=== PATIENT | male | born 1940 | race Caucasian/White ===

== ENCOUNTER 2016-09-04 12:30 | Emergency (ER) | payer MEDICARE, OTHER ==
[~2016-09-04] VITALS: Ht 170.2 cm; Wt 80.0 kg
--- NOTE | 2016-09-04 12:42 | PD ---
HPI Chief Complaint: Vomiting Time Seen by Provider: 12:42 Travel History International Travel<30 days: No Contact w/Intl Traveler<30days: No Traveled to known affect area: No History of Present Illness HPI 76-year-old male presents to emergency department from nursing facility with 2 days of vomiting and one episode of diarrhea yesterday. Patient states he had lunch and then vomited up what he ate today. Currently patient has no complaints of pain, nausea, or fever. Patient has no history of bowel obstruction, diverticulitis, or or previous abdominal surgeries. Patient denies urinary symptoms. Patient has no complaints of dizziness, weakness, upper respiratory symptoms, chest pain, shortness of breath, or cough. He has no known drug allergies. [facility] Social History Alcohol Use: No Tobacco Use: No Substance Use: No Allergies-Medications (Allergen,Severity, Reaction): Coded Allergies: No Known Allergies (Unverified , 09/04/16) Reported Meds & Prescriptions Reported Meds & Active Scripts Active Reported Betamethasone Dipropionate Topical 0.05% Cream 1 Applic TOPICAL BID Risperidone 1 Mg Tab 1 Mg PO HS Allergy (Loratadine) 10 Mg Tab Lisinopril 10 Mg Tab 10 Mg PO DAILY Review of Systems Except as stated in HPI: all other systems reviewed are Neg General / Constitutional: No: Fever Eyes: No: Visual changes HENT: No: Headaches Cardiovascular: No: Chest Pain or Discomfort Respiratory: No: Shortness of Breath Gastrointestinal: No: Abdominal Pain Genitourinary: No: Dysuria Musculoskeletal: No: Pain Skin: No Rash Neurologic: No: Weakness Psychiatric: No: Depression Endocrine: No: Polydipsia Hematologic/Lymphatic: No: Easy Bruising Physical Exam Narrative GENERAL: Patient is in good spirits and in no acute distress. SKIN: Warm and dry. Normal color. Decreased turgor with mild tenting. No diaphoresis. HEAD: Atraumatic. Normocephalic. EYES: Pupils equal and round. No scleral icterus. No injection or drainage. ENT: No nasal bleeding or discharge. Mucous membranes pink and moist. Pharynx is clear. Airway is patent. NECK: Trachea midline. Neck is supple nontender. CARDIOVASCULAR: Regular rate and rhythm. No murmurs gallops or rubs appreciated. RESPIRATORY: No accessory muscle use. Clear to auscultation. Breath sounds equal bilaterally. GASTROINTESTINAL: Abdomen soft, non-tender, nondistended. Normal bowel sounds throughout. Hepatic and splenic margins not palpable. MUSCULOSKELETAL: Extremities without clubbing, cyanosis, or edema. No obvious deformities. NEUROLOGICAL: Awake and alert. No obvious cranial nerve deficits. Motor grossly within normal limits. Five out of 5 muscle strength in the arms and legs. Normal speech. PSYCHIATRIC: Appropriate mood and affect; insight and judgment normal. Data Data Last Documented VS Vital Signs Date Time Temp Pulse Resp B/P Pulse Ox O2 Delivery O2 Flow Rate FiO2 09/04/16 13:31 96 Room Air 09/04/16 12:43 97.9 98 19 139/70 Orders Electrocardiogram (09/04/16 ) Complete Blood Count With Diff (09/04/16 12:49) Lipase (09/04/16 12:49) Lactic Acid (09/04/16 12:49) Urinalysis - C+S If Indicated (09/04/16 12:49) Iv Access Insert/Monitor (09/04/16 12:49) Ecg Monitoring (09/04/16 12:49) Oximetry (09/04/16 12:49) Ondansetron Inj (Zofran Inj) (09/04/16 13:00) Sodium Chlor 0.9% 1000 Ml Inj (Ns 1000 M (09/04/16 12:49) Sodium Chloride 0.9% Flush (Ns Flush) (09/04/16 13:00) Chest, Single Ap (09/04/16 12:49) Abdomen, Flat & Upright (09/04/16 12:49) Troponin I (09/04/16 12:49) Comprehensive Metabolic Panel (09/04/16 13:00) Lactic Acid (09/04/16 15:14) Labs Laboratory Tests Test 09/04/16 09/04/16 09/04/16 13:00 14:45 15:20 White Blood Count 11.8 TH/MM3 Red Blood Count 4.95 MIL/MM3 Hemoglobin 14.5 GM/DL Hematocrit 42.5 % Mean Corpuscular Volume 85.9 FL Mean Corpuscular Hemoglobin 29.4 PG Mean Corpuscular Hemoglobin 34.2 % Concent Red Cell Distribution Width 14.3 % Platelet Count 144 TH/MM3 Mean Platelet Volume 8.8 FL Neutrophils (%) (Auto) 89.1 % Lymphocytes (%) (Auto) 3.7 % Monocytes (%) (Auto) 6.7 % Eosinophils (%) (Auto) 0.1 % Basophils (%) (Auto) 0.4 % Neutrophils # (Auto) 10.5 TH/MM3 Lymphocytes # (Auto) 0.4 TH/MM3 Monocytes # (Auto) 0.8 TH/MM3 Eosinophils # (Auto) 0.0 TH/MM3 Basophils # (Auto) 0.0 TH/MM3 CBC Comment AUTO DIFF Differential Comment AUTO DIFF CONFIRMED Platelet Estimate LOW Platelet Morphology Comment NORMAL Red Cell Morphology Comment NORMAL Sodium Level 139 MEQ/L Potassium Level 3.4 MEQ/L Chloride Level 110 MEQ/L Carbon Dioxide Level 20.2 MEQ/L Anion Gap 9 MEQ/L Blood Urea Nitrogen 19 MG/DL Creatinine 1.05 MG/DL Estimat Glomerular Filtration 68 ML/MIN Rate Random Glucose 102 MG/DL Lactic Acid Level 2.5 mmol/L 1.9 mmol/L Calcium Level 6.9 MG/DL Protein Corrected Calcium 7.6 MG/DL Total Bilirubin 0.9 MG/DL Aspartate Amino Transf 25 U/L (AST/SGOT) Alanine Aminotransferase 29 U/L (ALT/SGPT) Alkaline Phosphatase 55 U/L Troponin I LESS THAN 0.02 NG/ML Total Protein 5.8 GM/DL Albumin 3.0 GM/DL Lipase 67 U/L Urine Color YELLOW Urine Turbidity HAZY Urine pH 5.5 Urine Specific [place] 1.034 Urine Protein 30 mg/dL Urine Glucose (UA) NEG mg/dL Urine Ketones TRACE mg/dL Urine Occult Blood TRACE Urine Nitrite NEG Urine Bilirubin NEG Urine Urobilinogen LESS THAN 2.0 MG/DL Urine Leukocyte Esterase NEG Urine RBC 4 /hpf Urine WBC 3 /hpf Urine Squamous Epithelial <1 /hpf Cells Urine Mucus MANY /lpf Microscopic Urinalysis Comment CULT NOT INDICATED MDM Medical Decision Making Medical Screen Exam Complete: Yes Emergency Medical Condition: Yes Differential Diagnosis Acute nausea and vomiting. Diarrhea. Gastroenteritis. Dehydration. Electrolyte imbalance. Cardiac syndrome. Narrative Course Patient is medically stable at time of exam. Laboratory including CBC, CMP, lactic acid, lipase, urinalysis, and troponin. Chest x-ray and abdominal flat and upright ordered. IV access is obtained patient was given 4 mg Zofran IV as well as 1000 mg normal saline bolus. CBC shows mild leukocytosis of 11.8. Lactic acid is elevated at 2.5. Troponin is negative at 0.02. Lipase is normal. CMP shows potassium 3.4, chloride of 110, Jodee access of 20.2, BUN is 19, creatinine 1.05, lactic acid is elevated at 2.5. Troponin is less than 0.02. Lipase is 67. Albumin is 3.0. Chest x-ray shows no acute process per radiologist. Abdominal x-ray shows signs of probable gastroenteritis with no signs of obstruction. Patient is discussed with Dr. Keating who recommends repeat lactic acid. CT scan is not felt warranted after Dr. Keating examines the patient. Patient tolerated oral challenge, and lactic acid is improved to 1.9 after IV hydration. Patient is able to ambulate to the commode with assistance. Patient is felt stable to be returned to the nursing facility. Patient is given prescription for Zofran 4 mg every 6 hours when necessary nausea/vomiting #15. Patient is to rest and push fluids and follow-up with his primary care physician. Patient can return to emergency Department with worsening symptoms if felt warranted. Diagnosis Primary Impression: Gastroenteritis Additional Impressions: Nausea and vomiting in adult Dehydration Referrals: Primary Care Physician Patient Instructions: Acute Nausea and Vomiting (ED), Dehydration (ED), Gastroenteritis (ED), General Instructions Additional Instructions: Patient is felt stable to be returned to the nursing facility. Patient is given prescription for Zofran 4 mg every 6 hours when necessary nausea/vomiting #15. Patient is to rest and push fluids and follow-up with his primary care physician. Patient can return to emergency Department with worsening symptoms if felt warranted. Disposition: 03 DISCHARGE TO SNF Condition: Stable Trung Cortez Sep 04, 2016 12:42
[2016-09-04 12:43] VITALS: BP 139/70; PULSE 98; RESP 19; TEMP 97.9; O2SAT 95
[2016-09-04] MEDS ORDERED: SODIUM CHLOR 0.9% 1000 ML INJ 1,000 ML IV SCH (12:49)
[2016-09-04] MEDS ORDERED: RISP1TAB2 PO (12:52)
[2016-09-04] MEDS ORDERED: LISI10TA3 PO (12:52)
[2016-09-04] MEDS ORDERED: BETA0.052 TOPICAL (12:52)
[2016-09-04] MEDS ORDERED: LORA-520 (12:52)
[2016-09-04] MEDS ORDERED: ONDANSETRON HCL 4 MG/2 ML VIAL IVP ONE (13:00)
[2016-09-04] MEDS ORDERED: SODIUM CHLORIDE 0.9% FLUSH 10 ML FLUSH IV FLUSH PRN (13:00)
[2016-09-04 13:26] LABS: AUTOMATED NEUTROPHIL # 10.5 TH/MM3 (1.8-7.7); BASOPHIL % 0.4 % (0.0-2.0); EOSINOPHIL % 0.1 % (0.0-4.0); HEMATOCRIT 42.5 % (39.0-51.0); LYMPH % 3.7 % (9.0-44.0); LYMPHOCYTE # 0.4 TH/MM3 (1.0-4.8); MEAN CELL VOLUME 85.9 FL (80.0-100.0); MEAN CORPUSCULAR HEMOGLOBIN 29.4 PG (27.0-34.0); MEAN CORPUSCULAR HGB CONC 34.2 % (32.0-36.0); MONO % 6.7 % (0.0-8.0); NEUT % 89.1 % (16.0-70.0); PLATELET COUNT 144 TH/MM3 (150-450); RED BLOOD COUNT 4.95 MIL/MM3 (4.50-5.90); RED CELL DISTRIBUTION WIDTH 14.3 % (11.6-17.2); WHITE BLOOD COUNT 11.8 TH/MM3 (4.0-11.0)
[2016-09-04 13:31] VITALS: O2SAT 96
[2016-09-04 13:31] LABS: HEMO FLAGS AUTO DIFF
--- NOTE | 2016-09-04 13:51 | RADRPT ---
EXAM DATE/TIME: 09/04/2016 13:09 [facility] COMPARISON: No previous studies available for comparison. INDICATIONS : Chest pain. MEDICAL HISTORY : None. SURGICAL HISTORY : None. ENCOUNTER: Initial ACUITY: 1 day PAIN SCORE: 0/10 LOCATION: Bilateral chest FINDINGS: The lungs are clear without infiltrate, nodule, or mass. There is no appreciable pleural effusion fo r technique. Heart and mediastinum are unremarkable. CONCLUSION: No acute cardiopulmonary disease. Brian Miner MD on September 04, 2016 at 13:49 Board Certified Radiologist. This report was verified electronically.
--- NOTE | 2016-09-04 13:52 | RADRPT ---
EXAM DATE/TIME: 09/04/2016 13:12 [facility] COMPARISON: No previous studies available for comparison. INDICATIONS : Vomiting. MEDICAL HISTORY : None. SURGICAL HISTORY : None. ENCOUNTER: Initial ACUITY: 1 day PAIN SCORE: 0/10 LOCATION: Abdomen FINDINGS: The bowel gas is nonspecific. There are no signs of obstruction or free air for technique. No defini te calcified stones are identified for technique. Multiple nonspecific air-fluid levels are identifie d possibly representing gastroenteritis. CONCLUSION: Nonspecific air-fluid levels possibly gastroenteritis. Brian Miner MD on September 04, 2016 at 13:49 Board Certified Radiologist. This report was verified electronically.
[2016-09-04 14:02] LABS: PLATELET ESTIMATE SMEAR LOW (NORMAL); PLATELET MORPHOLOGY NORMAL (NORMAL); SCAN/DIFF AUTO DIFF CONFIRMED
--- NOTE | 2016-09-04 14:23 | PD ---
Physical Exam Date Seen by Provider: Sep 04, 2016 Time Seen by Provider: 13:00 Narrative I am seeing the patient with Trung Cortez PA-C. 76-year-old gentleman who presents from the correction with reported vomiting 2 episodes with one episode of loose stools yesterday. When the patient arrived he was pain free and discomfort free. The patient reports that his last episode of vomiting was after lunch. He denies any fevers, chills. He denies any abdominal pain. He denies any dizziness. He denies any change in bowel movements other than the loose stools yesterday. He states he had a bowel movement about 11:30 this morning which was normal in consistency. There is no history of abdominal obstructions in the past. Data Data Last Documented VS Vital Signs Date Time Temp Pulse Resp B/P Pulse Ox O2 Delivery O2 Flow Rate FiO2 09/04/16 18:09 94 18 109/61 94 Room Air 09/04/16 12:43 97.9 Orders Electrocardiogram (09/04/16 ) Complete Blood Count With Diff (09/04/16 12:49) Lipase (09/04/16 12:49) Lactic Acid (09/04/16 12:49) Urinalysis - C+S If Indicated (09/04/16 12:49) Iv Access Insert/Monitor (09/04/16 12:49) Ecg Monitoring (09/04/16 12:49) Oximetry (09/04/16 12:49) Ondansetron Inj (Zofran Inj) (09/04/16 13:00) Sodium Chlor 0.9% 1000 Ml Inj (Ns 1000 M (09/04/16 12:49) Sodium Chloride 0.9% Flush (Ns Flush) (09/04/16 13:00) Chest, Single Ap (09/04/16 12:49) Abdomen, Flat & Upright (09/04/16 12:49) Troponin I (09/04/16 12:49) Comprehensive Metabolic Panel (09/04/16 13:00) Lactic Acid (09/04/16 15:14) Labs Laboratory Tests Test 09/04/16 09/04/16 09/04/16 13:00 14:45 15:20 White Blood Count 11.8 TH/MM3 Red Blood Count 4.95 MIL/MM3 Hemoglobin 14.5 GM/DL Hematocrit 42.5 % Mean Corpuscular Volume 85.9 FL Mean Corpuscular Hemoglobin 29.4 PG Mean Corpuscular Hemoglobin 34.2 % Concent Red Cell Distribution Width 14.3 % Platelet Count 144 TH/MM3 Mean Platelet Volume 8.8 FL Neutrophils (%) (Auto) 89.1 % Lymphocytes (%) (Auto) 3.7 % Monocytes (%) (Auto) 6.7 % Eosinophils (%) (Auto) 0.1 % Basophils (%) (Auto) 0.4 % Neutrophils # (Auto) 10.5 TH/MM3 Lymphocytes # (Auto) 0.4 TH/MM3 Monocytes # (Auto) 0.8 TH/MM3 Eosinophils # (Auto) 0.0 TH/MM3 Basophils # (Auto) 0.0 TH/MM3 CBC Comment AUTO DIFF Differential Comment AUTO DIFF CONFIRMED Platelet Estimate LOW Platelet Morphology Comment NORMAL Red Cell Morphology Comment NORMAL Sodium Level 139 MEQ/L Potassium Level 3.4 MEQ/L Chloride Level 110 MEQ/L Carbon Dioxide Level 20.2 MEQ/L Anion Gap 9 MEQ/L Blood Urea Nitrogen 19 MG/DL Creatinine 1.05 MG/DL Estimat Glomerular Filtration 68 ML/MIN Rate Random Glucose 102 MG/DL Lactic Acid Level 2.5 mmol/L 1.9 mmol/L Calcium Level 6.9 MG/DL Protein Corrected Calcium 7.6 MG/DL Total Bilirubin 0.9 MG/DL Aspartate Amino Transf 25 U/L (AST/SGOT) Alanine Aminotransferase 29 U/L (ALT/SGPT) Alkaline Phosphatase 55 U/L Troponin I LESS THAN 0.02 NG/ML Total Protein 5.8 GM/DL Albumin 3.0 GM/DL Lipase 67 U/L Urine Color YELLOW Urine Turbidity HAZY Urine pH 5.5 Urine Specific [place] 1.034 Urine Protein 30 mg/dL Urine Glucose (UA) NEG mg/dL Urine Ketones TRACE mg/dL Urine Occult Blood TRACE Urine Nitrite NEG Urine Bilirubin NEG Urine Urobilinogen LESS THAN 2.0 MG/DL Urine Leukocyte Esterase NEG Urine RBC 4 /hpf Urine WBC 3 /hpf Urine Squamous Epithelial <1 /hpf Cells Urine Mucus MANY /lpf Microscopic Urinalysis Comment CULT NOT INDICATED MDM Medical Record Reviewed: Yes Supervised Visit with DEYVI: Yes Differential Diagnosis Gastroenteritis versus diverticulitis versus cystitis versus bowel obstruction Narrative Course 76-year-old gentleman who presents from the correction after having an episode of vomiting after lunch. The patient had a previous episode and also had a loose stool earlier. The patient is in no discomfort whatsoever. He is not nauseous or having abdominal pain on my examination. His abdomen is soft and nontender. Diagnosis Primary Impression: Nausea and vomiting in adult Additional Impressions: Gastroenteritis Dehydration Med/Other Pt SpecificInfo: Prescription(s) given Scripts Ondansetron Odt (Zofran Odt)4 Mg Tab4 Mg SL Q6HR PRN (Nausea/Vomiting) #15 TAB Prov:Yuval Keating MD 09/04/16 Disposition: 01 DISCHARGE HOME Condition: Stable Yuval Keating MD Sep 04, 2016 14:23
[2016-09-04 14:45] VITALS: BP 120/58; PULSE 92; RESP 18; O2SAT 95
[2016-09-04 15:07] LABS: ALKALINE PHOSPHATASE 55 U/L (45-117); ALT (GPT) 29 U/L (12-78); ANION GAP 9 MEQ/L (5-15); AST (GOT) 25 U/L (15-37); BICARBONATE 20.2 MEQ/L (21.0-32.0); BLOOD UREA NITROGEN 19 MG/DL (7-18); CALCIUM-PROTEIN CORRECTED 7.6 MG/DL (8.5-10.1); CHLORIDE 110 MEQ/L (98-107); GLOMERULAR FILTRATION RATE 68 ML/MIN (>89); POTASSIUM 3.4 MEQ/L (3.5-5.1); SODIUM (NA) 139 MEQ/L (136-145); TOTAL BILIRUBIN ADULT 0.9 MG/DL (0.2-1.0)
[2016-09-04 15:12] LABS: BLOOD, URINE TRACE (NEG); COMMENT (UR) CULT NOT INDICATED; CULTURE IF INDICATED CULT NOT INDICATED; GLUCOSE,URINE NEG (NEG); KETONE, URINE TRACE mg/dL (NEG); MUCUS URINE MANY /lpf (OCC); NITRITE,URINE NEG (NEG); PH, URINE 5.5 (5.0-8.5); SQUAMOUS EPITHELIAL CELL URINE <1 /hpf (0-5); URINE COLOR YELLOW (YELLW/STRAW)
[2016-09-04] MEDS ORDERED: ZOFR4TAB3 SL (16:01)
[2016-09-04 16:06] VITALS: BP 126/84; PULSE 97; RESP 19; O2SAT 94
[2016-09-04 18:09] VITALS: BP 109/61; PULSE 94; RESP 18; O2SAT 94
--- NOTE | 2016-09-05 14:06 | EKG ---
Date Performed: 09/04/2016 Time Performed: 12:56:40 PTAGE: 76 years EKG: Sinus rhythm WITH FIRST DEGREE AV BLOCK LEFT ANTERIOR FASCICULAR BLOCK NONSPECIFIC T-WAVE ABNORMALITY Compared to previous tracing, axis is more leftward and the GA interval is more prolonged. ABNORMAL ECG PREVIOUS TRACING : 06/19/1999 19.29 DOCTOR: Pierre Mcneil Interpretating Date/Time 09/05/2016 14:04:46
== END 2016-09-04 18:50 ==
LOC: NEPE 12:30
DX: K52.9 Noninfective gastroenteritis and colitis, unspecified (principal); R11.2 Nausea with vomiting, unspecified; E86.0 Dehydration; R94.31 Abnormal electrocardiogram [ECG] [EKG]
CPT/HCPCS: 71010; 74020; 80053; 81001; 83605; 83690; 84484; 85025; 93005; 96361; 96374; 99284; J2405; J7030

== ENCOUNTER 2017-06-29 15:44 | Observation (INO) | payer MEDICARE, OTHER ==
[~2017-06-29] VITALS: Ht 170.2 cm; Wt 84.5 kg
[~2017-06-29 15:44] MED LIST: BETA0.052 TOPICAL; LISI10TA3 PO; LORA-520; RISP1TAB2 PO; ZOFR4TAB3 SL
[2017-06-29 15:50] VITALS: BP 146/75; PULSE 77; RESP 16; TEMP 98.6; O2SAT 97
[2017-06-29] MEDS ORDERED: PROPARACAINE HCL 0.5% OPHT SOLN 15 ML BTL LEFT EYE ONE (17:30)
--- NOTE | 2017-06-29 18:08 | PD ---
HPI Chief Complaint: Eye Problems/Injury Time Seen by Provider: 17:25 Travel History International Travel<30 days: No Contact w/Intl Traveler<30days: No Traveled to known affect area: No History of Present Illness HPI 76-year-old male that presents to the ED for evaluation of left eye complaint. Per patient she's had left eye sensation of foreign body as well as some blurry vision since yesterday. Patient is somewhat of a poor historian. He does have a history of schizophrenia and suspect some dementia. He comes here via [facility] for evaluation of this. He denies wearing contacts or glasses. He states that he feels like there is something in his eye but he denies any injury or getting something in his eye. He states this happened yesterday. Per patient he has some pain but he states that his more itchy and annoying. He has some erythema noted on the eye. He denies any trauma. No falls. No history of glaucoma. No other medical issues at this time. Patient states that he does see from the left eye but is blurry. PFSH Past Medical History Genitourinary: Yes (BPH) Hypertension: Yes Schizophrenia: Yes Past Surgical History Tonsillectomy: Yes Social History Alcohol Use: No Tobacco Use: No Substance Use: No Allergies-Medications (Allergen,Severity, Reaction): Coded Allergies: No Known Allergies (Unverified , 09/04/16) Reported Meds & Prescriptions Reported Meds & Active Scripts Active Zofran Odt (Ondansetron Odt) 4 Mg Tab 4 Mg SL Q6HR PRN Reported Betamethasone Dipropionate Topical 0.05% Cream 1 Applic TOPICAL BID Risperidone 1 Mg Tab 1 Mg PO HS Allergy (Loratadine) 10 Mg Tab Lisinopril 10 Mg Tab 10 Mg PO DAILY Review of Systems Except as stated in HPI: all other systems reviewed are Neg Physical Exam Narrative GENERAL: SKIN: Warm and dry. HEAD: Atraumatic. Normocephalic. EYES: Pupils equal and round 4 mms reactive to light and accommodation with exception of the left eye for which he does not react at all.. No scleral icterus. No injection or drainage. EOM intact bilaterally. Peripheral vision intact bilaterally. Patient does have erythema of the conjunctiva. Fluorescein stain revealed no sign of foreign body or deformity. IOP is done and show 47, 41, 55. ENT: No nasal bleeding or discharge. Mucous membranes pink and moist. NECK: Trachea midline. No JVD. CARDIOVASCULAR: Regular rate and rhythm. RESPIRATORY: No accessory muscle use. Clear to auscultation. Breath sounds equal bilaterally. GASTROINTESTINAL: Abdomen soft, non-tender, nondistended. Hepatic and splenic margins not palpable. MUSCULOSKELETAL: Extremities without clubbing, cyanosis, or edema. No obvious deformities. NEUROLOGICAL: Awake and alert. No obvious cranial nerve deficits. Motor grossly within normal limits. Five out of 5 muscle strength in the arms and legs. Normal speech. PSYCHIATRIC: Appropriate mood and affect; insight and judgment normal. Data Data Last Documented VS Vital Signs Date Time Temp Pulse Resp B/P (MAP) Pulse Ox O2 Delivery O2 Flow Rate FiO2 06/29/17 15:50 98.6 77 16 146/75 (98) 97 Room Air Orders Orders Proparacaine 0.5% Opth Soln (Alcaine 0.5 (06/29/17 17:30) MDM Medical Decision Making Medical Screen Exam Complete: Yes Emergency Medical Condition: Yes Medical Record Reviewed: Yes Differential Diagnosis Conjunctivitis versus bacterial conjunctivitis versus foreign body versus glaucoma Narrative Course 76-year-old male that presents to the ED for evaluation of left eye symptoms. Patient was properly examined and was found to have signs and symptoms very concerning for acute angle-closure glaucoma. Patient was evaluated his IOPs on the left eye appear to be very high. I discussed this in my attending Dr. Wood who recommends the patient be moved to a different bed for further treatment and care. I instructed this to the triage nurse was able to get any of that right away. I discussed the case with Dr. Gaytan who to cover the case. Darius Young Jun 29, 2017 18:08
[2017-06-29] MEDS ORDERED: TIMOLOL MALEATE 0.5% OPHT SOLN 5 ML BTL EACH EYE ONE (18:15)
[2017-06-29] MEDS ORDERED: BRIMONIDINE TARTRATE 0.2% OPHT SOLN 5 ML BTL LEFT EYE ONE (18:15)
[2017-06-29] MEDS ORDERED: SODIUM CHLORIDE 0.9% FLUSH 10 ML FLUSH IV FLUSH PRN ×2 (18:15→21:45)
--- NOTE | 2017-06-29 18:26 | PD ---
Data Data Last Documented VS Vital Signs Date Time Temp Pulse Resp B/P (MAP) Pulse Ox O2 Delivery O2 Flow Rate FiO2 06/29/17 15:50 98.6 77 16 146/75 (98) 97 Room Air Orders Orders Proparacaine 0.5% Opth Soln (Alcaine 0.5 (06/29/17 17:30) Basic Metabolic Panel (Bmp) (06/29/17 18:13) Complete Blood Count With Diff (06/29/17 18:13) Prothrombin Time / Inr (Pt) (06/29/17 18:13) Act Partial Throm Time (Ptt) (06/29/17 18:13) Iv Access Insert/Monitor (06/29/17 18:13) Ecg Monitoring (06/29/17 18:13) Oximetry (06/29/17 18:13) Sodium Chloride 0.9% Flush (Ns Flush) (06/29/17 18:15) Timolol 0.5% Opth Soln (Timoptic 0.5% Op (06/29/17 18:15) Timolol 0.5% Opth Soln (Timoptic 0.5% Op (06/29/17 21:00) Brimonidine 0.2% Opth Soln (Alphagan 0.2 (06/29/17 18:15) Brimonidine 0.2% Opth Soln (Alphagan 0.2 (06/29/17 21:00) Acetazolamide Inj (Diamox Inj) (06/29/17 18:15) Acetazolamide Inj (Diamox Inj) (06/29/17 21:00) Latanoprost 0.005% Opth Soln (Xalatan 0. (06/29/17 21:00) Labs Laboratory Tests Test 06/29/17 18:55 White Blood Count 13.6 TH/MM3 Red Blood Count 5.34 MIL/MM3 Hemoglobin 16.1 GM/DL Hematocrit 45.0 % Mean Corpuscular Volume 84.3 FL Mean Corpuscular Hemoglobin 30.1 PG Mean Corpuscular Hemoglobin Concent 35.7 % Red Cell Distribution Width 14.3 % Platelet Count 184 TH/MM3 Mean Platelet Volume 8.1 FL Neutrophils (%) (Auto) 84.7 % Lymphocytes (%) (Auto) 7.5 % Monocytes (%) (Auto) 7.1 % Eosinophils (%) (Auto) 0.3 % Basophils (%) (Auto) 0.4 % Neutrophils # (Auto) 11.5 TH/MM3 Lymphocytes # (Auto) 1.0 TH/MM3 Monocytes # (Auto) 1.0 TH/MM3 Eosinophils # (Auto) 0.0 TH/MM3 Basophils # (Auto) 0.1 TH/MM3 CBC Comment DIFF FINAL Differential Comment Prothrombin Time 10.5 SEC Prothromb Time International Ratio 1.0 RATIO Activated Partial Thromboplast Time 24.5 SEC Blood Urea Nitrogen 15 MG/DL Creatinine 1.02 MG/DL Random Glucose 114 MG/DL Calcium Level 8.9 MG/DL Sodium Level 134 MEQ/L Potassium Level 3.9 MEQ/L Chloride Level 100 MEQ/L Carbon Dioxide Level 26.0 MEQ/L Anion Gap 8 MEQ/L Estimat Glomerular Filtration Rate 71 ML/MIN MDM Supervised Visit with DEYVI: Yes Narrative Course I, Dr. Gaytan, have reviewed the advance practice practitioner's documentation and am in agreement, met with the patient face to face, made the diagnosis, and the medical decision making was done by me. See his note for further details. The patient was initially evaluated in fast track by EDDIE Young and was found to have elevated intraocular pressure in the left eye and transferred to my care shortly afterwards. The patient is a 76-year-old male who presents from a senior living for evaluation of left eye pain, foreign body sensation, and blurry vision. Symptoms started yesterday. On exam the patient has significant scleral injection on the left eye with a clouded cornea and a nonreactive pupil. There is no proptosis. EOMI. Intraocular pressure in the left eye is 55 mmHg, in the right eye is 16 mmHg. Case discussed with on-call insights analyst Dr. Norton. The patient appears to be a very poor historian with history of schizophrenia and dementia and lives in an [facility]. I believe he will benefit from admission to receive medications to control his intraocular pressure. Dr. Norton recommends the patient be started on timolol twice a day, brimonidine twice a day, Diamox 500 mg 4 times a day, and latanoprost at night. Case discussed with hospitalist Dr. Adan who will admit the patient to her service. Diagnosis Primary Impression: Acute glaucoma of left eye Admitting Information Admitting Physician Requests: Jama Kee MD Jun 29, 2017 18:26
[2017-06-29 19:11] LABS: AUTOMATED NEUTROPHIL # 11.5 TH/MM3 (1.8-7.7); BASOPHIL # 0.1 TH/MM3 (0-0.2); BASOPHIL % 0.4 % (0.0-2.0); EOSINOPHIL % 0.3 % (0.0-4.0); HEMOGLOBIN 16.1 GM/DL (13.0-17.0); LYMPH % 7.5 % (9.0-44.0); MEAN CELL VOLUME 84.3 FL (80.0-100.0); MEAN CORPUSCULAR HEMOGLOBIN 30.1 PG (27.0-34.0); MEAN CORPUSCULAR HGB CONC 35.7 % (32.0-36.0); MEAN PLATELET VOLUME 8.1 FL (7.0-11.0); MONO % 7.1 % (0.0-8.0); NEUT % 84.7 % (16.0-70.0); PLATELET COUNT 184 TH/MM3 (150-450); RED BLOOD COUNT 5.34 MIL/MM3 (4.50-5.90); RED CELL DISTRIBUTION WIDTH 14.3 % (11.6-17.2); WHITE BLOOD COUNT 13.6 TH/MM3 (4.0-11.0)
[2017-06-29 19:19] LABS: PROTHROMBIN TIME - PATIENT 10.5 SEC (9.8-11.6)
[2017-06-29 19:32] LABS: CALCIUM 8.9 MG/DL (8.5-10.1); CREATININE 1.02 MG/DL (0.60-1.30)
[2017-06-29] MEDS: TIMOLOL MALEATE 0.5% OPHT SOLN 5 ML BTL LEFT EYE SCH (20:32)
[2017-06-29] MEDS ORDERED: LATANOPROST 0.005% OPHT SOLN 2.5 ML BTL LEFT EYE SCH (21:00)
[2017-06-29] MEDS: BRIMONIDINE TARTRATE 0.2% OPHT SOLN 5 ML BTL LEFT EYE SCH (21:00)
[2017-06-29] MEDS ORDERED: NALOXONE HCL 0.4 MG/ML AMP IV PUSH PRN (21:45)
[2017-06-29] MEDS ORDERED: ACETAMINOPHEN 325 MG TAB PO PRN (21:45)
[2017-06-29 21:55] VITALS: BP 156/90; PULSE 80; RESP 16; TEMP 98.1; O2SAT 95
[2017-06-29] MEDS ORDERED: risperiDONE 1 MG TAB PO SCH (22:00)
--- NOTE | 2017-06-29 22:36 | HHI.HP ---
[facility] Service [facility] Primary Care Physician Unknown Admission Diagnosis acute angle closure glaucoma Diagnoses: Travel History International Travel<30 Days: No Contact w/Intl Traveler <30 Da: No Traveled to Known Affected Are: No History of Present Illness 76-year-old male with a past medical history for hypertension, hyperlipidemia and schizophrenia presents to the emergency department for evaluation of sudden onset left eye pain. The patient reports that last night he began to have left eye pain and the vision in his left eye became blurry. He reports that he can still see and denies any sensitivity to light. He denies chest pain/shortness of breath. Denies nausea/vomiting/diarrhea. No fever/chills. Review of Systems Except as stated in HPI: all other systems reviewed are Neg Past Family Social History Past Medical History Hypertension Hyperlipidemia Schizophrenia Past Surgical History Tonsillectomy Reported Medications Reported Meds & Active Scripts Active Zofran Odt (Ondansetron Odt) 4 Mg Tab 4 Mg SL Q6HR PRN Reported Betamethasone Dipropionate Topical 0.05% Cream 1 Applic TOPICAL BID Risperidone 1 Mg Tab 1 Mg PO HS Allergy (Loratadine) 10 Mg Tab Lisinopril 10 Mg Tab 10 Mg PO DAILY Allergies: Coded Allergies: No Known Allergies (Unverified Allergy, Unknown, 06/29/17) Family History Negative for CAD/DM Social History Negative for alcohol, tobacco and illicit drugs Physical Exam Vital Signs Vital Signs Date Time Temp Pulse Resp B/P (MAP) Pulse Ox O2 Delivery O2 Flow Rate FiO2 06/29/17 21:55 98.1 80 16 156/90 (112) 95 06/29/17 15:50 98.6 77 16 146/75 (98) 97 Room Air Physical Exam GENERAL: male sitting up in bed SKIN: No rashes, ecchymoses or lesions. Cool and dry. HEAD: Atraumatic. Normocephalic. No temporal or scalp tenderness. EYES: Right pupil equal round and reactive. Left pupil unreactive. Vision intact. No conjunctival injection. Extraocular motions intact. No scleral icterus. ENT: Nose without bleeding, purulent drainage or septal hematoma. Throat without erythema, tonsillar hypertrophy or exudate. Uvula midline. Airway patent. NECK: Trachea midline. No JVD or lymphadenopathy. Supple, nontender, no meningeal signs. CARDIOVASCULAR: Regular rate and rhythm without murmurs, gallops, or rubs. RESPIRATORY: Clear to auscultation. Breath sounds equal bilaterally. No wheezes , rales, or rhonchi. GASTROINTESTINAL: Abdomen soft, non-tender, nondistended. No hepato-splenomegaly , or palpable masses. No guarding. MUSCULOSKELETAL: Extremities without clubbing, cyanosis, or edema. No joint tenderness, effusion, or edema noted. No calf tenderness. NEUROLOGICAL: Awake and alert. Cranial nerves II through XII intact. Motor and sensory grossly within normal limits. Normal speech. Laboratory Laboratory Tests Test 06/29/17 18:55 White Blood Count 13.6 Red Blood Count 5.34 Hemoglobin 16.1 Hematocrit 45.0 Mean Corpuscular Volume 84.3 Mean Corpuscular Hemoglobin 30.1 Mean Corpuscular Hemoglobin Concent 35.7 Red Cell Distribution Width 14.3 Platelet Count 184 Mean Platelet Volume 8.1 Neutrophils (%) (Auto) 84.7 Lymphocytes (%) (Auto) 7.5 Monocytes (%) (Auto) 7.1 Eosinophils (%) (Auto) 0.3 Basophils (%) (Auto) 0.4 Neutrophils # (Auto) 11.5 Lymphocytes # (Auto) 1.0 Monocytes # (Auto) 1.0 Eosinophils # (Auto) 0.0 Basophils # (Auto) 0.1 CBC Comment DIFF FINAL Differential Comment Prothrombin Time 10.5 Prothromb Time International Ratio 1.0 Activated Partial Thromboplast Time 24.5 Blood Urea Nitrogen 15 Creatinine 1.02 Random Glucose 114 Calcium Level 8.9 Sodium Level 134 Potassium Level 3.9 Chloride Level 100 Carbon Dioxide Level 26.0 Anion Gap 8 Estimat Glomerular Filtration Rate 71 Result Diagram: 06/29/17185406/29/171854 Caprini VTE Risk Assessment Caprini VTE Risk Assessment: Mod/High Risk (score >= 2) Caprini Risk Assessment Model Point Value = 1 Point Value = 2 Point Value = 3 Point Value = 5 Age 41-60 Minor surgery BMI > 25 kg/m2 Swollen legs Varicose veins or History of unexplained or recurrent spontaneous Oral contraceptives or hormone replacement Sepsis (< 1 month) Serious lung disease, including pneumonia (< 1 month) Abnormal pulmonary function Acute myocardial infarction Congestive heart failure (< 1 month) History of inflammatory bowel disease Medical patient at bed rest Age 61-74 Arthroscopic surgery Major open surgery (> 45 min) Laparoscopic surgery (> 45 min) Malignancy Confined to bed (> 72 hours) Immobilizing plaster cast Central venous access Age >= 75 History of VTE Family history of VTE Factor V Leiden Prothrombin [id number] Lupus anticoagulant Anticardiolipin antibodies Elevated serum homocysteine Heparin-induced thrombocytopenia Other congenital or acquired thrombophilia Stroke (< 1 month) Elective arthroplasty Hip, pelvis, or leg fracture Acute spinal cord injury (< 1 month) Prophylaxis Regimen Total Risk Factor Score Risk Level Prophylaxis Regimen 0-1 Low Early ambulation 2 Moderate Order ONE of the following: *Sequential Compression Device (SCD) *Heparin 5000 units SQ BID 3-4 Higher Order ONE of the following medications: *Heparin 5000 units SQ TID *Enoxaparin/Lovenox 40 mg SQ daily (WT < 150 kg, CrCl > 30 mL/min) *Enoxaparin/Lovenox 30 mg SQ daily (WT < 150 kg, CrCl > 10-29 mL/min) *Enoxaparin/Lovenox 30 mg SQ BID (WT < 150 kg, CrCl > 30 mL/min) AND/OR *Sequential Compression Device (SCD) 5 or more Highest Order ONE of the following medications: *Heparin 5000 units SQ TID (Preferred with Epidurals) *Enoxaparin/Lovenox 40 mg SQ daily (WT < 150 kg, CrCl > 30 mL/min) *Enoxaparin/Lovenox 30 mg SQ daily (WT < 150 kg, CrCl > 10-29 mL/min) *Enoxaparin/Lovenox 30 mg SQ BID (WT < 150 kg, CrCl > 30 mL/min) AND *Sequential Compression Device (SCD) Assessment and Plan Assessment and Plan Assessment/plan: 1. Acute angle closure glaucoma Case discussed with Dr. Norton who recommends timolol twice a day, brimonidine twice a day, Diamox 500 mg 4 times a day, and latanoprost at night. Patient will be evaluated by ophthalmology tomorrow - may be a candidate for laser intervention Concern for compliance 2. Hypertension Continue home lisinopril 3. Schizophrenia Continue home Risperdal FEN Nothing by mouth NS at 84 cc/hour Electrolytes: Monitor and replete when necessary Georgie Adan MD Jun 29, 2017 22:36
[2017-06-30] MEDS: SODIUM CHLOR 0.9% 1000 ML INJ 1,000 ML IV SCH ×2 (01:12→10:55)
[2017-06-30 01:29] VITALS: BP 131/85; PULSE 110; RESP 17; TEMP 97.6; O2SAT 94
[2017-06-30 03:33] VITALS: BP 113/72; PULSE 108; RESP 17; TEMP 98.3; O2SAT 94
[2017-06-30 07:33] LABS: AUTOMATED NEUTROPHIL # 8.8 TH/MM3 (1.8-7.7); BASOPHIL # 0.1 TH/MM3 (0-0.2); BASOPHIL % 0.5 % (0.0-2.0); EOSINOPHIL # 0.1 TH/MM3 (0-0.4); EOSINOPHIL % 0.7 % (0.0-4.0); HEMATOCRIT 44.6 % (39.0-51.0); LYMPH % 11.5 % (9.0-44.0); LYMPHOCYTE # 1.3 TH/MM3 (1.0-4.8); MEAN CELL VOLUME 84.2 FL (80.0-100.0); MEAN CORPUSCULAR HEMOGLOBIN 30.3 PG (27.0-34.0); MEAN CORPUSCULAR HGB CONC 35.9 % (32.0-36.0); MEAN PLATELET VOLUME 8.4 FL (7.0-11.0); MONO % 11.2 % (0.0-8.0); MONOCYTE # 1.3 TH/MM3 (0-0.9); NEUT % 76.1 % (16.0-70.0); PLATELET COUNT 169 TH/MM3 (150-450); RED CELL DISTRIBUTION WIDTH 14.1 % (11.6-17.2); WHITE BLOOD COUNT 11.6 TH/MM3 (4.0-11.0)
[2017-06-30] MEDS ORDERED: LISINOPRIL 10 MG TAB PO SCH (09:00)
[2017-06-30] MEDS ORDERED: SODIUM CHLORIDE 0.9% FLUSH 10 ML FLUSH IV FLUSH SCH (09:00)
[2017-06-30 09:11] VITALS: BP 128/77; PULSE 93; RESP 18; TEMP 98.6; O2SAT 93
--- NOTE | 2017-06-30 09:20 | PD.CONS ---
History of Present Illness Service Ophthalmology Consult Requested By Reason for Consult acute angle closure left eye Primary Care Physician Unknown Diagnoses: History of Present Illness 76 yo M with h/o dementia and schizophrenia presenting from a longterm to the ED c/o 2 day history of left eye pain and blurry vision. Patient is a poor historian. He denies any significant ocular history. Dr. Gaytan found his IOP in the left eye to be in the 50s yesterday with a nonreactive pupil and he diagnosed him with acute angle closure glaucoma. He was started on Diamox, timolol, brimonidine, and latanoprost. Pt states he feels much better this morning with no pain and his vision seems to be improving a little. Past Family Social History Allergies: Coded Allergies: No Known Allergies (Unverified Allergy, Unknown, 06/29/17) Physical Exam Vital Signs Vital Signs Date Time Temp Pulse Resp B/P (MAP) Pulse Ox O2 Delivery O2 Flow Rate FiO2 06/30/17 03:33 98.3 108 17 113/72 (86) 94 06/30/17 01:29 97.6 110 17 131/85 (100) 94 06/29/17 21:55 98.1 80 16 156/90 (112) 95 06/29/17 15:50 98.6 77 16 146/75 (98) 97 Room Air Physical Exam Va sc at near OD 20/40, OS HM EOM full OU, no diplopia CVF full OD, unable OS Pupils 2-1 OD, 3mm nonreactive OS IOP 15 OU mm Hg Anterior exam OD - normal eyelid, C/S W&Q, K clear, AC deep, pupil round, lens clear OS - normal eyelid, conj injection, K edema, AC shallow, pupil fixed, lens clear Laboratory Laboratory Tests Test 06/29/17 18:55 06/30/17 06:45 White Blood Count 13.6 11.6 Red Blood Count 5.34 5.30 Hemoglobin 16.1 16.0 Hematocrit 45.0 44.6 Mean Corpuscular Volume 84.3 84.2 Mean Corpuscular Hemoglobin 30.1 30.3 Mean Corpuscular Hemoglobin Concent 35.7 35.9 Red Cell Distribution Width 14.3 14.1 Platelet Count 184 169 Mean Platelet Volume 8.1 8.4 Neutrophils (%) (Auto) 84.7 76.1 Lymphocytes (%) (Auto) 7.5 11.5 Monocytes (%) (Auto) 7.1 11.2 Eosinophils (%) (Auto) 0.3 0.7 Basophils (%) (Auto) 0.4 0.5 Neutrophils # (Auto) 11.5 8.8 Lymphocytes # (Auto) 1.0 1.3 Monocytes # (Auto) 1.0 1.3 Eosinophils # (Auto) 0.0 0.1 Basophils # (Auto) 0.1 0.1 CBC Comment DIFF FINAL AUTO DIFF Differential Comment Prothrombin Time 10.5 Prothromb Time International Ratio 1.0 Activated Partial Thromboplast Time 24.5 Blood Urea Nitrogen 15 Creatinine 1.02 Random Glucose 114 Calcium Level 8.9 Sodium Level 134 Potassium Level 3.9 Chloride Level 100 Carbon Dioxide Level 26.0 Anion Gap 8 Estimat Glomerular Filtration Rate 71 Result Diagram: 06/30/17 0645 06/29/17 1855 Assessment and Plan Problem List: (1) Acute angle-closure glaucoma of left eye ICD Codes: H40.212 - Acute angle-closure glaucoma, left eye Plan: Intraocular pressure has improved greatly overnight from 50s to 15 this morning. Will need permanent treatment with laser peripheral iridotomy which I will schedule as an outpatient (the laser is located at [facility]). Discharge today on Diamox 500mg QID, timolol drops 0.5% 1 drop BID OS, brimonidine 0.2% 1 drop TID OS, latanoprost 1 drop qhs OS. Patient to follow up tomorrow morning (07/01/17) in my clinic at 9:00 AM ([address] [facility]. ). Daisha Norton MD Jun 30, 2017 09:20
[2017-06-30] MEDS ORDERED: Brimonidine 0.2% Opth Soln LEFT EYE (09:40)
[2017-06-30] MEDS ORDERED: LATA.005%O LEFT EYE (09:40)
[2017-06-30] MEDS ORDERED: OPTH LEFT EYE (09:40)
[2017-06-30] MEDS ORDERED: TIMOLOL 0.5% LEFT EYE (09:40)
[2017-06-30] MEDS ORDERED: ACET250T3 PO (09:40)
--- NOTE | 2017-06-30 09:41 | HHI.DCPOC ---
Discharge Care Plan Diagnosis: (1) Acute angle-closure glaucoma of left eye Additional Problems Patient to follow up tomorrow morning (07/01/17) with Dr. Norton at 9:00 AM ([address] [facility]. [phone]). Goals to Promote Your Health * To prevent worsening of your condition and complications * To maintain your health at the optimal level Directions to Meet Your Goals Take your medications as prescribed Follow your dietary instruction Follow activity as directed Keep your appointments as scheduled Take your immunizations and boosters as scheduled If your symptoms worsen call your PCP, if no PCP go to Urgent Care Center or Emergency Room Smoking is Dangerous to Your Health. Avoid second hand smoke Call the 24-hour hour crisis hotline for domestic abuse at Serene Ramirez MD Jun 30, 2017 09:41
--- NOTE | 2017-06-30 09:42 | HHI.DS ---
Discharge Summary Admission Date Jun 29, 2017 at 19:43 Discharge Date: Jun 30, 2017 Admitting Diagnosis acute angle closure glaucoma (1) Acute angle-closure glaucoma of left eye ICD Code: H40.212 - Acute angle-closure glaucoma, left eye Diagnosis: Principal Procedures See hospital course Brief History - From Admission 76-year-old male with a past medical history for hypertension, hyperlipidemia and schizophrenia presents to the emergency department for evaluation of sudden onset left eye pain. The patient reports that last night he began to have left eye pain and the vision in his left eye became blurry. He reports that he can still see and denies any sensitivity to light. He denies chest pain/shortness of breath. Denies nausea/vomiting/diarrhea. No fever/chills. CBC/BMP: 06/30/17 0645 06/29/17 1855 Significant Findings Laboratory Tests Test 06/29/17 18:55 06/30/17 06:45 White Blood Count 13.6 TH/MM3 (4.0-11.0) 11.6 TH/MM3 (4.0-11.0) Neutrophils (%) (Auto) 84.7 % (16.0-70.0) 76.1 % (16.0-70.0) Lymphocytes (%) (Auto) 7.5 % (9.0-44.0) Neutrophils # (Auto) 11.5 TH/MM3 (1.8-7.7) 8.8 TH/MM3 (1.8-7.7) Monocytes # (Auto) 1.0 TH/MM3 (0-0.9) 1.3 TH/MM3 (0-0.9) Random Glucose 114 MG/DL (74-106) Sodium Level 134 MEQ/L (136-145) Estimat Glomerular Filtration Rate 71 ML/MIN (>89) Monocytes (%) (Auto) 11.2 % (0.0-8.0) PE at Discharge GENERAL: in NAD HEENT: left eye red. EOMI intact. no pain with eye movement. no discharge noted. CARDIOVASCULAR: Regular rate and rhythm without murmurs, gallops, or rubs. RESPIRATORY: Breath sounds equal bilaterally. No accessory muscle use. GASTROINTESTINAL: Abdomen soft, non-tender, nondistended. MUSCULOSKELETAL: No cyanosis, or edema. BACK: Nontender without obvious deformity. No CVA tenderness. Pt update on day of discharge Follow-up for acute angle-closure glaucoma of the left eye Patient stated that pain resolved. He denies any eye pain. He also denies any blurry vision. He was seen by Dr. Norton this morning. I spoke to Dr. Norton the phone in which she stated that patient can be discharged and follow-up as out patient tomorrow per her consult note. Patient has no other complaints. He denies any headache or nausea or vomiting. Hospital Course Patient presented with eye pain found to have acute angle closure glaucoma. Dr. Norton food service counter clerk was called in which she recommended timolol, brimonidine, Diamox and latanoprost. Symptoms improved drastically with this treatment. Patient was able to discharge since the next day he was asymptomatic. Per Dr. Norton continue with the current regimen. She will see patient tomorrow in the office at 9 AM and he will need laser treatment as outpatient. Pt Condition on Discharge: Stable Discharge Disposition: Discharge Home Discharge Time: <= 30 minutes Discharge Instructions DIET: Follow Instructions for: Heart Healthy Diet Activities you can perform: See Additionl Instruction Other Activity Instructions: No driving until eye issue resolves. Follow up Referrals: Ophthalmology - 07/01/17 with Daisha Norton MD Follow up with Dr. Norton tomorrow (06/30/17) at 9 AM PCP Follow-up - 1 Week New Medications: Acetazolamide (Acetazolamide) 250 Mg Tab 500 MG PO QID for acute glaucoma, #112 TAB 0 Refills Latanoprost Opth Drops (Xalatan Opth Drops) 0.005% Drops 1 DROP LEFT EYE HS for acute glaucoma, #1 BOTTLE 0 Refills [Brimonidine 0.2% Opth Soln] () 100 DROP/5 ML SOLN 1 DROP LEFT EYE TID for acute glaucoma, #1 BOTTLE 0 Refills [Timolol 0.5% Opth Soln] () 100 DROP/5 ML SOLN 1 DROP LEFT EYE Q12HR for acute glaucoma, #1 BOTTLE 0 Refills Continued Medications: Betamethasone Dipropionate Topical (Betamethasone Dipropionate Topical) 0.05% Cream 1 APPLIC TOPICAL BID for Dermatoses, #15 GM 0 Refills Lisinopril (Lisinopril) 10 Mg Tab 10 MG PO DAILY, #30 TAB 0 Refills Loratadine (Allergy) 10 Mg Tab Ondansetron Odt (Zofran Odt) 4 Mg Tab 4 MG SL Q6HR PRN for Nausea/Vomiting, #15 TAB Risperidone (Risperidone) 1 Mg Tab 1 MG PO HS, #30 TAB 0 Refills Serene Ramirez MD Jun 30, 2017 09:42
[2017-06-30] MEDS: BRIMONIDINE TARTRATE 0.2% OPHT SOLN 5 ML BTL LEFT EYE SCH (10:02)
[2017-06-30] MEDS: TIMOLOL MALEATE 0.5% OPHT SOLN 5 ML BTL LEFT EYE SCH (10:41)
[2017-06-30 12:18] VITALS: BP 118/75; PULSE 87; RESP 18; TEMP 98.1; O2SAT 95
== END 2017-06-30 17:24 | disposition home or self-care (01) ==
LOC: NEPK 15:44 → NEDA 19:43 → NEPGCP 21:25
PROVIDERS: ADMIT Family Medicine; ATTEND Family Medicine
DX: H40.212 Acute angle-closure glaucoma, left eye (principal); I10 Essential (primary) hypertension; E78.5 Hyperlipidemia, unspecified; F03.90 Unspecified dementia, unspecified severity, without behavioral disturbance, psychotic disturbance, mood disturbance, and anxiety; F20.9 Schizophrenia, unspecified
CPT/HCPCS: 80048; 85025; 85610; 85730; 96361; 96374; 96376; 99285; G0378; J1120; J7030

== ENCOUNTER 2017-07-18 14:05 | Emergency (ER) | payer MEDICARE, OTHER ==
[~2017-07-18] VITALS: Ht 167.6 cm; Wt 85.0 kg
[~2017-07-18 14:05] MED LIST changes: +ACET250T3 PO; +Brimonidine 0.2% Opth Soln LEFT EYE; +LATA.005%O LEFT EYE; +OPTH LEFT EYE; +TIMOLOL 0.5% LEFT EYE
[2017-07-18 14:24] VITALS: BP 130/71; PULSE 95; RESP 18; TEMP 97.8; O2SAT 98
[2017-07-18] MEDS ORDERED: TIMO0.5S5 LEFT EYE (14:49)
[2017-07-18] MEDS ORDERED: ACET-822 PO (14:49)
[2017-07-18] MEDS ORDERED: COLA100C5 PO (14:49)
[2017-07-18] MEDS ORDERED: ACET250T3 PO (14:49)
[2017-07-18] MEDS ORDERED: LEVOTAB PO (14:49)
[2017-07-18] MEDS ORDERED: BRIM0.2S4 LEFT EYE (14:49)
--- NOTE | 2017-07-18 15:02 | PD ---
HPI Chief Complaint: Dizziness Time Seen by Provider: 15:02 Travel History International Travel<30 days: No Contact w/Intl Traveler<30days: No Traveled to known affect area: No History of Present Illness HPI 76-year-old male came to the emergency room with history of dizziness from the [facility] facility. As per the patient this is been going on for past 1 week and it' s apparently getting better. However he complained about it to the staff today and hence they sent him here to be evaluated. Patient says it gets worse when he turns his head. No history of syncopal episode or fall. Patient is having a hard time describing his dizziness. He says occasionally he feels lightheaded. Vital signs are stable. Patient is awake and answering questions appropriately. He does not describe any weakness of one side of his body. No tingling or numbness her speech issues. PFSH Past Medical History Narrative Medical List of his past medical, surgical, social and family history is reviewed from the nursing note. Hx Anticoagulant Therapy: No Cardiovascular Problems: Yes (HTN) High Cholesterol: Yes Diabetes: No Diminished Hearing: No Genitourinary: Yes (BPH) Hypertension: Yes Schizophrenia: Yes Tetanus Vaccination: Unknown Influenza Vaccination: No ?: Not Past Surgical History Tonsillectomy: Yes Social History Alcohol Use: No Tobacco Use: No Substance Use: No Allergies-Medications (Allergen,Severity, Reaction): Coded Allergies: No Known Allergies (Unverified Allergy, Unknown, 07/18/17) Comments No known drug allergies. Reported Meds & Prescriptions Reported Meds & Active Scripts Active Xalatan Opth Drops (Latanoprost) 0.005% Drops 1 Drop LEFT EYE HS Zofran Odt (Ondansetron Odt) 4 Mg Tab 4 Mg SL Q6HR PRN Reported Tylenol Extra Strength (Acetaminophen) 500 Mg Tablet 500 Mg PO Q4-6H PRN Acetazolamide 250 Mg Tab 500 Mg PO BID Brimonidine Opth Drops (Brimonidine Tartrate) 0.2% Soln 1 Drop LEFT EYE TID Timoptic Opth Drops (Timolol Opth Drops) 0.5 % Soln 1 Drop LEFT EYE Q12HR Levocetirizine 5 Mg Tab 5 Mg PO DAILY Colace (Docusate Sodium) 100 Mg Capsule 100 Mg PO HS Risperidone 1 Mg Tab 1 Mg PO HS Lisinopril 10 Mg Tab 10 Mg PO DAILY Narrative Medication List of his home medications reviewed from the nursing note. Review of Systems Except as stated in HPI: all other systems reviewed are Neg Neurologic: Positive: Dizziness Physical Exam Narrative GENERAL: Awake, alert, no obvious distress SKIN: Focused skin assessment warm/dry. HEAD: Atraumatic. Normocephalic. EYES: Pupils equal and round. No scleral icterus. No injection or drainage. ENT: No nasal bleeding or discharge. Mucous membranes pink and moist. NECK: Trachea midline. No JVD. CARDIOVASCULAR: Regular rate and rhythm. No murmur appreciated. RESPIRATORY: No accessory muscle use. Clear to auscultation. Breath sounds equal bilaterally. GASTROINTESTINAL: Abdomen soft, non-tender, nondistended. Hepatic and splenic margins not palpable. MUSCULOSKELETAL: No obvious deformities. No clubbing. No cyanosis. No edema. NEUROLOGICAL: Awake and alert. No obvious cranial nerve deficits. Motor grossly within normal limits. Normal speech. PSYCHIATRIC: Appropriate mood and affect; insight and judgment normal. Data Data Last Documented VS Vital Signs Date Time Temp Pulse Resp B/P (MAP) Pulse Ox O2 Delivery O2 Flow Rate FiO2 07/18/17 16:26 88 102/57 (72) 07/18/17 14:31 97 Room Air 07/18/17 14:24 97.8 18 Orders Orders Electrocardiogram (07/18/17 15:06) Prothrombin Time / Inr (Pt) (07/18/17 15:06) Complete Blood Count With Diff (07/18/17 15:06) Basic Metabolic Panel (Bmp) (07/18/17 15:06) Creatine Kinase (Cpk) (07/18/17 15:06) Troponin I (07/18/17 15:06) Urinalysis - C+S If Indicated (07/18/17 15:06) Ct Brain W/O Iv Contrast(Rout) (07/18/17 15:06) Chest, Single Ap (07/18/17 15:06) Ecg Monitoring (07/18/17 15:06) Iv Access Insert/Monitor (07/18/17 15:06) Oximetry (07/18/17 15:06) Sodium Chloride 0.9% Flush (Ns Flush) (07/18/17 15:15) Orthostatic Vital Signs (07/18/17 15:06) Meclizine (Antivert) (07/18/17 16:15) Ed Discharge Order (07/18/17 16:56) Sodium Chlorid 0.9% 500 Ml Inj (Ns 500 M (07/18/17 17:00) Labs Laboratory Tests Test 07/18/17 14:35 07/18/17 15:25 White Blood Count 11.6 TH/MM3 Red Blood Count 5.43 MIL/MM3 Hemoglobin 16.2 GM/DL Hematocrit 46.4 % Mean Corpuscular Volume 85.5 FL Mean Corpuscular Hemoglobin 29.8 PG Mean Corpuscular Hemoglobin Concent 34.8 % Red Cell Distribution Width 14.5 % Platelet Count 216 TH/MM3 Mean Platelet Volume 8.6 FL Neutrophils (%) (Auto) 72.0 % Lymphocytes (%) (Auto) 17.2 % Monocytes (%) (Auto) 8.6 % Eosinophils (%) (Auto) 1.5 % Basophils (%) (Auto) 0.7 % Neutrophils # (Auto) 8.3 TH/MM3 Lymphocytes # (Auto) 2.0 TH/MM3 Monocytes # (Auto) 1.0 TH/MM3 Eosinophils # (Auto) 0.2 TH/MM3 Basophils # (Auto) 0.1 TH/MM3 CBC Comment DIFF FINAL Differential Comment Prothrombin Time 10.4 SEC Prothromb Time International Ratio 1.0 RATIO Blood Urea Nitrogen 18 MG/DL Creatinine 0.98 MG/DL Random Glucose 106 MG/DL Calcium Level 8.4 MG/DL Sodium Level 138 MEQ/L Potassium Level 3.5 MEQ/L Chloride Level 111 MEQ/L Carbon Dioxide Level 18.9 MEQ/L Anion Gap 8 MEQ/L Estimat Glomerular Filtration Rate 74 ML/MIN Total Creatine Kinase 71 U/L Troponin I LESS THAN 0.02 NG/ML Urine Color YELLOW Urine Turbidity HAZY Urine pH 6.0 Urine Specific Josephine 1.025 Urine Protein TRACE mg/dL Urine Glucose (UA) NEG mg/dL Urine Ketones 10 mg/dL Urine Occult Blood NEG Urine Nitrite NEG Urine Bilirubin NEG Urine Urobilinogen 2.0 MG/DL Urine Leukocyte Esterase NEG Urine RBC 2 /hpf Urine WBC 2 /hpf Urine Squamous Epithelial Cells <1 /hpf Urine Amorphous Sediment RARE Urine Hyaline Casts 3 /lpf Urine Mucus FEW /lpf Microscopic Urinalysis Comment CATH-CULT NOT IND MDM Medical Decision Making Medical Screen Exam Complete: Yes Emergency Medical Condition: Yes Medical Record Reviewed: Yes Interpretation(s) Twelve-lead EKG was reviewed by me. Normal sinus rhythm, left axis deviation, first-degree AV block, nonspecific ST-T wave changes. Heart rate of 84 bpm. Differential Diagnosis CVA, PTT, orthostatic Hypotension Narrative Course 4:24 PM blood test results of back and within acceptable limits. Awaiting for the CT scan to be read. The nurse is getting orthostatic vital signs and I'll ask her to ambulate the patient. If those are within acceptable limits patient will be discharged back to the left. 4:56 PM patient ambulated well. Patient's blood pressure dropped somewhat after sitting to standing. I have ordered 500 cc of IV fluid bolus. After the fluid I'll discharge him home. Procedures EKG Prior to Arrival: No Diagnosis Primary Impression: Dizziness Additional Impression: Dehydration Referrals: Primary Care Physician Additional Instructions: Drink lots of fluid. Return to ER if condition worsens or any other new concerns. Otherwise follow-up with your primary care next couple days. Med/Other Pt SpecificInfo: No Change to Meds Disposition: 01 DISCHARGE HOME Condition: Stable Ananth Landrum MD Jul 18, 2017 15:02
[2017-07-18] MEDS ORDERED: SODIUM CHLORIDE 0.9% FLUSH 10 ML FLUSH IVF PRN (15:15)
[2017-07-18 15:41] LABS: AUTOMATED NEUTROPHIL # 8.3 TH/MM3 (1.8-7.7); BASOPHIL # 0.1 TH/MM3 (0-0.2); BASOPHIL % 0.7 % (0.0-2.0); EOSINOPHIL # 0.2 TH/MM3 (0-0.4); EOSINOPHIL % 1.5 % (0.0-4.0); HEMATOCRIT 46.4 % (39.0-51.0); HEMOGLOBIN 16.2 GM/DL (13.0-17.0); LYMPH % 17.2 % (9.0-44.0); MEAN CELL VOLUME 85.5 FL (80.0-100.0); MEAN CORPUSCULAR HEMOGLOBIN 29.8 PG (27.0-34.0); MEAN CORPUSCULAR HGB CONC 34.8 % (32.0-36.0); MEAN PLATELET VOLUME 8.6 FL (7.0-11.0); MONO % 8.6 % (0.0-8.0); PLATELET COUNT 216 TH/MM3 (150-450); RED BLOOD COUNT 5.43 MIL/MM3 (4.50-5.90); RED CELL DISTRIBUTION WIDTH 14.5 % (11.6-17.2); WHITE BLOOD COUNT 11.6 TH/MM3 (4.0-11.0)
--- NOTE | 2017-07-18 15:42 | RADRPT ---
EXAM DATE/TIME: 07/18/2017 15:23 [facility] COMPARISON: CHEST SINGLE AP, September 04, 2016, 13:09. INDICATIONS : Dr. swain pt, possible cva MEDICAL HISTORY : none known SURGICAL HISTORY : none known ENCOUNTER: Initial ACUITY: 1 day PAIN SCORE: 0/10 LOCATION: Bilateral chest FINDINGS: Portable AP view of the chest demonstrates a normal-sized cardiac silhouette. Lungs are underinflated with atelectasis at the bases. No effusion or pneumothorax is identified. The bones and soft tissues demonstrate no acute finding. CONCLUSION: Underinflated examination with atelectasis at the lung bases. Otherwise, no acute finding is identifi ed. Yeyo Wylie MD on July 18, 2017 at 15:40 Board Certified Radiologist. This report was verified electronically.
[2017-07-18 15:45] LABS: PROTHROMBIN TIME - PATIENT 10.4 SEC (9.8-11.6)
[2017-07-18 15:47] LABS: AMORPHOUS SEDIMENT, URINE RARE; BILIRUBIN, URINE NEG (NEG); BLOOD, URINE NEG (NEG); GLUCOSE,URINE NEG (NEG); HYALINE CAST, URINE 3 /lpf (RARE); KETONE, URINE 10 mg/dL (NEG); MUCUS URINE FEW /lpf (OCC); NITRITE,URINE NEG (NEG); SQUAMOUS EPITHELIAL CELL URINE <1 /hpf (0-5); URINE COLOR YELLOW (YELLW/STRAW); URINE LEUKOCYTE ESTERASE NEG (NEG)
[2017-07-18 16:04] LABS: BICARBONATE 18.9 MEQ/L (21.0-32.0); BLOOD UREA NITROGEN 18 MG/DL (7-18); CALCIUM 8.4 MG/DL (8.5-10.1); CHLORIDE 111 MEQ/L (98-107); CREATININE 0.98 MG/DL (0.60-1.30); GLOMERULAR FILTRATION RATE 74 ML/MIN (>89); GLUCOSE,RANDOM 106 MG/DL (74-106); SODIUM (NA) 138 MEQ/L (136-145); TROPONIN I LESS THAN 0.02 NG/ML (0.02-0.05)
[2017-07-18] MEDS ORDERED: MECLIZINE HCL 25 MG TAB PO ONE (16:15)
[2017-07-18 16:24] VITALS: BP 108/65
--- NOTE | 2017-07-18 16:24 | RADRPT ---
EXAM DATE/TIME: 07/18/2017 15:52 [facility] COMPARISON: No previous studies available for comparison. INDICATIONS : Dizziness today. RADIATION DOSE: 51.40 CTDIvol (mGy) MEDICAL HISTORY : Hypertension. SURGICAL HISTORY : None. ENCOUNTER: Initial ACUITY: 1 day PAIN SCALE: 3/10 LOCATION: Bilateral head TECHNIQUE: Multiple contiguous axial images were obtained of the head. Using automated exposure control and adj ustment of the mA and/or kV according to patient size, radiation dose was kept as low as reasonably a chievable to obtain optimal diagnostic quality images. DICOM format image data is available electro nically for review and comparison. FINDINGS: CEREBRUM: There is generalized atrophy. Ventricles are within normal limits given the degree of atrophy present . There is moderate periventricular white matter low attenuation, slightly asymmetric in the left fro ntal region. No evidence of midline shift, mass lesion, hemorrhage or acute infarction. No extra-ax ial fluid collections are seen. POSTERIOR FOSSA: The cerebellum and brainstem are intact. The 4th ventricle is midline. The cerebellopontine angle i s unremarkable. EXTRACRANIAL: There is minimal right maxillary mucoperiosteal thickening. SKULL: The calvaria is intact. No evidence of skull fracture. CONCLUSION: 1. No acute intracranial abnormality is identified. 2. Chronic changes include mild generalized atrophy and periventricular white matter changes characte ristic of chronic microvascular ischemia. Yeyo Wylie MD on July 18, 2017 at 16:21 Board Certified Radiologist. This report was verified electronically.
[2017-07-18 16:25] VITALS: BP 120/73
[2017-07-18 16:26] VITALS: BP 102/57
[2017-07-18] MEDS ORDERED: SODIUM CHLORID 0.9% 500 ML INJ 500 ML IV ONE (17:00)
--- NOTE | 2017-07-19 22:47 | EKG ---
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
== END 2017-07-18 19:15 | disposition home or self-care (01) ==
LOC: NEPE 14:05
DX: R42 Dizziness and giddiness (principal); E86.0 Dehydration; I10 Essential (primary) hypertension; R94.31 Abnormal electrocardiogram [ECG] [EKG]
CPT/HCPCS: 70450; 71045; 80048; 81001; 82550; 84484; 85025; 85610; 93005; 96360; 99285; J7040

== ENCOUNTER → 2017-07-27 | Outpatient (CLI) | payer MEDICARE, OTHER ==
[~2017-07-27] MED LIST changes: +ACET-822 PO; +BALANCED SALT SOLN OPHT IRRIG 15 ML BTL ONE; -BETA0.052 TOPICAL; +BRIM0.2S4 LEFT EYE; +BRIMONIDINE TARTRATE 0.15% OPHT SOLN 5 ML BTL ONE; -Brimonidine 0.2% Opth Soln LEFT EYE; +COLA100C5 PO; +LEVOTAB PO; -LORA-520; -OPTH LEFT EYE; +PILOCARPINE HCL 2% OPHT SOLN 15 ML BTL ONE; +PROPARACAINE HCL 0.5% OPHT SOLN 15 ML BTL ONE; +TIMO0.5S5 LEFT EYE; -TIMOLOL 0.5% LEFT EYE
== END ==
LOC: PHSDC 10:56
PROVIDERS: ATTEND Ophthalmology
DX: H40.212 Acute angle-closure glaucoma, left eye (principal); I10 Essential (primary) hypertension; E78.5 Hyperlipidemia, unspecified

== ENCOUNTER 2017-09-10 13:14 | Emergency (ER) | payer MEDICARE, OTHER ==
[~2017-09-10] VITALS: Ht 180.3 cm; Wt 100.0 kg
[~2017-09-10 13:14] MED LIST changes: -BALANCED SALT SOLN OPHT IRRIG 15 ML BTL ONE; -BRIMONIDINE TARTRATE 0.15% OPHT SOLN 5 ML BTL ONE; -PILOCARPINE HCL 2% OPHT SOLN 15 ML BTL ONE; -PROPARACAINE HCL 0.5% OPHT SOLN 15 ML BTL ONE
[2017-09-10 13:32] VITALS: BP 139/74; PULSE 90; RESP 18; TEMP 98; O2SAT 97
--- NOTE | 2017-09-10 13:38 | PD ---
HPI Chief Complaint: Musculoskeletal Complaint Time Seen by Provider: 13:31 Travel History International Travel<30 days: No Contact w/Intl Traveler<30days: No History of Present Illness HPI 77-year-old male brought in from local nursing facility with history of dementia, presents emergency department with complaints of neck and upper back pain. Patient reportedly fell out of his own bed and was trapped between the bed and the wall last evening for approximately 30 minutes. Patient now complains of pain and stiffness to the neck and back. He was sent for evaluation. He has no loss of function. He has no history of loss of consciousness or headache. Patient is alert and responsive and appears pleasant. There is no report of open wounds or abrasions. Patient appears to have some mild parkinsonian traits. He is a poor historian due to his dementia. PFSH Past Medical History Hx Anticoagulant Therapy: No Cardiovascular Problems: Yes (HTN) High Cholesterol: Yes Diabetes: No Diminished Hearing: No Genitourinary: Yes (BPH) Hypertension: Yes Schizophrenia: Yes Past Surgical History Tonsillectomy: Yes Social History Alcohol Use: No Tobacco Use: No Substance Use: No Allergies-Medications (Allergen,Severity, Reaction): Coded Allergies: No Known Allergies (Unverified Allergy, Unknown, 07/18/17) Reported Meds & Prescriptions Reported Meds & Active Scripts Active Xalatan Opth Drops (Latanoprost) 0.005% Drops 1 Drop LEFT EYE HS Zofran Odt (Ondansetron Odt) 4 Mg Tab 4 Mg SL Q6HR PRN Reported Tylenol Extra Strength (Acetaminophen) 500 Mg Tablet 500 Mg PO Q4-6H PRN Acetazolamide 250 Mg Tab 500 Mg PO BID Brimonidine Opth Drops (Brimonidine Tartrate) 0.2% Soln 1 Drop LEFT EYE TID Timoptic Opth Drops (Timolol Opth Drops) 0.5 % Soln 1 Drop LEFT EYE Q12HR Levocetirizine 5 Mg Tab 5 Mg PO DAILY Colace (Docusate Sodium) 100 Mg Capsule 100 Mg PO HS Risperidone 1 Mg Tab 1 Mg PO HS Lisinopril 10 Mg Tab 10 Mg PO DAILY Review of Systems Except as stated in HPI: all other systems reviewed are Neg General / Constitutional: No: Fever Eyes: No: Visual changes HENT: No: Headaches Cardiovascular: No: Chest Pain or Discomfort Respiratory: No: Shortness of Breath Gastrointestinal: No: Abdominal Pain Genitourinary: No: Dysuria Musculoskeletal: Positive: Myalgias, Arthralgias, Limited ROM, Pain (See history of present illness) Skin: No Rash Neurologic: No: Weakness Psychiatric: No: Depression Endocrine: No: Polydipsia Hematologic/Lymphatic: No: Easy Bruising Physical Exam Narrative GENERAL: Patient appears in no obvious distress. SKIN: Warm and dry. Normal color. Normal turgor. No signs of trauma. HEAD: Atraumatic. Normocephalic. EYES: Pupils equal and round. No scleral icterus. No injection or drainage. ENT: No nasal bleeding or discharge. Mucous membranes pink and moist. Pharynx is clear. Airways patent NECK: Trachea midline. No complaints of bony tenderness or step-off. Patient is very stiff consistent with Parkinson's. CARDIOVASCULAR: Regular rate and rhythm. RESPIRATORY: No accessory muscle use. Clear to auscultation. Breath sounds equal bilaterally. No tenderness with palpation to the thoracic spine or ribs. GASTROINTESTINAL: Abdomen soft, non-tender, nondistended. Hepatic and splenic margins not palpable. MUSCULOSKELETAL: Extremities without clubbing, cyanosis, or edema. No obvious deformities. Patient is noted to have parkinsonian movements. No bony tenderness to the thoracic or lumbar spine. All extremities are moving, without obvious pain. NEUROLOGICAL: Awake and alert. No obvious cranial nerve deficits. Motor grossly within normal limits. Five out of 5 muscle strength in the arms and legs. Normal speech. PSYCHIATRIC: Appropriate mood and affect; insight and judgment normal. Data Data Last Documented VS Vital Signs Date Time Temp Pulse Resp B/P (MAP) Pulse Ox O2 Delivery O2 Flow Rate FiO2 09/10/17 13:32 98.0 90 18 139/74 (95) 97 Room Air Orders Orders Acetaminophen (Tylenol) (09/10/17 13:45) Chest, Single Ap (09/10/17 13:31) Spine, Cervical - Ltd (Ap&Lat) (09/10/17 13:31) Spine, Thoracic-Ap/Lat/Sw(3vw) (09/10/17 13:31) Spine, Lumbar - Ltd (Ap & Lat) (09/10/17 13:31) [facility] Medical Decision Making Medical Screen Exam Complete: Yes Emergency Medical Condition: Yes Differential Diagnosis Fall. Muscle aches. Compression fracture. Arthritis. Dementia. Narrative Course Patient is medically stable at time of exam. X-rays of the chest, cervical spine, thoracic spine, lumbar spine ordered. Patient is given acetaminophen 650 mg p.o. All x-rays show arthritis, without acute fracture per radiologist. Patient is medically cleared for return to the nursing facility. He can take Tylenol as needed for his pain. Patient to follow-up with his primary care physician as needed. Diagnosis Primary Impression: Neck pain Additional Impression: Back pain Qualified Codes: M54.6 - Pain in thoracic spine Patient Instructions: General Instructions Additional Instructions: X-rays of the chest, cervical spine, thoracic spine, lumbar spine ordered. Patient is given acetaminophen 650 mg p.o. All x-rays show arthritis, without acute fracture per radiologist. Patient is medically cleared for return to the nursing facility. He can take Tylenol as needed for his pain. Patient to follow-up with his primary care physician as needed. Disposition: 03 DISCHARGE TO SNF Condition: Stable Trung Cortez Sep 10, 2017 13:38
[2017-09-10] MEDS ORDERED: ACETAMINOPHEN 325 MG TAB PO ONE (13:45)
--- NOTE | 2017-09-10 14:43 | RADRPT ---
EXAM DATE/TIME: 09/10/2017 14:07 [facility] COMPARISON: CHEST SINGLE AP, July 18, 2017, 15:23. INDICATIONS : Rib pain. Fall. MEDICAL HISTORY : Hypertension. SURGICAL HISTORY : None. ENCOUNTER: Initial ACUITY: 1 day PAIN SCORE: 0/10 LOCATION: Bilateral chest FINDINGS: A single view of the chest demonstrates hypoinflation with left basilar consolidation/atelectasis. Ri ght lung is grossly clear. Accounting for low lung volumes, heart size is normal. Osseous structures are grossly intact with some degenerative spurring of the dorsal spine. CONCLUSION: 1. Hypoinflation with left basilar consolidation/effusion. 2. Accounting for low lung findings, heart size is normal. 3. Degenerative spurring of the dorsal spine. No fracture. Devang Singer MD on September 10, 2017 at 14:40 Board Certified Radiologist. This report was verified electronically.
--- NOTE | 2017-09-10 15:12 | RADRPT ---
EXAM DATE/TIME: 09/10/2017 14:15 [facility] COMPARISON: No previous studies available for comparison. INDICATIONS : Pain. Fall. MEDICAL HISTORY : Hypertension. SURGICAL HISTORY : None. ENCOUNTER: Initial ACUITY: 1 day PAIN SCORE: 4/10 LOCATION: Cervical spine. FINDINGS: Two projection examination was performed. There is straightening of the normal lordotic curvature. Br idging anterior osteophytes from C3 inferiorly suggest DISH. Multilevel facet hypertrophy. No obvious fracture. Dens is intact and the lateral masses are symmetric. CONCLUSION: Multilevel degenerative disc disease as above. No fracture. Devang Singer MD on September 10, 2017 at 15:09 Board Certified Radiologist. This report was verified electronically.
--- NOTE | 2017-09-10 15:13 | RADRPT ---
EXAM DATE/TIME: 09/10/2017 14:17 [facility] COMPARISON: No previous studies available for comparison. INDICATIONS : Pain. Fall. MEDICAL HISTORY : Hypertension. SURGICAL HISTORY : None. ENCOUNTER: Initial ACUITY: 1 day PAIN SCORE: 4/10 LOCATION: Thoracic Spine. FINDINGS: Mild dextroscoliosis of the dorsal spine. Bridging anterior osteophytes suggest DISH. Vertebral body heights are maintained without fracture or listhesis. CONCLUSION: 1. 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 2. No fracture Devang Singer MD on September 10, 2017 at 15:10 Board Certified Radiologist. This report was verified electronically.
--- NOTE | 2017-09-10 15:14 | RADRPT ---
EXAM DATE/TIME: 09/10/2017 14:18 [facility] COMPARISON: No previous studies available for comparison. INDICATIONS : Pain. Fall. MEDICAL HISTORY : Hypertension. SURGICAL HISTORY : None. ENCOUNTER: Initial ACUITY: 1 day PAIN SCORE: 4/10 LOCATION: Lumbar Spine. FINDINGS: Two view examination was performed. There are five non-rib bearing vertebral bodies. Bridging anteri or and lateral osteophytes characteristic of DISH. Vertebral body heights are maintained without frac ture or listhesis CONCLUSION: Degenerative changes with no fracture. Devang Singer MD on September 10, 2017 at 15:11 Board Certified Radiologist. This report was verified electronically.
== END 2017-09-10 15:52 ==
LOC: NEPD 13:14
DX: M54.2 Cervicalgia (principal); M54.6 Pain in thoracic spine; F03.90 Unspecified dementia, unspecified severity, without behavioral disturbance, psychotic disturbance, mood disturbance, and anxiety; I10 Essential (primary) hypertension; E78.00 Pure hypercholesterolemia, unspecified; F20.9 Schizophrenia, unspecified; Z87.438 Personal history of other diseases of male genital organs; W06.XXXA Fall from bed, initial encounter; Y92.122 Bedroom in nursing home as the place of occurrence of the external cause
CPT/HCPCS: 71045; 72040; 72072; 72100; 99284

== ENCOUNTER 2017-09-19 15:34 | Emergency (ER) | payer MEDICARE, OTHER ==
[~2017-09-19] VITALS: Ht 165.1 cm; Wt 90.0 kg
--- NOTE | 2017-09-19 16:00 | PD ---
HPI Chief Complaint: Back pain Time Seen by Provider: 15:47 Travel History International Travel<30 days: No Contact w/Intl Traveler<30days: No History of Present Illness HPI Patient comes to the emergency department from [facility] complaining of low back pain ongoing since falling out of his bed approximately a week ago. Patient denies being evaluated for this, however reviewing patient's record patient was seen here 9 days ago and had x-rays done at that time. Is also noted in previous note the patient has a reported history of dementia thus making him a poor historian. Patient describes pain as a achiness in his low back without radiation. Pain improves with rest and is worse when he tries to get up and walk around. Denies any chest pain, shortness of breath, abdominal pain, change in bowel or bladder, fevers, or history of IV drug use. Denies any other known trauma. Reports history of bowel and bladder incontinence that is unchanged, which he wears adult diapers for this. Denies doing anything for this. Severity mild. PFSH Past Medical History Hx Anticoagulant Therapy: No Cardiovascular Problems: Yes (HTN) High Cholesterol: Yes Diabetes: No Diminished Hearing: No Genitourinary: Yes (BPH) Hypertension: Yes Schizophrenia: Yes Past Surgical History Tonsillectomy: Yes Other Surgery: Yes (TONSILS) Social History Alcohol Use: No Tobacco Use: No Substance Use: No Allergies-Medications (Allergen,Severity, Reaction): Coded Allergies: No Known Allergies (Unverified Allergy, Unknown, 09/19/17) Reported Meds & Prescriptions Reported Meds & Active Scripts Active Arthrotec 50 (Diclofenac-Misoprostol) 50-0.2 Mg Tab 1 Tab PO BID Xalatan Opth Drops (Latanoprost) 0.005% Drops 1 Drop LEFT EYE HS Reported Pred Forte Opth 1% (Prednisolone Acetate Opth 1%) 1% Susp 1 Drop LEFT EYE QID Tylenol Extra Strength (Acetaminophen) 500 Mg Tablet 500 Mg PO Q4-6H PRN Acetazolamide 250 Mg Tab 500 Mg PO BID Brimonidine Opth Drops (Brimonidine Tartrate) 0.2% Soln 1 Drop LEFT EYE TID Timoptic Opth Drops (Timolol Opth Drops) 0.5 % Soln 1 Drop LEFT EYE Q12HR Levocetirizine 5 Mg Tab 5 Mg PO DAILY Colace (Docusate Sodium) 100 Mg Capsule 100 Mg PO HS Risperidone 1 Mg Tab 1 Mg PO HS Lisinopril 10 Mg Tab 10 Mg PO DAILY Review of Systems ROS Limitations: Poor Historian Except as stated in HPI: all other systems reviewed are Neg Physical Exam Exam Limitations: Poor Historian Narrative GENERAL: Well-developed, overly nourished, in no acute distress, and non-ill appearing. SKIN: Focused skin assessment warm and dry. HEAD: Atraumatic. Normocephalic. EYES: Pupils equal and round. EOMI. No scleral icterus. No injection or drainage. ENT: No nasal bleeding or discharge. Mucous membranes pink and moist. NECK: Trachea midline. Supple. No nuclear rigidity. CARDIOVASCULAR: Dorsal pulses 2+, intact, and equal bilaterally. Capillary refill less than 2 seconds. RESPIRATORY: No accessory muscle use. No respiratory distress. GASTROINTESTINAL: Abdomen soft, non-tender, nondistended, and no guarding. Hepatic and splenic margins not palpable. No pulsatile mass. MUSCULOSKELETAL: No obvious deformities. No clubbing. No cyanosis. Trace edema bilateral feet. Full range of motion. Patient reports tenderness palpation over lumbar spine without crepitus. No tenderness or crepitus over thoracic spine. Straight leg test negative bilaterally. Strength 5 out of 5 and equal bilaterally with plantar and dorsiflexion. Sensation intact over first webspace in bilateral lower extremities. NEUROLOGICAL: Awake and alert. No obvious cranial nerve deficits. Motor grossly within normal limits. Normal speech. PSYCHIATRIC: Appropriate mood and affect; insight and judgment normal. Data Data Last Documented VS Vital Signs Date Time Temp Pulse Resp B/P (MAP) Pulse Ox O2 Delivery O2 Flow Rate FiO2 09/19/17 19:52 09/19/17 18:25 96 16 97 Room Air 09/19/17 16:[address] Lumb Spine W/O Contrast (09/19/17 ) Ed Discharge Order (09/19/17 17:59) MDM Medical Decision Making Medical Screen Exam Complete: Yes Emergency Medical Condition: Yes Medical Record Reviewed: Yes Interpretation(s) Last Impressions Lumbar Spine CT 09/19/17 0000 Signed Impressions: Service Date/Time: Tuesday, September 19, 2017 16:44 - CONCLUSION: Multilevel discogenic degenerative changes with bridging paravertebral ossification, neural foraminal stenosis, and mild epidural impressions as described for each level above. Patel Vera MD Differential Diagnosis Fracture, strain, contusion, herniated disc, degenerative disc disease Narrative Course The patient presented complaining of back pain. There was history of preceding trauma. Evaluation included a CT scan and no obvious fracture or acute disease was noted at this time. The patients evaluation was consistent with soft tissue injury and not consistent with bony injury. The patients neurological exam is normal with normal motor and sensory. There is no saddle paresthesias reported and no new bowel or bladder incontinence or retention. Clinical suspicion, plan of care and management was discussed with the patient. The patient was instructed to follow up with their health care provider. The patient was also instructed to return if the pain worsened, changed, or developed weakness or change in bowel or bladder. The patient agreed with plan. There was no evidence to support genitourinary etiology as well. There is also no evidence to suggest vascular pathology such as AAA dissection. No fevers or other evidence to suspect infectious processes, abscess etc. Patient in no obvious distress upon re-evaluation. All pertinent Radiology result(s) discussed with patient. Patient was asked if they wanted to speak to my attending, which the patient did not wish to do at this time. Discussed patient with Dr. Keating prior discharge who reviewed patient's CT recommend starting the patient on Arthrotec 50 mg twice daily. Any questions/concerns in reference to patient diagnosis/condition discussed and clarified prior to patient's discharge. Reinforced sheer importance of close follow up with patient 's primary physician or primary care clinic. Instructed patient to return to ED immediately, if symptoms return/worsen. Patient showed understanding of above instructions. Further instructions and recommendations were detailed in discharge paperwork. Patient left without difficulty out of ED at discharge. Diagnosis Primary Impression: Low back pain Qualified Codes: M54.5 - Low back pain Patient Instructions: Acute Low Back Pain (ED), General Instructions Additional Instructions: Follow-up with your primary care physician this week for reevaluation. Take all medication as prescribed. Return to the emergency department if symptoms get worse. Med/Other Pt SpecificInfo: Prescription(s) given Scripts Diclofenac-Misoprostol (Arthrotec 50) 50-0.2 Mg Tab 1 TAB PO BID for Pain Management, #10 TAB 0 Refills Prov: Yuval Keating MD 09/19/17 Disposition: 01 DISCHARGE HOME Condition: Stable (Back to [facility].) Livan Velasquez Sep 19, 2017 16:00
[2017-09-19 16:10] VITALS: BP 140/67; PULSE 91; RESP 18; TEMP 97.9; O2SAT 98
[2017-09-19] MEDS ORDERED: PRED1SUS LEFT EYE (16:20)
--- NOTE | 2017-09-19 17:54 | RADRPT ---
EXAM DATE/TIME: 09/19/2017 16:44 [facility] COMPARISON: No previous studies available for comparison. INDICATIONS : Low back pain. Fall one week ago. RADIATION DOSE: 35.86 CTDIvol (mGy) MEDICAL HISTORY : Dementia. Hypertension. Schizophrenia SURGICAL HISTORY : None. ENCOUNTER: Initial ACUITY: 1 week PAIN SCALE: 9/10 LOCATION: low back TECHNIQUE: Volumetric scanning of the lumbar spine was performed. Multiplanar reconstructions in the sagittal, coronal and oblique axial planes were performed. Using automated exposure control and adjustment of the mA and/or kV according to patient size, radiation dose was kept as low as reasonably achievable t o obtain optimal diagnostic quality images. DICOM format image data is available electronically for review and comparison. FINDINGS: Vertebral body height is maintained and there is normal alignment of the vertebral bodies of the lumb ar spine. Bridging anterior paravertebral ossification is present both anteriorly and laterally from L1-L5. There is partial fusion across the L5-S1 interspace. Diffuse hypertrophic changes in the fa cet joints. T12-L1: The thecal sac has a normal diameter. No evidence of disc bulge or protrusion. The neural foramina are patent bilaterally. L1-L2: The thecal sac has a normal diameter. No evidence of disc bulge or protrusion. The neural foramina are patent bilaterally. L2-L3: Broad-based bulging of the disc and endplate hypertrophy cause bilateral neural foraminal stenosis. L3-L4: Broad-based bulging of the disc flattens the ventral margin of the thecal sac. Asymmetric endplate h ypertrophy on the right side causes moderate bony neural foraminal stenosis. L4-L5: Broad ridge of osteophytes flattens the ventral margin thecal sac and causes bilateral bony neural fo raminal stenosis. L5-S1: Central bulge or protrusion of the disc is contained within the epidural fat. No deformity of the th ecal sac. No lateral extension. Moderate bilateral bony neural foraminal stenosis. CONCLUSION: Multilevel discogenic degenerative changes with bridging paravertebral ossification, neural foraminal stenosis, and mild epidural impressions as described for each level above. Patel Vera MD on September 19, 2017 at 17:48 Board Certified Radiologist. This report was verified electronically.
[2017-09-19] MEDS ORDERED: ARTHTAB2 PO (17:58)
[2017-09-19 18:25] VITALS: BP 155/72; PULSE 96; RESP 16; O2SAT 97
== END 2017-09-19 19:54 | disposition home or self-care (01) ==
LOC: NEPC 15:34
DX: M54.5 Low back pain (principal); I10 Essential (primary) hypertension
CPT/HCPCS: 72131; 99283

== ENCOUNTER 2017-10-24 06:57 | Inpatient (IN) | payer MEDICARE, OTHER ==
[~2017-10-24] VITALS: Ht 152.4 cm; Wt 65.0 kg
[~2017-10-24 06:57] MED LIST changes: +ARTHTAB2 PO; +PRED1SUS LEFT EYE; -ZOFR4TAB3 SL
[2017-10-24] MEDS ORDERED: IOHEXOL 350 MG/ML 10 ML VIAL (for RAD DIAG) IVCONTRAST ONE (06:58)
[2017-10-24] MEDS ORDERED: PANTOPRAZOLE INJ 80 MG in SODIUM CHLORIDE 0.9% INJ 35 ML IV ONE (07:10)
[2017-10-24] MEDS ORDERED: SODIUM CHLOR 0.9% 1000 ML INJ 1,000 ML IV SCH (07:10)
[2017-10-24 07:14] VITALS: BP 132/70; PULSE 111; RESP 18; TEMP 98.2; O2SAT 96
[2017-10-24] MEDS ORDERED: SODIUM CHLORIDE 0.9% FLUSH 10 ML FLUSH IVF PRN (07:15)
[2017-10-24] MEDS ORDERED: ONDANSETRON ODT 4 MG TAB PO ONE (07:30)
[2017-10-24 07:39] VITALS: RESP 18; O2SAT 99
[2017-10-24 07:43] LABS: AUTOMATED NEUTROPHIL # 13.4 TH/MM3 (1.8-7.7); BASOPHIL # 0.1 TH/MM3 (0-0.2); BASOPHIL % 0.4 % (0.0-2.0); EOSINOPHIL # 0.1 TH/MM3 (0-0.4); EOSINOPHIL % 0.5 % (0.0-4.0); HEMATOCRIT 41.6 % (39.0-51.0); LYMPH % 4.5 % (9.0-44.0); LYMPHOCYTE # 0.7 TH/MM3 (1.0-4.8); MEAN CELL VOLUME 83.8 FL (80.0-100.0); MEAN CORPUSCULAR HEMOGLOBIN 28.1 PG (27.0-34.0); MEAN CORPUSCULAR HGB CONC 33.5 % (32.0-36.0); MEAN PLATELET VOLUME 7.8 FL (7.0-11.0); MONO % 5.5 % (0.0-8.0); MONOCYTE # 0.8 TH/MM3 (0-0.9); NEUT % 89.1 % (16.0-70.0); PLATELET COUNT 268 TH/MM3 (150-450); RED BLOOD COUNT 4.97 MIL/MM3 (4.50-5.90); RED CELL DISTRIBUTION WIDTH 14.5 % (11.6-17.2)
[2017-10-24 07:52] LABS: INTERNATIONAL NORMALIZED RATIO 1.1 RATIO; PROTHROMBIN TIME - PATIENT 10.9 SEC (9.8-11.6)
[2017-10-24 08:05] LABS: ALBUMIN 2.9 GM/DL (3.4-5.0); ALT (GPT) 28 U/L (12-78); AST (GOT) 20 U/L (15-37); BLOOD UREA NITROGEN 15 MG/DL (7-18); CALCIUM 8.2 MG/DL (8.5-10.1); CHLORIDE 104 MEQ/L (98-107); CREATININE 1.11 MG/DL (0.60-1.30); GLOMERULAR FILTRATION RATE 64 ML/MIN (>89); GLUCOSE,RANDOM 137 MG/DL (74-106); SODIUM (NA) 137 MEQ/L (136-145)
[2017-10-24 08:07] VITALS: BP 129/64; PULSE 105; RESP 18; O2SAT 98
[2017-10-24 08:07] LABS: ALKALINE PHOSPHATASE 84 U/L (45-117); TOTAL BILIRUBIN ADULT 0.6 MG/DL (0.2-1.0); TOTAL PROTEIN 6.2 GM/DL (6.4-8.2)
[2017-10-24] MEDS: PANTOPRAZOLE INJ 80 MG in SODIUM CHLORIDE 0.9% INJ 100 ML IV SCH ×2 (08:11→18:15)
[2017-10-24 08:18] LABS: LYMPHOCYTES 5 % (9-44); METAMYELOCYTES 1 % (0-1); MONOCYTES 9 % (0-8); NEUTROPHIL # MANUAL DIFF 12.9 TH/MM3 (1.8-7.7); POLYS (SEG NEUTROPHILS) 85 % (16-70)
[2017-10-24 08:19] LABS: OVALOCYTES 1+ (NORMAL)
[2017-10-24 08:20] LABS: BURR CELLS 1+ (NORMAL)
[2017-10-24 08:21] LABS: BILIRUBIN, URINE NEG (NEG); BLOOD, URINE NEG (NEG); GLUCOSE,URINE NEG (NEG); KETONE, URINE TRACE mg/dL (NEG); MUCUS URINE FEW /lpf (OCC); NITRITE,URINE NEG (NEG); URINE COLOR YELLOW (YELLW/STRAW); URINE LEUKOCYTE ESTERASE NEG (NEG)
--- NOTE | 2017-10-24 08:36 | PD ---
HPI Chief Complaint: Fall Time Seen by Provider: 07:10 Travel History International Travel<30 days: No Contact w/Intl Traveler<30days: No Traveled to known affect area: No History of Present Illness HPI Patient is a 77 year old male who comes in complaining of weakness and a fall today. Per EMS, he has been weak for several days and today he was assisted to the ground. He says he has been vomiting for 2.5 days. He denies any abdominal pain. He denies dark stools. He denies headache, dizziness, chest pain or SOB. Nothing seems to make his symptoms better or worse. Severity is mild to moderate. PFSH Past Medical History Hx Anticoagulant Therapy: No Cardiovascular Problems: Yes (HTN) High Cholesterol: Yes Diabetes: No Diminished Hearing: No Genitourinary: Yes (BPH) Hypertension: Yes Schizophrenia: Yes ?: Not Past Surgical History Tonsillectomy: Yes Other Surgery: Yes (TONSILS) Social History Alcohol Use: No Tobacco Use: No Substance Use: No Allergies-Medications (Allergen,Severity, Reaction): Coded Allergies: No Known Allergies (Unverified Allergy, Unknown, 10/25/17) Reported Meds & Prescriptions Reported Meds & Active Scripts Active Reported Acetazolamide 250 Mg Tab 500 Mg PO BID Levocetirizine 5 Mg Tab 5 Mg PO DAILY Colace (Docusate Sodium) 100 Mg Capsule 100 Mg PO HS Risperidone 1 Mg Tab 1 Mg PO HS Lisinopril 10 Mg Tab 10 Mg PO DAILY Review of Systems Except as stated in HPI: all other systems reviewed are Neg General / Constitutional: No: Fever, Chills HENT: No: Headaches, Lightheadedness Cardiovascular: No: Chest Pain or Discomfort Respiratory: No: Shortness of Breath Gastrointestinal: Positive: Nausea, Vomiting, No: Abdominal Pain Musculoskeletal: No: Myalgias, Edema Skin: No Rash, No Change in Pigmentation Neurologic: No: Weakness, Dizziness Physical Exam Narrative GENERAL: Awake and alert, in no acute distress. SKIN: Focused skin assessment warm/dry. HEAD: Atraumatic. Normocephalic. EYES: Pupils equal and round. No scleral icterus. ENT: Mucous membranes pink and moist. NECK: Trachea midline. No JVD. CARDIOVASCULAR: Regular rate and rhythm. No murmur appreciated. RESPIRATORY: No accessory muscle use. Clear to auscultation. Breath sounds equal bilaterally. GASTROINTESTINAL: Abdomen soft, non-tender, nondistended. RECTAL: Brown stool, positive for occult blood. MUSCULOSKELETAL: No obvious deformities. No clubbing. No cyanosis. No edema. NEUROLOGICAL: Awake and alert. No obvious cranial nerve deficits. Motor grossly within normal limits. Normal speech. PSYCHIATRIC: Appropriate mood and affect; insight and judgment normal. Data Data Last Documented VS Vital Signs Date Time Temp Pulse Resp B/P (MAP) Pulse Ox O2 Delivery O2 Flow Rate FiO2 10/24/17 08:07 105 18 129/64 (85) 98 Room Air 10/24/17 07:14 98.2 Orders Orders Complete Blood Count With Diff (10/24/17 07:10) Comprehensive Metabolic Panel (10/24/17 07:10) Prothrombin Time / Inr (Pt) (10/24/17 07:10) Act Partial Throm Time (Ptt) (10/24/17 07:10) Urinalysis - C+S If Indicated (10/24/17 07:10) Type And Screen (10/24/17 07:10) Chest, Single Ap (10/24/17 07:10) Ecg Monitoring (10/24/17 07:10) Iv Access Insert/Monitor (10/24/17 07:10) Oximetry (10/24/17 07:10) Sodium Chlor 0.9% 1000 Ml Inj (Ns 1000 M (10/24/17 07:10) Sodium Chloride 0.9% Flush (Ns Flush) (10/24/17 07:15) Sodium Chloride 0.9... W/Pantoprazole In (10/24/17 07:10) Sodium Chloride 0.9... W/Pantoprazole In (10/24/17 07:10) Ct Abd/Pel W Iv Contrast(Rout) (10/24/17 ) Ondansetron Odt (Zofran Odt) (10/24/17 07:30) Ct Brain W/O Iv Contrast(Rout) (10/24/17 ) Ct Cerv Spine W/O Contrast (10/24/17 ) Ceftriaxone Inj (Rocephin Inj) (10/24/17 09:30) Azithromycin Inj (Zithromax Inj) (10/24/17 09:30) Iohexol 350 Inj (Omnipaque 350 Inj) (10/24/17 06:58) Admit Order (Ed Use Only) (10/24/17 ) Labs Laboratory Tests Test 10/24/17 07:31 White Blood Count 15.0 TH/MM3 Red Blood Count 4.97 MIL/MM3 Hemoglobin 14.0 GM/DL Hematocrit 41.6 % Mean Corpuscular Volume 83.8 FL Mean Corpuscular Hemoglobin 28.1 PG Mean Corpuscular Hemoglobin Concent 33.5 % Red Cell Distribution Width 14.5 % Platelet Count 268 TH/MM3 Mean Platelet Volume 7.8 FL Neutrophils (%) (Auto) 89.1 % Lymphocytes (%) (Auto) 4.5 % Monocytes (%) (Auto) 5.5 % Eosinophils (%) (Auto) 0.5 % Basophils (%) (Auto) 0.4 % Neutrophils # (Auto) 13.4 TH/MM3 Lymphocytes # (Auto) 0.7 TH/MM3 Monocytes # (Auto) 0.8 TH/MM3 Eosinophils # (Auto) 0.1 TH/MM3 Basophils # (Auto) 0.1 TH/MM3 CBC Comment AUTO DIFF Differential Total Cells Counted 100 Neutrophils % (Manual) 85 % Lymphocytes % 5 % Monocytes % 9 % Neutrophils # (Manual) 12.9 TH/MM3 Metamyelocytes 1 % Differential Comment FINAL DIFF MANUAL Platelet Estimate NORMAL Platelet Morphology Comment NORMAL Ovalocytes 1+ Chano Cells 1+ Prothrombin Time 10.9 SEC Prothromb Time International Ratio 1.1 RATIO Activated Partial Thromboplast Time 24.5 SEC Urine Color YELLOW Urine Turbidity CLEAR Urine pH 7.0 Urine Specific [place] 1.010 Urine Protein NEG mg/dL Urine Glucose (UA) NEG mg/dL Urine Ketones TRACE mg/dL Urine Occult Blood NEG Urine Nitrite NEG Urine Bilirubin NEG Urine Urobilinogen 2.0 MG/DL Urine Leukocyte Esterase NEG Urine RBC 1 /hpf Urine WBC LESS THAN 1 /hpf Urine Mucus FEW /lpf Microscopic Urinalysis Comment CULT NOT INDICATED Blood Urea Nitrogen 15 MG/DL Creatinine 1.11 MG/DL Random Glucose 137 MG/DL Total Protein 6.2 GM/DL Albumin 2.9 GM/DL Calcium Level 8.2 MG/DL Alkaline Phosphatase 84 U/L Aspartate Amino Transf (AST/SGOT) 20 U/L Alanine Aminotransferase (ALT/SGPT) 28 U/L Total Bilirubin 0.6 MG/DL Sodium Level 137 MEQ/L Potassium Level 3.7 MEQ/L Chloride Level 104 MEQ/L Carbon Dioxide Level 20.0 MEQ/L Anion Gap 13 MEQ/L Estimat Glomerular Filtration Rate 64 ML/MIN [facility] Medical Decision Making Medical Screen Exam Complete: Yes Emergency Medical Condition: Yes Medical Record Reviewed: Yes Differential Diagnosis GI bleed vs head injury vs electrolyte abnormalities vs dehydration Narrative Course Patient is a 77 year old male who comes in from his facility after a fall. He has been noted to have vomiting of coffee ground emesis and increased weakness lately. Stool is positive for blood. IV established, labs sent. Labs show a Hgb of 14. CXR concerning for airspace disease. CT head and C spine performed show no acute abnormalities. Last 24 hours Impressions Chest X-Ray 10/24/17 0710 Signed Impressions: CONCLUSION: 1. No free air is identified, as questioned. 2. Left basilar opacity representing either atelectasis or airspace consolidat ion. Head CT 10/24/17 0000 Signed Impressions: CONCLUSION: 1. No acute intracranial abnormality. 2. Atrophy and chronic small vessel ischemic change. Cervical Spine CT 10/24/17 0000 Signed Impressions: CONCLUSION: 1. Severe multilevel degenerative disc disease with marked loss of disc height and bridging anterior osteophytes from C3-4 inferiorly. 2. Despite the uncovertebral ridging, most severe at C5-6 and C6-7, believe th e spinal canal is adequate throughout without cord compromise. 3. Minimal grade 1 anterolisthesis of C4 on 5 with a minimal grade 1 retrolist hesis of C3 on 4 probably due to facet degeneration. No acute fracture. 4. Foraminal narrowing which may be severe enough to compromise the right C4 n erve root. Abdomen/Pelvis CT 10/24/17 0000 Signed Impressions: CONCLUSION: 1. I do not see an etiology for the patient's bloody stools, nausea and vomiti ng. No bowel obstruction. 2. However, the prostate is enlarged with heterogeneous enhancement and a very prominent anterior lobe. This does cause some apparent bladder outlet obstruct ion with distention of the urinary bladder. I would correlate findings with ser um PSA. 3. Tiny right with a small left pleural effusion. 4. Small hiatal hernia. Patient started on protonix. Given antibiotics for possible pneumonia. Admitted for further management. [facility] Point of Care Internal Pos. & Neg. Controls: Passed Fecal Specimen Occult Blood: Positive Diagnosis Primary Impression: Heme positive stool Additional Impression: HCAP (healthcare-associated pneumonia) Admitting Information Admitting Physician Requests: Admit Maryann Castro MD Oct 24, 2017 08:36
--- NOTE | 2017-10-24 08:59 | RADRPT ---
EXAM DATE: 10/24/2017 8:14 AM EDT AGE/SEX: 77 years / Male INDICATIONS: Free Air. CLINICAL DATA: This is the patient's initial encounter. Patient reports that signs and symptoms have been present for 3 days and indicates a pain score of 0/10. MEDICAL/SURGICAL HISTORY: Hypertension. . COMPARISON: [facility] [place], CHEST SINGLE AP, 09/10/2017. . FINDINGS: Portable AP view of the chest demonstrates a normal size cardiac silhouette. Multiple EKG lines overl ie the patient. There is opacity in the left base in the retrocardiac region sparing the medial left hemidiaphragm. No pleural effusion or pneumothorax is identified. Lungs and soft tissues demonstrate no acute finding. There is no free air beneath the hemidiaphragms. CONCLUSION: 1. No free air is identified, as questioned. 2. Left basilar opacity representing either atelectasis or airspace consolidation. Electronically signed by: Yeyo Wylie MD 10/24/2017 8:57 AM EDT
--- NOTE | 2017-10-24 09:04 | RADRPT ---
EXAM DATE: 10/24/2017 8:59 AM EDT AGE/SEX: 77 years / Male INDICATIONS: Assisted fall. No obvious injuries. CLINICAL DATA: This is the patient's initial encounter. Patient reports that signs and symptoms have been present for 1 day and indicates a pain score of 0/10. MEDICAL/SURGICAL HISTORY: Cardiovascular disease. Hypertension. Tonsillectomy. RADIATION DOSE: 46.52 CTDI (mGy) COMPARISON: [facility] [place], CT BRAIN W/O CONTRAST, 07/18/2017. . TECHNIQUE: CT of the head without contrast. Using automated exposure control and adjustment of the mA and/or kV according to patient size, radiation dose was kept as low as reasonably achievable to ob tain optimal diagnostic quality images. FINDINGS: Cerebrum: Atrophy. Extensive periventricular low attenuation change involving both cerebral hemisphe res. Appearance is stable from the prior study. The ventricles are normal for age. No evidence of mi dline shift, mass lesion, hemorrhage or acute infarction. No extraaxial fluid collections are seen. Posterior Fossa: The cerebellum and brainstem are intact. The 4th ventricle is midline. The cerebe llopontine angle is unremarkable. Extracranial: The visualized portion of the orbits is intact. Skull: The calvaria is intact. No evidence of skull fracture. CONCLUSION: 1. No acute intracranial abnormality. 2. Atrophy and chronic small vessel ischemic change. Electronically signed by: Patel Lopez MD 10/24/2017 9:02 AM EDT
[2017-10-24] MEDS ORDERED: AZITHROMYCIN INJ 500 MG in SODIUM CHLOR 0.9% 250 ML INJ 250 ML IV ONE (09:30)
[2017-10-24] MEDS ORDERED: cefTRIAXone INJ 1,000 MG in SODIUM CHLORIDE 0.9% INJ 100 ML IV ONE (09:30)
--- NOTE | 2017-10-24 09:35 | RADRPT ---
EXAM DATE: 10/24/2017 9:18 AM EDT AGE/SEX: 77 years / Male INDICATIONS: Nausea and vomiting. Blood in stool. CLINICAL DATA: This is the patient's initial encounter. Patient reports that signs and symptoms have been present for 1 day and indicates a pain score of 0/10. MEDICAL/SURGICAL HISTORY: Hypertension. Cardiovascular disease. Tonsillectomy. ORAL CONTRAST: No oral contrast ingested. RADIATION DOSE: 7.48 CTDI (mGy) COMPARISON: No prior [place] exams available for comparison. TECHNIQUE: Multiple contiguous axial images were obtained through the abdomen and pelvis following b olus infusion of 94 ml Omnipaque 350 (iohexol) nonionic water-soluble contrast as a single exam dos e. No oral contrast ingested. Using automated exposure control and adjustment of the mA and/or kV ac cording to patient size, the radiation dose was kept as low as reasonably achievable to obtain optima l diagnostic quality images. FINDINGS: Lower Lungs: Small bilateral pleural effusions, left greater than right. Small hiatal hernia Liver: The liver has a homogeneous density without space-occupying lesion. There is no dilation of th e biliary tree. Spleen: Homogeneous density without enlargement. Pancreas: Unremarkable without mass or calcification. Kidneys: Normal in size and shape. No evidence of mass or hydronephrosis. Benign-appearing 3.[address] at the junction of the upper and midpole anterolateral cortex of the right kidney.. Adrenal Glands: Unremarkable. Aorta: The aorta and proximal iliac vessels are grossly unremarkable without aneurysmal dilation. Bowel/Mesentery: The bowel loops are grossly unremarkable. The cecum and sigmoid colon have a normal configuration. Abdominal Wall: Intact. Retroperitoneum: No evidence of adenopathy in the retrocrural, para-aortic, or deep pelvic regions. Bladder: Distended with urine. Reproductive Organs: Prostate is prominent measuring 5.6 cm in diameter with heterogeneous enhanceme nt. Significant prominence and enhancement of the anterior lobe which impinges on the posterior aspec t of the urinary bladder. Inguinal: The inguinal region is unremarkable without evidence of adenopathy. Bony Structures: Unremarkable. Post Contrast: No abnormal areas of enhancement seen. CONCLUSION: 1. I do not see an etiology for the patient's bloody stools, nausea and vomiting. No bowel obstructi on. 2. However, the prostate is enlarged with heterogeneous enhancement and a very prominent anterior lo be. This does cause some apparent bladder outlet obstruction with distention of the urinary bladder. I would correlate findings with serum PSA. 3. Tiny right with a small left pleural effusion. 4. Small hiatal hernia. Electronically signed by: Devang Singer MD 10/24/2017 9:34 AM EDT
--- NOTE | 2017-10-24 09:48 | RADRPT ---
EXAM DATE: 10/24/2017 9:17 AM EDT AGE/SEX: 77 years / Male INDICATIONS: Assisted fall. No obvious injuries. CLINICAL DATA: This is the patient's initial encounter. Patient reports that signs and symptoms have been present for 1 day and indicates a pain score of 0/10. MEDICAL/SURGICAL HISTORY: Hypertension. Cardiovascular disease. Tonsillectomy. RADIATION DOSE: 18.45 CTDI (mGy) COMPARISON: No prior [place] exams available for comparison. TECHNIQUE: Contiguous axial images were obtained using helical multirow detector technique. The vol umetric data was post-processed with multiplanar reconstruction in oblique axial, sagittal, and coron al planes. Using automated exposure control and adjustment of the mA and/or kV according to patient s ize, radiation dose was kept as low as reasonably achievable to obtain optimal diagnostic quality uvaldo ges. FINDINGS: Sagittal coronal reconstruction show multilevel degenerative disc disease with bridging anterior oste ophytes from C3-4 inferiorly. Minimal grade 1 retrolisthesis of C3 on 4 with a minimal grade 1 [place] listhesis of C4 on 5. Vertebral body heights are maintained without fracture. Uncovertebral ridging i s identified at multiple levels, most prominent at C5-6 and C6-7. Spurring encroaches on the anterior epidural space but the spinal canal appears to be adequate. C2-3: Left facet hypertrophy. Final canal and neural foramina are adequate C3-4: Uncovertebral ridging most prominent right lateral and posterior narrows the right neural fora lynette and encroaches on the right lateral recess and probably compromises the right C4 nerve root. Spi nal canal and left neural foramina are adequate C4-5: Anteriorly directed ridging. Spinal canal and neural foramina are patent C5-6: Severe uncovertebral ridging. There is some encroachment on the right neural foramina and late ral recess but the spinal canal and neural foramina appear to be adequate C6-7: Uncovertebral ridging with encroachment on the anterior epidural space and both neural foramin a but the spinal canal and neural foramina remain patent C7-T1: Mild uncovertebral ridging. Spinal canal and neural foramina are patent CONCLUSION: 1. Severe multilevel degenerative disc disease with marked loss of disc height and bridging anterior osteophytes from C3-4 inferiorly. 2. Despite the uncovertebral ridging, most severe at C5-6 and C6-7, believe the spinal canal is adeq uate throughout without cord compromise. 3. Minimal grade 1 anterolisthesis of C4 on 5 with a minimal grade 1 retrolisthesis of C3 on 4 proba gregorio due to facet degeneration. No acute fracture. 4. Foraminal narrowing which may be severe enough to compromise the right C4 nerve root. Electronically signed by: Devang Singer MD 10/24/2017 9:46 AM EDT
[2017-10-24] MEDS ORDERED: MAGNESIUM HYDROXIDE SUSP 30 ML CUP PO PRN (10:45)
[2017-10-24] MEDS ORDERED: ACETAMINOPHEN 325 MG TAB PO PRN ×2 (10:45)
[2017-10-24] MEDS ORDERED: SODIUM CHLORIDE 0.9% FLUSH 10 ML FLUSH IV FLUSH PRN (10:45)
[2017-10-24] MEDS ORDERED: NALOXONE HCL 0.4 MG/ML AMP IV PUSH PRN (10:45)
[2017-10-24] MEDS ORDERED: RESP: ALBUTEROL 2.5 MG/IPRATROPIUM 0.5 MG NEB (PRN) NEB (10:45)
--- NOTE | 2017-10-24 10:52 | HHI.HP ---
[facility] Physician Unknown Admission Diagnosis GI bleed, pneumonia Diagnoses: (1) Sepsis (2) HCAP (healthcare-associated pneumonia) (3) Fall (4) Heme positive stool Chief Complaint: Fall and I have been vomiting over the past 2 days Travel History International Travel<30 Days: No Contact w/Intl Traveler <30 Da: No Traveled to Known Affected Are: No Sepsis Criteria SIRS Criteria (2 or more): Heart rate over 90, WBC > 23610, < 4000 or > 10% bands Sepsis Criteria (SIRS+source): Infect source susp/known History of Present Illness 77-year-old male with a past medical history for hypertension, hyperlipidemia was brought from a local SNF for evaluation of an episode of fall and weakness. Apparently patient was found on the ground and state he has tripped over himself landing the floor without loss of consciousness or trauma to his head. Patient also reported 2 day history of vomiting denies any hematemesis. He reports occasional episode of nonproductive cough however denies any febrile episode. Hemoccult test was positive in the ED but patient any gross visible blood in his stool, or dark stool. On admission, vitals stable, patient has elevated WBC with a normal H&H. Review of Systems Except as stated in HPI: all other systems reviewed are Neg Past Family Social History Past Medical History Hypertension Hyperlipidemia Schizophrenia Past Surgical History Tonsillectomy Reported Medications Acetazolamide 250 Mg Tab 500 Mg PO BID Levocetirizine 5 Mg Tab 5 Mg PO DAILY Colace (Docusate Sodium) 100 Mg Capsule 100 Mg PO HS Risperidone 1 Mg Tab 1 Mg PO HS Lisinopril 10 Mg Tab 10 Mg PO DAILY Allergies: Coded Allergies: No Known Allergies (Unverified Allergy, Unknown, 09/19/17) Family History Denies any family history of CAD, hypertension, cancer Social History Alcohol Use: No Tobacco Use: No Substance Use: No Physical Exam Vital Signs Vital Signs Date Time Temp Pulse Resp B/P (MAP) Pulse Ox O2 Delivery O2 Flow Rate FiO2 10/24/17 08:07 105 18 129/64 (85) 98 Room Air 10/24/17 07:48 111 18 99 Room Air 10/24/17 07:39 18 99 Room Air 10/24/17 07:14 98.2 111 18 132/70 (90) 96 Room Air Physical Exam GENERAL: This is a well-nourished, well-developed patient, in no apparent distress. SKIN: No rashes, ecchymoses or lesions. Cool and dry. HEAD: Atraumatic. Normocephalic. No temporal or scalp tenderness. EYES: Pupils equal round and reactive. Extraocular motions intact. No scleral icterus. No injection or drainage. ENT: Nose without bleeding, purulent drainage or septal hematoma. Throat without erythema, tonsillar hypertrophy or exudate. Uvula midline. Airway patent. NECK: Trachea midline. No JVD or lymphadenopathy. Supple, nontender, no meningeal signs. CARDIOVASCULAR: Regular rate and rhythm without murmurs, gallops, or rubs. RESPIRATORY: Clear to auscultation. Breath sounds equal bilaterally. No wheezes , rales, or rhonchi. GASTROINTESTINAL: Abdomen soft, non-tender, nondistended. No hepato-splenomegaly , or palpable masses. No guarding. MUSCULOSKELETAL: Extremities without clubbing, cyanosis, or edema. No joint tenderness, effusion, or edema noted. No calf tenderness. Negative Homans sign bilaterally. NEUROLOGICAL: Awake and alert. Cranial nerves II through XII intact. Motor and sensory grossly within normal limits. Five out of 5 muscle strength in all muscle groups. Normal speech. Laboratory Laboratory Tests Test 10/24/17 07:31 White Blood Count 15.0 Red Blood Count 4.97 Hemoglobin 14.0 Hematocrit 41.6 Mean Corpuscular Volume 83.8 Mean Corpuscular Hemoglobin 28.1 Mean Corpuscular Hemoglobin Concent 33.5 Red Cell Distribution Width 14.5 Platelet Count 268 Mean Platelet Volume 7.8 Neutrophils (%) (Auto) 89.1 Lymphocytes (%) (Auto) 4.5 Monocytes (%) (Auto) 5.5 Eosinophils (%) (Auto) 0.5 Basophils (%) (Auto) 0.4 Neutrophils # (Auto) 13.4 Lymphocytes # (Auto) 0.7 Monocytes # (Auto) 0.8 Eosinophils # (Auto) 0.1 Basophils # (Auto) 0.1 CBC Comment AUTO DIFF Differential Total Cells Counted 100 Neutrophils % (Manual) 85 Lymphocytes % 5 Monocytes % 9 Neutrophils # (Manual) 12.9 Metamyelocytes 1 Differential Comment FINAL DIFF MANUAL Platelet Estimate NORMAL Platelet Morphology Comment NORMAL Ovalocytes 1+ Chano Cells 1+ Prothrombin Time 10.9 Prothromb Time International Ratio 1.1 Activated Partial Thromboplast Time 24.5 Urine Color YELLOW Urine Turbidity CLEAR Urine pH 7.0 Urine Specific [place] 1.010 Urine Protein NEG Urine Glucose (UA) NEG Urine Ketones TRACE Urine Occult Blood NEG Urine Nitrite NEG Urine Bilirubin NEG Urine Urobilinogen 2.0 Urine Leukocyte Esterase NEG Urine RBC 1 Urine WBC LESS THAN 1 Urine Mucus FEW Microscopic Urinalysis Comment CULT NOT INDICATED Blood Urea Nitrogen 15 Creatinine 1.11 Random Glucose 137 Total Protein 6.2 Albumin 2.9 Calcium Level 8.2 Alkaline Phosphatase 84 Aspartate Amino Transf (AST/SGOT) 20 Alanine Aminotransferase (ALT/SGPT) 28 Total Bilirubin 0.6 Sodium Level 137 Potassium Level 3.7 Chloride Level 104 Carbon Dioxide Level 20.0 Anion Gap 13 Estimat Glomerular Filtration Rate 64 Result Diagram: 10/24/17 0731 10/24/17 0731 Imaging Last Impressions Chest X-Ray 10/24/17 0710 Signed Impressions: CONCLUSION: 1. No free air is identified, as questioned. 2. Left basilar opacity representing either atelectasis or airspace consolidat ion. Head CT 10/24/17 0000 Signed Impressions: CONCLUSION: 1. No acute intracranial abnormality. 2. Atrophy and chronic small vessel ischemic change. Cervical Spine CT 10/24/17 0000 Signed Impressions: CONCLUSION: 1. Severe multilevel degenerative disc disease with marked loss of disc height and bridging anterior osteophytes from C3-4 inferiorly. 2. Despite the uncovertebral ridging, most severe at C5-6 and C6-7, believe th e spinal canal is adequate throughout without cord compromise. 3. Minimal grade 1 anterolisthesis of C4 on 5 with a minimal grade 1 retrolist hesis of C3 on 4 probably due to facet degeneration. No acute fracture. 4. Foraminal narrowing which may be severe enough to compromise the right C4 n erve root. Abdomen/Pelvis CT 10/24/17 0000 Signed Impressions: CONCLUSION: 1. I do not see an etiology for the patient's bloody stools, nausea and vomiti ng. No bowel obstruction. 2. However, the prostate is enlarged with heterogeneous enhancement and a very prominent anterior lobe. This does cause some apparent bladder outlet obstruct ion with distention of the urinary bladder. I would correlate findings with ser um PSA. 3. Tiny right with a small left pleural effusion. 4. Small hiatal hernia. Septic Shock Reassessment Septic shock perfusion: reassessment completed Caprini VTE Risk Assessment Caprini VTE Risk Assessment: Mod/High Risk (score >= 2) VTE Pharm Contraindication: Positive Hemoccult test Caprini Risk Assessment Model Point Value = 1 Point Value = 2 Point Value = 3 Point Value = 5 Age 41-60 Minor surgery BMI > 25 kg/m2 Swollen legs Varicose veins or History of unexplained or recurrent spontaneous Oral contraceptives or hormone replacement Sepsis (< 1 month) Serious lung disease, including pneumonia (< 1 month) Abnormal pulmonary function Acute myocardial infarction Congestive heart failure (< 1 month) History of inflammatory bowel disease Medical patient at bed rest Age 61-74 Arthroscopic surgery Major open surgery (> 45 min) Laparoscopic surgery (> 45 min) Malignancy Confined to bed (> 72 hours) Immobilizing plaster cast Central venous access Age >= 75 History of VTE Family history of VTE Factor V Leiden Prothrombin [id number] Lupus anticoagulant Anticardiolipin antibodies Elevated serum homocysteine Heparin-induced thrombocytopenia Other congenital or acquired thrombophilia Stroke (< 1 month) Elective arthroplasty Hip, pelvis, or leg fracture Acute spinal cord injury (< 1 month) Prophylaxis Regimen Total Risk Factor Score Risk Level Prophylaxis Regimen 0-1 Low Early ambulation 2 Moderate Order ONE of the following: *Sequential Compression Device (SCD) *Heparin 5000 units SQ BID 3-4 Higher Order ONE of the following medications: *Heparin 5000 units SQ TID *Enoxaparin/Lovenox 40 mg SQ daily (WT < 150 kg, CrCl > 30 mL/min) *Enoxaparin/Lovenox 30 mg SQ daily (WT < 150 kg, CrCl > 10-29 mL/min) *Enoxaparin/Lovenox 30 mg SQ BID (WT < 150 kg, CrCl > 30 mL/min) AND/OR *Sequential Compression Device (SCD) 5 or more Highest Order ONE of the following medications: *Heparin 5000 units SQ TID (Preferred with Epidurals) *Enoxaparin/Lovenox 40 mg SQ daily (WT < 150 kg, CrCl > 30 mL/min) *Enoxaparin/Lovenox 30 mg SQ daily (WT < 150 kg, CrCl > 10-29 mL/min) *Enoxaparin/Lovenox 30 mg SQ BID (WT < 150 kg, CrCl > 30 mL/min) AND *Sequential Compression Device (SCD) Assessment and Plan Problem List: (1) Sepsis ICD Code: A41.9 - Sepsis, unspecified organism (2) HCAP (healthcare-associated pneumonia) ICD Code: J18.9 - Pneumonia, unspecified organism (3) Heme positive stool ICD Code: R19.5 - Other fecal abnormalities (4) Fall ICD Code: W19.XXXA - Unspecified fall, initial encounter Assessment and Plan 77-year-old man with Sepsis: Heart rate over 90, WBC > 01239, < 4000 or > 10% bands,Infect source susp/known(HCAP), status post Rocephin and azithromycin IV 1 in ED will continue antibiotics pending culture. UA negative. Lactic acid pending Healthcare associated pneumonia Chest x-ray noted and reviewed by me with finding of left basilar opacity Status post azithromycin and Rocephin IV 1 in ED, continue with antibiotics pending culture DuoNeb as needed, Mucinex and maintain oxygen saturation above 88% Leukocytosis May be secondary from the above Mechanical fall Head CT noted and reviewed by me without any intracranial abnormality Cervical spine CT noted and reviewed by me with finding of DJD Fall precaution, consult PT Heme positive stool H&H stable Consult GI for evaluation for possible panendoscopy Continue serial H&H monitoring PPI drip Emesis Abdominal CT noted and reviewed by me without any identifiable cause of patient emesis Treatment with antiemetic, gentle IV fluid hydration Global weakness PT consult to treat and eval Hypertension Resume outpatient medication DVT prophylaxis: Bilateral SCDs Code Status Full code Discussed Condition With ED physician, patient Physician Certification 2 Midnight Certification Type: Admission for Inpatient Services Order for Inpatient Services The services are ordered in accordance with Medicare regulations or non- Medicare payer requirements, as applicable. In the case of services not specified as inpatient-only, they are appropriately provided as inpatient services in accordance with the 2-midnight benchmark. Estimated LOS (days): 2 days is the estimated time the patient will need to remain in the hospital, assuming treatment plan goals are met and no additional complications. Post-Hospital Plan: Not yet determined Wilfred Kyle MD Oct 24, 2017 10:52
[2017-10-24 11:30] VITALS: BP 120/64; PULSE 95; RESP 18; O2SAT 98
--- NOTE | 2017-10-24 11:56 | PD.CONS ---
HPI History of Present Illness This is a 77 year old M with PMH significant for HTN, hyperlipidemia, schizophrenia who was brought to the ER by EMS this morning for evaluation of weakness with falls over the past couple days and intractable nausea and vomiting. Pt is a poor historian, history was obtained through ER provider that saw the patient and chart review. Pt does report weakness for the past couple days. Pt reports multiple episodes of emesis that began 4-5 days ago. Per ER provider there was reports of coffee ground emesis. Bedside Hemoccult stool done in the ER was positive. Per provider stool was brown, no reported hematochezia or melena. Denies any abdominal pain, acid reflux, heartburn, unintentional weight loss. Pt denies history of GIB. Has never had EGD. Last colonoscopy was approximately 4 years ago and he states normal exam. Denies ETOH , smoking, NSAID use. (Anu Scott) PFSH Past Medical History Hypertension Hyperlipidemia Schizophrenia Past Surgical History Tonsillectomy (Anu Scott) Coded Allergies: No Known Allergies (Unverified Allergy, Unknown, 09/19/17) Family History Denies any family history of CAD, hypertension, cancer Social History Alcohol Use: No Tobacco Use: No Substance Use: No (Anu Scott) Review of Systems Gastrointestinal: COMPLAINS OF: Nausea, Vomiting, Hematemesis, DENIES: Abdominal pain, Black stools, Bloody stools, Constipation, Diarrhea, Difficulty Swallowing, Odynophagia, Swelling of Abdomen, Heartburn (Anu Scott) GI Exam Vitals I&O Vital Signs Date Time Temp Pulse Resp B/P (MAP) Pulse Ox O2 Delivery O2 Flow Rate FiO2 10/24/17 11:30 95 18 120/64 (82) 98 Room Air 10/24/17 08:07 105 18 129/64 (85) 98 Room Air 10/24/17 07:48 111 18 99 Room Air 10/24/17 07:39 18 99 Room Air 10/24/17 07:14 98.2 111 18 132/70 (90) 96 Room Air Imaging Last Impressions Chest X-Ray 10/24/17 0710 Signed Impressions: CONCLUSION: 1. No free air is identified, as questioned. 2. Left basilar opacity representing either atelectasis or airspace consolidat ion. Head CT 10/24/17 0000 Signed Impressions: CONCLUSION: 1. No acute intracranial abnormality. 2. Atrophy and chronic small vessel ischemic change. Cervical Spine CT 10/24/17 0000 Signed Impressions: CONCLUSION: 1. Severe multilevel degenerative disc disease with marked loss of disc height and bridging anterior osteophytes from C3-4 inferiorly. 2. Despite the uncovertebral ridging, most severe at C5-6 and C6-7, believe th e spinal canal is adequate throughout without cord compromise. 3. Minimal grade 1 anterolisthesis of C4 on 5 with a minimal grade 1 retrolist hesis of C3 on 4 probably due to facet degeneration. No acute fracture. 4. Foraminal narrowing which may be severe enough to compromise the right C4 n erve root. Abdomen/Pelvis CT 10/24/17 0000 Signed Impressions: CONCLUSION: 1. I do not see an etiology for the patient's bloody stools, nausea and vomiti ng. No bowel obstruction. 2. However, the prostate is enlarged with heterogeneous enhancement and a very prominent anterior lobe. This does cause some apparent bladder outlet obstruct ion with distention of the urinary bladder. I would correlate findings with ser um PSA. 3. Tiny right with a small left pleural effusion. 4. Small hiatal hernia. Laboratory Test 10/24/17 07:31 White Blood Count 15.0 TH/MM3 Red Blood Count 4.97 MIL/MM3 Hemoglobin 14.0 GM/DL Hematocrit 41.6 % Mean Corpuscular Volume 83.8 FL Mean Corpuscular Hemoglobin 28.1 PG Mean Corpuscular Hemoglobin Concent 33.5 % Red Cell Distribution Width 14.5 % Platelet Count 268 TH/MM3 Mean Platelet Volume 7.8 FL Neutrophils (%) (Auto) 89.1 % Lymphocytes (%) (Auto) 4.5 % Monocytes (%) (Auto) 5.5 % Eosinophils (%) (Auto) 0.5 % Basophils (%) (Auto) 0.4 % Neutrophils # (Auto) 13.4 TH/MM3 Lymphocytes # (Auto) 0.7 TH/MM3 Monocytes # (Auto) 0.8 TH/MM3 Eosinophils # (Auto) 0.1 TH/MM3 Basophils # (Auto) 0.1 TH/MM3 CBC Comment AUTO DIFF Differential Total Cells Counted 100 Neutrophils % (Manual) 85 % Lymphocytes % 5 % Monocytes % 9 % Neutrophils # (Manual) 12.9 TH/MM3 Metamyelocytes 1 % Differential Comment FINAL DIFF MANUAL Platelet Estimate NORMAL Platelet Morphology Comment NORMAL Ovalocytes 1+ Chano Cells 1+ Prothrombin Time 10.9 SEC Prothromb Time International Ratio 1.1 RATIO Activated Partial Thromboplast Time 24.5 SEC Urine Color YELLOW Urine Turbidity CLEAR Urine pH 7.0 Urine Specific [place] 1.010 Urine Protein NEG mg/dL Urine Glucose (UA) NEG mg/dL Urine Ketones TRACE mg/dL Urine Occult Blood NEG Urine Nitrite NEG Urine Bilirubin NEG Urine Urobilinogen 2.0 MG/DL Urine Leukocyte Esterase NEG Urine RBC 1 /hpf Urine WBC LESS THAN 1 /hpf Urine Mucus FEW /lpf Microscopic Urinalysis Comment CULT NOT INDICATED Blood Urea Nitrogen 15 MG/DL Creatinine 1.11 MG/DL Random Glucose 137 MG/DL Total Protein 6.2 GM/DL Albumin 2.9 GM/DL Calcium Level 8.2 MG/DL Alkaline Phosphatase 84 U/L Aspartate Amino Transf (AST/SGOT) 20 U/L Alanine Aminotransferase (ALT/SGPT) 28 U/L Total Bilirubin 0.6 MG/DL Sodium Level 137 MEQ/L Potassium Level 3.7 MEQ/L Chloride Level 104 MEQ/L Carbon Dioxide Level 20.0 MEQ/L Anion Gap 13 MEQ/L Estimat Glomerular Filtration Rate 64 ML/MIN Physical Examination HEENT: Normocephalic; atraumatic CHEST: Even/unlabored CARDIAC: RRR ABDOMEN: Soft, nondistended, nontender; bowel sounds active EXTREMITIES: No clubbing, cyanosis, or edema. SKIN: Normal; no rash; no jaundice. EDUCATION AND TRAINING MANAGER: Alert and oriented, poor historian (Anu Scott) Assessment and Plan Plan Assessment: - Coffee ground emesis with bedside Hemoccult positive stools Pt is a poor historian, per ER provider he was brought in for intractable nausea and vomiting for the past 4-5 days with noticeable coffee ground emesis. Denies acid reflux, heartburn, abdominal pain, constipation, diarrhea, noticeable blood in stool. Pt denies history of GIB. Has never had EGD. Last colonoscopy 4 years ago and states normal exam. H/H stable at this time. Ct abdomen and pelvis W IV contrast --> I do not see an etiology for the patient's bloody stools, nausea and vomiting. No bowel obstruction. Small hiatal hernia. Plan: EGD tomorrow (pt on clear liquids today) Obtain consent NPO after MN Monitor H/H Protonix Further recommendations based on findings of above Pt has been seen and examined by myself and Dr. Cortes and this note is written on his behalf (Anu Scott) Physician Comments Seen with Anu, plan discussed with the patient. Will follow up with you. Thank you for the consult. (Tootie Cortes MD) Anu Scott Oct 24, 2017 11:56 Tootie Cortes MD Oct 24, 2017 21:18
[2017-10-24 16:00] VITALS: BP 110/62; PULSE 95; RESP 17; TEMP 97.7; O2SAT 98
[2017-10-24 20:00] VITALS: BP 124/58; PULSE 93; RESP 18; TEMP 98.7; O2SAT 97
[2017-10-24] MEDS: acetaZOLAMIDE 250 MG TAB PO SCH (21:00)
[2017-10-24] MEDS: LACTOBACILLUS ACIDOPHILUS TAB PO SCH (21:00)
[2017-10-24] MEDS: SODIUM CHLORIDE 0.9% FLUSH 10 ML FLUSH IV FLUSH SCH (21:00)
[2017-10-24] MEDS: risperiDONE 1 MG TAB PO SCH (21:00)
[2017-10-25 00:13] VITALS: BP 133/70; PULSE 93; RESP 17; TEMP 98.8; O2SAT 96
[2017-10-25] MEDS: PANTOPRAZOLE INJ 80 MG in SODIUM CHLORIDE 0.9% INJ 100 ML IV SCH ×3 (04:11→22:59)
[2017-10-25 04:26] VITALS: BP 137/83; PULSE 92; RESP 18; TEMP 98.2; O2SAT 96
[2017-10-25] MEDS ORDERED: SODIUM CHLORID 0.9% 500 ML IV PRN (06:30)
[2017-10-25] MEDS ORDERED: LACTATED RINGER'S 1000 ML IV PRN (06:30)
[2017-10-25 08:00] VITALS: BP 148/73; PULSE 94; RESP 17; TEMP 97.9; O2SAT 96
[2017-10-25 08:17] LABS: AUTOMATED NEUTROPHIL # 11.7 TH/MM3 (1.8-7.7); BASOPHIL # 0.1 TH/MM3 (0-0.2); BASOPHIL % 0.4 % (0.0-2.0); EOSINOPHIL # 0.1 TH/MM3 (0-0.4); EOSINOPHIL % 0.9 % (0.0-4.0); HEMATOCRIT 40.4 % (39.0-51.0); HEMOGLOBIN 13.5 GM/DL (13.0-17.0); LYMPH % 7.1 % (9.0-44.0); MEAN CELL VOLUME 84.7 FL (80.0-100.0); MEAN CORPUSCULAR HEMOGLOBIN 28.3 PG (27.0-34.0); MEAN CORPUSCULAR HGB CONC 33.4 % (32.0-36.0); MONO % 6.4 % (0.0-8.0); MONOCYTE # 0.9 TH/MM3 (0-0.9); NEUT % 85.2 % (16.0-70.0); PLATELET COUNT 228 TH/MM3 (150-450); RED BLOOD COUNT 4.77 MIL/MM3 (4.50-5.90); RED CELL DISTRIBUTION WIDTH 14.3 % (11.6-17.2); WHITE BLOOD COUNT 13.7 TH/MM3 (4.0-11.0)
[2017-10-25] MEDS: LACTOBACILLUS ACIDOPHILUS TAB PO SCH ×2 (08:19→20:36)
[2017-10-25] MEDS: acetaZOLAMIDE 250 MG TAB PO SCH ×2 (08:19→20:37)
[2017-10-25] MEDS: LORATADINE 10 MG TAB PO SCH (08:20)
[2017-10-25] MEDS: LISINOPRIL 10 MG TAB PO SCH (08:20)
[2017-10-25] MEDS: SODIUM CHLORIDE 0.9% FLUSH 10 ML FLUSH IV FLUSH SCH ×2 (08:21→20:38)
[2017-10-25 08:46] LABS: ALBUMIN 2.9 GM/DL (3.4-5.0); AST (GOT) 23 U/L (15-37); BICARBONATE 17.9 MEQ/L (21.0-32.0); BLOOD UREA NITROGEN 15 MG/DL (7-18); CALCIUM 8.5 MG/DL (8.5-10.1); CHLORIDE 108 MEQ/L (98-107); CREATININE 0.78 MG/DL (0.60-1.30); GLOMERULAR FILTRATION RATE 96 ML/MIN (>89); GLUCOSE,RANDOM 69 MG/DL (74-106); SODIUM (NA) 138 MEQ/L (136-145)
[2017-10-25 08:48] LABS: ALT (GPT) 31 U/L (12-78)
[2017-10-25 08:49] LABS: ALKALINE PHOSPHATASE 89 U/L (45-117); TOTAL BILIRUBIN ADULT 0.6 MG/DL (0.2-1.0); TOTAL PROTEIN 6.2 GM/DL (6.4-8.2)
[2017-10-25] MEDS: cefTRIAXone INJ 1,000 MG in SODIUM CHLORIDE 0.9% INJ 100 ML IV SCH (08:55)
[2017-10-25] MEDS ORDERED: NON-FORMULARY DRUG (Levocetirizine 5 MG) PO SCH (09:00)
--- NOTE | 2017-10-25 10:20 | GIPROC ---
[facility] [address] [facility]. [facility], [id number] EGD PROCEDURE REPORT EXAM DATE: 10/25/2017 PATIENT NAME: Mario Lim MR #: [id number] BIRTHDATE: 1940 ATTENDING: Tootie Cortes MD ORDER #: [id number] COPY CHASER: Teresita Shay and Jose Smith STATUS: inpatient INDICATIONS: The patient is a 77 yr old male here for an EGD due to hematemesis PROCEDURE PERFORMED: EGD w/ biopsy MEDICATIONS: None and Per Anesthesia. TOPICAL ANESTHETIC: none CONSENT: The patient understands the risks and benefits of the procedure and understands that these risks include, but are not limited to: sedation, allergic reaction, infection, perforation and/or bleeding. Alternative means of evaluation and treatment include, among others: physical exam, x-rays, and/or surgical intervention. The patient elects to proceed with this endoscopic procedure. medical equipment was checked for proper function. Hand hygiene and appropriate measures for infection prevention was taken. After the risks, benefits and alternatives of the procedure were thoroughly explained, Informed consent was verified, confirmed and timeout was successfully executed by the treatment team. The patient was anesthetized with topical anesthesia and the Pentax [id number] endoscope was introduced through the mouth and advanced to the second portion of the duodenum. Retroflexion was performed and was normal The gastroscope was then slowly withdrawn and removed. ESOPHAGUS: Multiple large non-bleeding, irregular shaped and clean-based ulcers were found in the lower third of the esophagus. Biopsies were taken at edge of the ulcers and at the center of the ulcers. DUODENUM: The duodenal mucosa appeared normal in the bulb and second portion of the duodenum and 3rd part duodenum. ADVERSE EVENTS: There were no complications. IMPRESSIONS: 1. Multiple large ulcers were found in the lower third of the esophagus; biopsies were taken 2. Normal duodenal mucosa in the bulb and second portion of the duodenum and 3rd part duodenum 3. Retroflexion was performed and was normal RECOMMENDATIONS: 1. Await biopsy results. Biopsy results will not be ready for 7-10 days. If you don't hear from us in two weeks, call our office for biopsy results. 2. Continue PPI PATIENT CONDITION: stable DISPOSITION: Observation REPEAT EXAM: NONE Tootie Cortes MD eSigned: Tootie Cortes MD 10/25/2017 10:19 AM cc: PATIENT NAME: Mario Lim MR#: [id number]
[2017-10-25] MEDS: AZITHROMYCIN INJ 500 MG in SODIUM CHLOR 0.9% 250 ML INJ 250 ML IV SCH (10:33)
[2017-10-25] MEDS ORDERED: DO NOT ADM ANY ANTICOAGULANT DRUGS PRN (11:15)
[2017-10-25 12:00] VITALS: BP 110/62; PULSE 90; RESP 16; TEMP 98.2; O2SAT 92
[2017-10-25] MEDS ORDERED: LIDOCAINE HCL 1% PF 5 ML SYRINGE OTHER ONE (12:00)
[2017-10-25] MEDS ORDERED: SUCCINYLCHOLINE CHLORIDE 100 MG/5 ML SYRINGE IV PUSH ONE (12:00)
[2017-10-25] MEDS ORDERED: ROCURONIUM INJ 50 MG/5 ML SYRINGE IV PUSH ONE (12:00)
[2017-10-25] MEDS ORDERED: ePHEDrine/NS 25 MG/5 ML SYRINGE IV ONE (12:00)
[2017-10-25] MEDS ORDERED: POTASSIUM CHLORIDE 10 MEQ CONTROLLED RELEASE TAB PO ONE (12:00)
[2017-10-25] MEDS ORDERED: PHENYLEPH/NS 1000 MCG/10 ML SYR IV ONE (12:00)
[2017-10-25] MEDS ORDERED: METOPROLOL TARTRATE 5 MG/5 ML VIAL IV ONE (12:00)
[2017-10-25] MEDS ORDERED: PROPOFOL 200 MG/20 ML AMP IV ONE (12:00)
--- NOTE | 2017-10-25 14:52 | HHI.PR ---
Subjective Remarks Had a bowel movement nonbloody today. Found with esophageal ulcer. No abdominal pain at this time. No chest pain or shortness of breath. Feels tired. Some cough nonproductive at this time. No fever chills overnight. Objective Vitals Vital Signs Date Time Temp Pulse Resp B/P (MAP) Pulse Ox O2 Delivery O2 Flow Rate FiO2 10/25/17 12:00 98.2 90 16 110/62 (78) 92 10/25/17 11:05 83 16 112/59 (76) 100 Room Air 10/25/17 10:45 80 16 112/56 (74) 100 Room Air 10/25/17 10:30 85 16 112/57 (75) 100 Room Air 10/25/17 10:24 98.5 87 16 125/58 (80) 100 Nasal Cannula 4 10/25/17 08:00 97.9 94 17 148/73 (98) 96 10/25/17 04:26 98.2 92 18 137/83 (101) 96 10/25/17 00:13 98.8 93 17 133/70 (91) 96 10/24/17 20:00 98.7 93 18 124/58 (80) 97 10/24/17 16:00 97.7 95 17 110/62 (78) 98 I/O 10/24/17 10/24/17 10/24/17 10/25/17 10/25/17 10/25/17 07:00 15:00 23:00 07:00 15:00 23:00 Intake Total 580 ml 400 ml Balance 580 ml 400 ml Intake Oral 480 ml IV Total 100 ml Other 400 ml # Voids 3 Result Diagram: 10/25/17 0639 10/25/17 0639 Imaging Last Impressions Chest X-Ray 10/24/17 0710 Signed Impressions: CONCLUSION: 1. No free air is identified, as questioned. 2. Left basilar opacity representing either atelectasis or airspace consolidat ion. Head CT 10/24/17 0000 Signed Impressions: CONCLUSION: 1. No acute intracranial abnormality. 2. Atrophy and chronic small vessel ischemic change. Cervical Spine CT 10/24/17 0000 Signed Impressions: CONCLUSION: 1. Severe multilevel degenerative disc disease with marked loss of disc height and bridging anterior osteophytes from C3-4 inferiorly. 2. Despite the uncovertebral ridging, most severe at C5-6 and C6-7, believe th e spinal canal is adequate throughout without cord compromise. 3. Minimal grade 1 anterolisthesis of C4 on 5 with a minimal grade 1 retrolist hesis of C3 on 4 probably due to facet degeneration. No acute fracture. 4. Foraminal narrowing which may be severe enough to compromise the right C4 n erve root. Abdomen/Pelvis CT 10/24/17 0000 Signed Impressions: CONCLUSION: 1. I do not see an etiology for the patient's bloody stools, nausea and vomiti ng. No bowel obstruction. 2. However, the prostate is enlarged with heterogeneous enhancement and a very prominent anterior lobe. This does cause some apparent bladder outlet obstruct ion with distention of the urinary bladder. I would correlate findings with ser um PSA. 3. Tiny right with a small left pleural effusion. 4. Small hiatal hernia. Objective Remarks GENERAL: This is a well-nourished, well-developed patient, in no apparent distress. CARDIOVASCULAR: Regular rate and rhythm without murmurs, gallops, or rubs. RESPIRATORY: Clear to auscultation. Breath sounds equal bilaterally. No wheezes , rales, or rhonchi. GASTROINTESTINAL: Abdomen soft, non-tender, nondistended. No hepato-splenomegaly , or palpable masses. No guarding. MUSCULOSKELETAL: Extremities without clubbing, cyanosis, or edema. No joint tenderness, effusion, or edema noted. No calf tenderness. Negative Homans sign bilaterally. NEUROLOGICAL: Awake and alert. Cranial nerves II through XII intact. Motor and sensory grossly within normal limits. Five out of 5 muscle strength in all muscle groups. Normal speech. A/P Problem List: (1) Sepsis ICD Code: A41.9 - Sepsis, unspecified organism (2) HCAP (healthcare-associated pneumonia) ICD Code: J18.9 - Pneumonia, unspecified organism (3) Heme positive stool ICD Code: R19.5 - Other fecal abnormalities (4) Fall ICD Code: W19.XXXA - Unspecified fall, initial encounter Assessment and Plan 77-year-old man with Sepsis on admission: Heart rate over 90, WBC > 44743, < 4000 or > 10% bands, Infect source susp/known(HCAP) Continue Rocephin and azithromycin IV pending cultures. UA negative. Lactic acid normal Healthcare associated pneumonia Chest x-ray noted and reviewed by me with finding of left basilar opacity Continue Rocephin and azithromycin IV pending cultures DuoNeb as needed, Mucinex and maintain oxygen saturation above 88% Leukocytosis - secondary from the above. Monitor WBCs Mechanical fall Head CT noted and reviewed by me without any intracranial abnormality Cervical spine CT noted and reviewed by me with finding of DJD Fall precaution, consult PT Upper GI bleed due to esophageal ulcer likely. Found with heme positive stool on admission. H&H stable monitor and transfuse if hemoglobin less than 7 or if the patient is symptomatic. Consult GI for evaluation. Status post EGD 10/25/17. Patient has a esophageal ulcer Continue serial H&H monitoring PPI drip Emesis. Resolved. Tolerates liquids, advance diet per GI recommendations. Abdominal CT noted and reviewed by me without any identifiable cause of patient emesis Treatment with antiemetic, gentle IV fluid hydration Global weakness PT consult to treat and eval Hypertension - Resume outpatient medication DVT prophylaxis: Bilateral SCDs Code Status Full code Discussed Condition With Patient, nurse Discharge plan. Discharge when improved and cleared by consultants. Skylar Blanco MD Oct 25, 2017 14:52
[2017-10-25 16:00] VITALS: BP 130/63; PULSE 109; RESP 18; TEMP 97.9; O2SAT 98
[2017-10-25 20:21] VITALS: BP 127/64; PULSE 99; RESP 18; TEMP 98.2; O2SAT 97
[2017-10-25] MEDS: risperiDONE 1 MG TAB PO SCH (20:37)
[2017-10-26 00:24] VITALS: BP 137/59; PULSE 101; RESP 18; TEMP 99.8; O2SAT 96
[2017-10-26 08:00] VITALS: BP 109/66; PULSE 97; RESP 18; TEMP 98.5; O2SAT 95
[2017-10-26] MEDS: SODIUM CHLORIDE 0.9% FLUSH 10 ML FLUSH IV FLUSH SCH ×2 (09:06→20:31)
[2017-10-26] MEDS: AZITHROMYCIN INJ 500 MG in SODIUM CHLOR 0.9% 250 ML INJ 250 ML IV SCH (09:06)
[2017-10-26] MEDS: cefTRIAXone INJ 1,000 MG in SODIUM CHLORIDE 0.9% INJ 100 ML IV SCH (09:06)
[2017-10-26] MEDS: LACTOBACILLUS ACIDOPHILUS TAB PO SCH ×2 (09:07→20:30)
[2017-10-26] MEDS: LORATADINE 10 MG TAB PO SCH (09:07)
[2017-10-26] MEDS: acetaZOLAMIDE 250 MG TAB PO SCH ×2 (09:07→20:30)
[2017-10-26] MEDS: LISINOPRIL 10 MG TAB PO SCH (09:07)
--- NOTE | 2017-10-26 09:27 | HHI.PR ---
Subjective Remarks Still with nausea vomiting in the morning. Says she will like to try full liquid diet later today. No much abdominal pain. No fever or chills. Is not coughing. Eating much. No appetite. Objective Vitals Vital Signs Date Time Temp Pulse Resp B/P (MAP) Pulse Ox O2 Delivery O2 Flow Rate FiO2 10/26/17 08:00 98.5 97 18 109/66 (80) 95 10/26/17 00:24 99.8 101 18 137/59 (85) 96 10/25/17 20:21 98.2 99 18 127/64 (85) 97 10/25/17 16:00 97.9 109 18 130/63 (85) 98 10/25/17 12:00 98.2 90 16 110/62 (78) 92 10/25/17 11:05 83 16 112/59 (76) 100 Room Air 10/25/17 10:45 80 16 112/56 (74) 100 Room Air 10/25/17 10:30 85 16 112/57 (75) 100 Room Air 10/25/17 10:24 98.5 87 16 125/58 (80) 100 Nasal Cannula 4 I/O 10/25/17 10/25/17 10/25/17 10/26/17 10/26/17 10/26/17 07:00 15:00 23:00 07:00 15:00 23:00 Intake Total 580 ml 850 ml 550 ml 580 ml Output Total 200 ml Balance 580 ml 650 ml 550 ml 580 ml Intake Oral 480 ml 450 ml 580 ml IV Total 100 ml 450 ml 100 ml Other 400 ml Output Emesis 200 ml # Voids 3 4 4 # Bowel Movements 1 Result Diagram: 10/25/17 0639 10/25/17 0639 Imaging Last Impressions Chest X-Ray 10/24/17 0710 Signed Impressions: CONCLUSION: 1. No free air is identified, as questioned. 2. Left basilar opacity representing either atelectasis or airspace consolidat ion. Head CT 10/24/17 0000 Signed Impressions: CONCLUSION: 1. No acute intracranial abnormality. 2. Atrophy and chronic small vessel ischemic change. Cervical Spine CT 10/24/17 0000 Signed Impressions: CONCLUSION: 1. Severe multilevel degenerative disc disease with marked loss of disc height and bridging anterior osteophytes from C3-4 inferiorly. 2. Despite the uncovertebral ridging, most severe at C5-6 and C6-7, believe th e spinal canal is adequate throughout without cord compromise. 3. Minimal grade 1 anterolisthesis of C4 on 5 with a minimal grade 1 retrolist hesis of C3 on 4 probably due to facet degeneration. No acute fracture. 4. Foraminal narrowing which may be severe enough to compromise the right C4 n erve root. Abdomen/Pelvis CT 10/24/17 0000 Signed Impressions: CONCLUSION: 1. I do not see an etiology for the patient's bloody stools, nausea and vomiti ng. No bowel obstruction. 2. However, the prostate is enlarged with heterogeneous enhancement and a very prominent anterior lobe. This does cause some apparent bladder outlet obstruct ion with distention of the urinary bladder. I would correlate findings with ser um PSA. 3. Tiny right with a small left pleural effusion. 4. Small hiatal hernia. Objective Remarks GENERAL: This is a well-nourished, well-developed patient, in no apparent distress. CARDIOVASCULAR: Regular rate and rhythm without murmurs, gallops, or rubs. RESPIRATORY: Clear to auscultation. Breath sounds equal bilaterally. No wheezes , rales, or rhonchi. GASTROINTESTINAL: Abdomen soft, non-tender, nondistended. No hepato-splenomegaly , or palpable masses. No guarding. MUSCULOSKELETAL: Extremities without clubbing, cyanosis, or edema. No joint tenderness, effusion, or edema noted. No calf tenderness. Negative Homans sign bilaterally. NEUROLOGICAL: Awake and alert. Cranial nerves II through XII intact. Motor and sensory grossly within normal limits. Five out of 5 muscle strength in all muscle groups. Normal speech. A/P Problem List: (1) Sepsis ICD Code: A41.9 - Sepsis, unspecified organism (2) HCAP (healthcare-associated pneumonia) ICD Code: J18.9 - Pneumonia, unspecified organism (3) Heme positive stool ICD Code: R19.5 - Other fecal abnormalities (4) Fall ICD Code: W19.XXXA - Unspecified fall, initial encounter Assessment and Plan 77-year-old man with Sepsis on admission: Heart rate over 90, WBC > 19688, < 4000 or > 10% bands, Infect source susp/known(HCAP) Continue Rocephin and azithromycin IV pending cultures. UA negative. Lactic acid normal Healthcare associated pneumonia Chest x-ray noted and reviewed by me with finding of left basilar opacity Continue Rocephin and azithromycin IV pending cultures DuoNeb as needed, Mucinex and maintain oxygen saturation above 88% Leukocytosis - secondary from the above. Monitor WBCs Mechanical fall Head CT noted and reviewed by me without any intracranial abnormality Cervical spine CT noted and reviewed by me with finding of DJD Fall precaution, consult PT Upper GI bleed due to esophageal ulcer likely. Found with heme positive stool on admission. H&H stable monitor and transfuse if hemoglobin less than 7 or if the patient is symptomatic. Consult GI for evaluation. Status post EGD 10/25/17. Patient has a esophageal ulcer Continue serial H&H monitoring PPI drip Emesis. Resolved. Tolerates liquids, advance diet per GI recommendations. Abdominal CT noted and reviewed by me without any identifiable cause of patient emesis Treatment with antiemetic, gentle IV fluid hydration Global weakness PT consult to treat and eval Hypertension - Resume outpatient medication DVT prophylaxis: Bilateral SCDs Code Status Full code Discussed Condition With Patient, nurse Discharge plan. Discharge when improved and cleared by consultants. Skylar Blanco MD Oct 26, 2017 09:27
[2017-10-26] MEDS: PANTOPRAZOLE INJ 80 MG in SODIUM CHLORIDE 0.9% INJ 100 ML IV SCH ×2 (10:20→20:43)
[2017-10-26] MEDS ORDERED: MIDAZOLAM HCL 2 MG/2 ML VIAL ONE (10:21)
[2017-10-26 12:00] VITALS: BP 118/59; PULSE 100; RESP 17; TEMP 98.5; O2SAT 98
[2017-10-26 16:00] VITALS: BP 124/58; PULSE 100; RESP 16; TEMP 98.8; O2SAT 99
[2017-10-26] MEDS: SUCRALFATE 1 GM TAB PO SCH (18:03)
[2017-10-26 20:00] VITALS: BP 114/65; PULSE 110; RESP 18; TEMP 98; O2SAT 96
[2017-10-26] MEDS: risperiDONE 1 MG TAB PO SCH (20:30)
[2017-10-27] VITALS: BP 111/63; PULSE 97; RESP 18; TEMP 99; O2SAT 93
[2017-10-27] MEDS: SUCRALFATE 1 GM TAB PO SCH (04:24)
[2017-10-27] MEDS: PANTOPRAZOLE INJ 80 MG in SODIUM CHLORIDE 0.9% INJ 100 ML IV SCH (04:24)
[2017-10-27 08:00] VITALS: BP 143/67; PULSE 97; RESP 18; TEMP 98.7; O2SAT 97
[2017-10-27 08:35] LABS: AUTOMATED NEUTROPHIL # 11.3 TH/MM3 (1.8-7.7); BASOPHIL % 0.3 % (0.0-2.0); EOSINOPHIL # 0.2 TH/MM3 (0-0.4); EOSINOPHIL % 1.2 % (0.0-4.0); HEMATOCRIT 36.2 % (39.0-51.0); HEMOGLOBIN 11.9 GM/DL (13.0-17.0); LYMPH % 5.8 % (9.0-44.0); LYMPHOCYTE # 0.8 TH/MM3 (1.0-4.8); MEAN CELL VOLUME 85.5 FL (80.0-100.0); MEAN CORPUSCULAR HEMOGLOBIN 28.2 PG (27.0-34.0); MEAN PLATELET VOLUME 8.4 FL (7.0-11.0); MONO % 8.5 % (0.0-8.0); MONOCYTE # 1.1 TH/MM3 (0-0.9); NEUT % 84.2 % (16.0-70.0); PLATELET COUNT 197 TH/MM3 (150-450); RED BLOOD COUNT 4.23 MIL/MM3 (4.50-5.90); RED CELL DISTRIBUTION WIDTH 15.2 % (11.6-17.2); WHITE BLOOD COUNT 13.5 TH/MM3 (4.0-11.0)
[2017-10-27] MEDS: cefTRIAXone INJ 1,000 MG in SODIUM CHLORIDE 0.9% INJ 100 ML IV SCH (09:00)
[2017-10-27 09:17] LABS: BICARBONATE 15.3 MEQ/L (21.0-32.0); CALCIUM 8.2 MG/DL (8.5-10.1); CREATININE 0.64 MG/DL (0.60-1.30)
[2017-10-27 09:37] LABS: BURR CELLS 1+ (NORMAL)
[2017-10-27] MEDS ORDERED: CARA1TAB6 PO (09:37)
[2017-10-27] MEDS ORDERED: LACTCHW3 CHEW (09:37)
[2017-10-27] MEDS ORDERED: CEFU1TAB18 PO (09:37)
[2017-10-27] MEDS ORDERED: PANT40TA3 PO (09:37)
--- NOTE | 2017-10-27 09:37 | HHI.DS ---
Discharge Summary Admission Date Oct 24, 2017 at 10:45 Discharge Date: Oct 27, 2017 Admitting Diagnosis GI bleed, pneumonia (1) Sepsis ICD Code: A41.9 - Sepsis, unspecified organism (2) HCAP (healthcare-associated pneumonia) ICD Code: J18.9 - Pneumonia, unspecified organism (3) Heme positive stool ICD Code: R19.5 - Other fecal abnormalities (4) Fall ICD Code: W19.XXXA - Unspecified fall, initial encounter Procedures Status post EGD 10/25/17. Patient has a esophageal ulcer Brief History - From Admission 77-year-old male with a past medical history for hypertension, hyperlipidemia was brought from a local SNF for evaluation of an episode of fall and weakness. Apparently patient was found on the ground and state he has tripped over himself landing the floor without loss of consciousness or trauma to his head. Patient also reported 2 day history of vomiting denies any hematemesis. He reports occasional episode of nonproductive cough however denies any febrile episode. Hemoccult test was positive in the ED but patient any gross visible blood in his stool, or dark stool. On admission, vitals stable, patient has elevated WBC with a normal H&H. CBC/BMP: 10/27/17 0624 10/27/17 0624 Significant Findings Laboratory Tests Test 10/24/17 13:28 10/25/17 06:39 10/27/17 06:24 White Blood Count 13.7 TH/MM3 (4.0-11.0) 13.5 TH/MM3 (4.0-11.0) Neutrophils (%) (Auto) 85.2 % (16.0-70.0) 84.2 % (16.0-70.0) Lymphocytes (%) (Auto) 7.1 % (9.0-44.0) 5.8 % (9.0-44.0) Neutrophils # (Auto) 11.7 TH/MM3 (1.8-7.7) 11.3 TH/MM3 (1.8-7.7) Random Glucose 69 MG/DL (74-106) 57 MG/DL (74-106) Total Protein 6.2 GM/DL (6.4-8.2) Albumin 2.9 GM/DL (3.4-5.0) Potassium Level 3.4 MEQ/L (3.5-5.1) 3.2 MEQ/L (3.5-5.1) Chloride Level 108 MEQ/L (98-107) 110 MEQ/L (98-107) Carbon Dioxide Level 17.9 MEQ/L (21.0-32.0) 15.3 MEQ/L (21.0-32.0) Red Blood Count 4.23 MIL/MM3 (4.50-5.90) Hemoglobin 11.9 GM/DL (13.0-17.0) Hematocrit 36.2 % (39.0-51.0) Monocytes (%) (Auto) 8.5 % (0.0-8.0) Lymphocytes # (Auto) 0.8 TH/MM3 (1.0-4.8) Monocytes # (Auto) 1.1 TH/MM3 (0-0.9) Calcium Level 8.2 MG/DL (8.5-10.1) Imaging Last Impressions Chest X-Ray 10/24/17 0710 Signed Impressions: CONCLUSION: 1. No free air is identified, as questioned. 2. Left basilar opacity representing either atelectasis or airspace consolidat ion. Head CT 10/24/17 0000 Signed Impressions: CONCLUSION: 1. No acute intracranial abnormality. 2. Atrophy and chronic small vessel ischemic change. Cervical Spine CT 10/24/17 0000 Signed Impressions: CONCLUSION: 1. Severe multilevel degenerative disc disease with marked loss of disc height and bridging anterior osteophytes from C3-4 inferiorly. 2. Despite the uncovertebral ridging, most severe at C5-6 and C6-7, believe th e spinal canal is adequate throughout without cord compromise. 3. Minimal grade 1 anterolisthesis of C4 on 5 with a minimal grade 1 retrolist hesis of C3 on 4 probably due to facet degeneration. No acute fracture. 4. Foraminal narrowing which may be severe enough to compromise the right C4 n erve root. Abdomen/Pelvis CT 10/24/17 0000 Signed Impressions: CONCLUSION: 1. I do not see an etiology for the patient's bloody stools, nausea and vomiti ng. No bowel obstruction. 2. However, the prostate is enlarged with heterogeneous enhancement and a very prominent anterior lobe. This does cause some apparent bladder outlet obstruct ion with distention of the urinary bladder. I would correlate findings with ser um PSA. 3. Tiny right with a small left pleural effusion. 4. Small hiatal hernia. PE at Discharge GENERAL: This is a well-nourished, well-developed patient, in no apparent distress. CARDIOVASCULAR: Regular rate and rhythm without murmurs, gallops, or rubs. RESPIRATORY: Clear to auscultation. Breath sounds equal bilaterally. No wheezes , rales, or rhonchi. GASTROINTESTINAL: Abdomen soft, non-tender, nondistended. No hepato-splenomegaly , or palpable masses. No guarding. MUSCULOSKELETAL: Extremities without clubbing, cyanosis, or edema. No joint tenderness, effusion, or edema noted. No calf tenderness. Negative Homans sign bilaterally. NEUROLOGICAL: Awake and alert. Cranial nerves II through XII intact. Motor and sensory grossly within normal limits. Five out of 5 muscle strength in all muscle groups. Normal speech. Pt update on day of discharge Patient feels better. He is able to eat no more nausea or vomiting. No abdominal pain. No fever or chills. Not coughing much. Feels a little bit weak. Hospital Course 77-year-old man with Sepsis on admission: Heart rate over 90, WBC > 83428, < 4000 or > 10% bands, Infect source susp/known(HCAP) Continue Rocephin and azithromycin IV cultures NTD UA negative. Lactic acid normal Healthcare associated pneumonia Chest x-ray noted and reviewed by me with finding of left basilar opacity Continue Rocephin and azithromycin IV pending cultures DuoNeb as needed, Mucinex and maintain oxygen saturation above 88% Leukocytosis - secondary from the above. Monitor WBCs Mechanical fall Head CT noted and reviewed by me without any intracranial abnormality Cervical spine CT noted and reviewed by me with finding of DJD Fall precaution, consult PT Upper GI bleed due to esophageal ulcer likely. Found with heme positive stool on admission. H&H stable monitor and transfuse if hemoglobin less than 7 or if the patient is symptomatic. Consult GI for evaluation. Status post EGD 10/25/17. Patient has a esophageal ulcer Continue serial H&H monitoring PPI drip, chane to PO pantoprazole. Add carafate Emesis. Resolved. Tolerates liquids, advance diet per GI recommendations. Abdominal CT noted and reviewed by me without any identifiable cause of patient emesis Treatment with antiemetic, gentle IV fluid hydration Global weakness PT consult to treat and eval Hypertension - Resume outpatient medication DVT prophylaxis: Bilateral SCDs Code Status Full code Discussed Condition With Patient, nurse Patient improved able to tolerate food, no more nausea. Discharge to SNF in fairly stable condition to follow up as OP with PCP and consultants. Pt Condition on Discharge: Stable Discharge Disposition: Discharge to SNF Discharge Time: > 30 minutes Discharge Instructions DIET: Follow Instructions for: Heart Healthy Diet Speech Therapy-Diet Recommends: Soft Activities you can perform: Regular-No Restrictions Follow up Referrals: Gastroenterology - 2 Weeks PCP Follow-up - 2-3 Days New Medications: Cefuroxime (Ceftin) 250 Mg Tab 250 MG PO BID for infection , #14 TAB Lactobacillus Acidophilus (Lactinex) 1 Chew 1 TAB CHEW DAILY for Nutritional Supplement for 30 Days, #30 TAB 0 Refills Pantoprazole (Pantoprazole) 40 Mg Tab 40 MG PO DAILY for Reflux, #30 TAB 0 Refills Sucralfate (Carafate) 1 Gram Tab 1 GM PO BIDAC for esophageal ulcer , #60 TAB Continued Medications: Acetazolamide (Acetazolamide) 250 Mg Tab 500 MG PO BID, #60 TAB 0 Refills Docusate Sodium (Colace) 100 Mg Capsule 100 MG PO HS for Prevent Constipation, #30 CAP 0 Refills Levocetirizine (Levocetirizine) 5 Mg Tab 5 MG PO DAILY for Allergy Management, #30 TAB 0 Refills Lisinopril (Lisinopril) 10 Mg Tab 10 MG PO DAILY, #30 TAB 0 Refills Risperidone (Risperidone) 1 Mg Tab 1 MG PO HS, #30 TAB 0 Refills Skylar Blanco MD Oct 27, 2017 09:37
[2017-10-27 09:38] LABS: ACANTHOCYTES OCC (NORMAL); OVALOCYTES 1+ (NORMAL)
[2017-10-27] MEDS: AZITHROMYCIN INJ 500 MG in SODIUM CHLOR 0.9% 250 ML INJ 250 ML IV SCH (09:47)
[2017-10-27] MEDS: LACTOBACILLUS ACIDOPHILUS TAB PO SCH (09:48)
[2017-10-27] MEDS: LISINOPRIL 10 MG TAB PO SCH (09:48)
[2017-10-27] MEDS: SODIUM CHLORIDE 0.9% FLUSH 10 ML FLUSH IV FLUSH SCH (09:48)
[2017-10-27] MEDS: LORATADINE 10 MG TAB PO SCH (09:48)
[2017-10-27] MEDS: acetaZOLAMIDE 250 MG TAB PO SCH (09:48)
[2017-10-27 12:00] VITALS: BP 130/70; PULSE 104; RESP 18; TEMP 98.1; O2SAT 98
== END 2017-10-27 13:56 | DRG 871 ==
LOC: NEPE 06:57 → NEDA 10:45 → N07A 15:15
PROVIDERS: ADMIT Hospitalist; ATTEND Hospitalist
PROC: 0DB38ZX Excision of Lower Esophagus, Via Natural or Artificial Opening Endoscopic, Diagnostic (ICD-10-PCS; principal; 2017-10-25 09:51)
DX: A41.9 Sepsis, unspecified organism (principal); J18.9 Pneumonia, unspecified organism; K92.0 Hematemesis; K22.10 Ulcer of esophagus without bleeding; J98.11 Atelectasis; F20.9 Schizophrenia, unspecified; R11.2 Nausea with vomiting, unspecified; E78.5 Hyperlipidemia, unspecified; I10 Essential (primary) hypertension; K44.9 Diaphragmatic hernia without obstruction or gangrene; R19.5 Other fecal abnormalities; N40.0 Benign prostatic hyperplasia without lower urinary tract symptoms; W01.0XXA Fall on same level from slipping, tripping and stumbling without subsequent striking against object, initial encounter; Y95 Nosocomial condition; Z91.81 History of falling
CPT/HCPCS: 70450; 71045; 72125; 74177; 80048; 80053; 81001; 83605; 85007; 85025; 85027; 85610; 85730; 86850; 86900; 86901; 88305; 88312; 96361; 96365; 96366; 96368; C9113; J0330; J0456; J0696; J2250; J2370; J3010; J7030; J7050; Q9967

== ENCOUNTER 2017-11-11 22:25 | Inpatient (IN) | payer MEDICARE, OTHER ==
[~2017-11-11] VITALS: Ht 162.6 cm; Wt 81.4 kg
[~2017-11-11 22:25] MED LIST changes: -ACET-822 PO; -ARTHTAB2 PO; -BRIM0.2S4 LEFT EYE; +CARA1TAB6 PO; +CEFU1TAB18 PO; +LACTCHW3 CHEW; -LATA.005%O LEFT EYE; +PANT40TA3 PO; -PRED1SUS LEFT EYE; -TIMO0.5S5 LEFT EYE
[2017-11-11 22:30] VITALS: RESP 16; O2SAT 99
[2017-11-11 22:34] VITALS: BP 78/37; PULSE 120; RESP 16; TEMP 99.9; O2SAT 100
[2017-11-11 23:16] LABS: AUTOMATED NEUTROPHIL # 19.4 TH/MM3 (1.8-7.7); BASOPHIL # 0.1 TH/MM3 (0-0.2); BASOPHIL % 0.3 % (0.0-2.0); EOSINOPHIL # 0.1 TH/MM3 (0-0.4); EOSINOPHIL % 0.3 % (0.0-4.0); HEMATOCRIT 37.8 % (39.0-51.0); HEMOGLOBIN 12.4 GM/DL (13.0-17.0); LYMPH % 2.9 % (9.0-44.0); LYMPHOCYTE # 0.6 TH/MM3 (1.0-4.8); MEAN CELL VOLUME 85.7 FL (80.0-100.0); MEAN CORPUSCULAR HEMOGLOBIN 28.1 PG (27.0-34.0); MEAN CORPUSCULAR HGB CONC 32.8 % (32.0-36.0); MEAN PLATELET VOLUME 9.4 FL (7.0-11.0); MONO % 7.9 % (0.0-8.0); MONOCYTE # 1.7 TH/MM3 (0-0.9); NEUT % 88.6 % (16.0-70.0); PLATELET COUNT 189 TH/MM3 (150-450); RED BLOOD COUNT 4.41 MIL/MM3 (4.50-5.90); RED CELL DISTRIBUTION WIDTH 15.3 % (11.6-17.2); WHITE BLOOD COUNT 21.9 TH/MM3 (4.0-11.0)
[2017-11-11 23:25] LABS: INTERNATIONAL NORMALIZED RATIO 1.1 RATIO; PROTHROMBIN TIME - PATIENT 11.6 SEC (9.8-11.6)
[2017-11-11 23:29] LABS: AMORPHOUS SEDIMENT, URINE RARE; BACTERIA, URINE RARE /hpf; BILIRUBIN, URINE NEG (NEG); BLOOD, URINE NEG (NEG); GLUCOSE,URINE NEG (NEG); HYALINE CAST, URINE 165 /lpf (RARE); KETONE, URINE NEG (NEG); MUCUS URINE MANY /lpf (OCC); NITRITE,URINE NEG (NEG); SQUAMOUS EPITHELIAL CELL URINE 2 /hpf (0-5); URINE COLOR Amber (YELLW/STRAW); URINE LEUKOCYTE ESTERASE TRACE (NEG); WAXY CAST, URINE 7 /lpf
[2017-11-11] MEDS ORDERED: VANCOMYCIN INJ 1,000 MG in SODIUM CHLOR 0.9% 250 ML INJ 250 ML IV ONE (23:30)
[2017-11-11] MEDS ORDERED: PIPERACIL-TAZO 3.375 GM PREMIX 50 ML IV ONE (23:30)
[2017-11-11 23:44] LABS: BANDS 8 % (0-6); BURR CELLS 2+ (NORMAL); LYMPHOCYTES 1 % (9-44); MONOCYTES 7 % (0-8); NEUTROPHIL # MANUAL DIFF 20.1 TH/MM3 (1.8-7.7); OVALOCYTES 1+ (NORMAL); POLYS (SEG NEUTROPHILS) 84 % (16-70)
[2017-11-11 23:50] LABS: ALKALINE PHOSPHATASE 85 U/L (45-117); TOTAL BILIRUBIN ADULT 0.4 MG/DL (0.2-1.0); TOTAL PROTEIN 5.8 GM/DL (6.4-8.2)
--- NOTE | 2017-11-11 23:57 | RADRPT ---
EXAM DATE: 11/11/2017 11:53 PM EDT AGE/SEX: 77 years / Male INDICATIONS: Shortness of breath. CLINICAL DATA: This is the patient's initial encounter. Patient reports that signs and symptoms have been present for 1 day and indicates a pain score of 0/10. MEDICAL/SURGICAL HISTORY: Hypertension. Cardiovascular disease. Tonsillectomy. COMPARISON: [facility] – [place], 10/24/2017. . FINDINGS: A single AP view of the chest demonstrates the lungs to be symmetrically aerated without evidence of mass, infiltrate or effusion. The cardiomediastinal contours are unremarkable. Osseous structures a re intact. CONCLUSION: No acute cardiopulmonary disease. Electronically signed by: Daryl Zimmer MD 11/11/2017 11:56 PM EDT
[2017-11-12] VITALS (11 sets, daily range): BP systolic 110–132; BP diastolic 55–77; PULSE 100–124; RESP 16–25; TEMP 97.7–98.2; O2SAT 97–99
[2017-11-12 00:18] LABS: ALBUMIN 2.4 GM/DL (3.4-5.0); ALT (GPT) 25 U/L (12-78); AST (GOT) 33 U/L (15-37); BICARBONATE 19.7 MEQ/L (21.0-32.0); BLOOD UREA NITROGEN 47 MG/DL (7-18); CALCIUM 7.5 MG/DL (8.5-10.1); CHLORIDE 108 MEQ/L (98-107); CREATININE 2.32 MG/DL (0.60-1.30); GLOMERULAR FILTRATION RATE 27 ML/MIN (>89); GLUCOSE,RANDOM 106 MG/DL (74-106); SODIUM (NA) 138 MEQ/L (136-145)
[2017-11-12] MEDS ORDERED: AMINLIQ7 (01:21)
[2017-11-12] MEDS ORDERED: ZINC220T PO (01:21)
[2017-11-12] MEDS ORDERED: CALC1TAB87 PO (01:21)
[2017-11-12] MEDS ORDERED: CETI10CH CHEW (01:21)
[2017-11-12] MEDS ORDERED: TYLE325T PO (01:21)
[2017-11-12] MEDS ORDERED: VITA500C18 PO (01:21)
--- NOTE | 2017-11-12 01:22 | RADRPT ---
EXAM DATE: 11/12/2017 1:08 AM EDT AGE/SEX: 77 years / Male INDICATIONS: Fever; rule out pneumonia. CLINICAL DATA: This is the patient's initial encounter. Patient reports that signs and symptoms have been present for 1 day and indicates a pain score of Nonresponsive. MEDICAL/SURGICAL HISTORY: Hypertension. BPH Tonsillectomy. RADIATION DOSE: 5.81 CTDI (mGy) ; Combined studies COMPARISON: [facility], CHEST SINGLE AP, 11/11/2017. . TECHNIQUE: Multiple contiguous axial images were obtained through the chest without contrast. Image s were obtained in suspended respiration using multiple row detector helical technique. Using automa rizwan exposure control and adjustment of the mA and/or kV according to patient size, radiation dose was kept as low as reasonably achievable to obtain optimal diagnostic quality images. DICOM format imag e data is available electronically for review and comparison. FINDINGS: Lungs: The lungs are symmetrically aerated. There is patchy infiltrate in the right lower lobe. Left lung is clear.. Mediastinum: There is good visualization of the great vessels of the middle mediastinum. No evidenc e of mediastinal or hilar adenopathy/mass. There is mild cardiomegaly with a small amount of pericard ial fluid. There are mild coronary artery calcifications. Pleurae: No evidence of focal thickening or pleural effusion. Axillae: Unremarkable. Bony Structures: Unremarkable. Miscellaneous: The examination was extended to include the upper abdomen, and both adrenal glands ar e normal in size and configuration. A benign cyst is noted in the upper pole of the right kidney. CONCLUSION: 1. Mild patchy infiltrate in the right lower lobe could indicate early pneumonia. 2. Cardiomegaly with small amount of pericardial fluid present. 3. Mild coronary artery calcifications. Electronically signed by: Daryl Zimmer MD 11/12/2017 1:21 AM EDT
[2017-11-12] MEDS ORDERED: ACETAMINOPHEN 1000 MG/100 ML 65 ML IV ONE (01:30)
--- NOTE | 2017-11-12 01:38 | RADRPT ---
EXAM DATE: 11/12/2017 1:30 AM EDT AGE/SEX: 77 years / Male INDICATIONS: Fever. CLINICAL DATA: This is the patient's initial encounter. Patient reports that signs and symptoms have been present for 1 day and indicates a pain score of Nonresponsive. MEDICAL/SURGICAL HISTORY: Hypertension. BPH Tonsillectomy. RADIATION DOSE: 5.81 CTDI (mGy) ; Combined studies COMPARISON: [facility] – [place] THORAX W/O CONTRAST, 11/12/2017. . TECHNIQUE: Multiple contiguous axial images were obtained through the abdomen. Images were obtained using multiple row detector helical technique. Using automated exposure control and adjustment of the mA and/or kV according to patient size, radiation dose was kept as low as reasonably achievable to o btain optimal diagnostic quality images. DICOM format image data is available electronically for rev iew and comparison. FINDINGS: Lower Lungs: Mild patchy opacity is present in the right lower lobe.. The heart size is mildly enlarg ed and there is a small pericardial effusion. Liver: The liver has a homogeneous density without space-occupying lesion. There is no dilation of th e biliary tree. Spleen: Homogeneous density without enlargement. Pancreas: Unremarkable without mass or calcification. Kidneys: Normal in size and shape. No evidence of a solid mass or hydronephrosis. There is a benign simple cyst in the upper pole the right kidney. Adrenal Glands: Unremarkable. Aorta: The aorta and proximal iliac vessels are grossly unremarkable without aneurysmal dilation. Bowel/Mesentery: No oral contrast was given limiting the sensitivity of the exam. There are several loops of nondilated air-containing small bowel. There is no free air or fluid. Abdominal Wall: Intact. Retroperitoneum: No evidence of adenopathy in the retrocrural, para-aortic, or deep pelvic regions. Bladder: A Pressley catheter is present in the bladder is decompressed. Reproductive Organs: No abnormal masses or calcifications seen. Inguinal: The inguinal region is unremarkable without evidence of adenopathy. Bony Structures: Osteopenia, degenerative change and scoliosis are present. CONCLUSION: 1. Small pericardial effusion again noted. 2. Patchy mild opacity is again noted in the right lower lobe. 3. Mildly nonspecific bowel gas pattern with no evidence of obstruction. Electronically signed by: Daryl Zimmer MD 11/12/2017 1:36 AM EDT
[2017-11-12] MEDS ORDERED: Vancomycin Consult Pharmacy 1 EA OTHER SCH (01:45)
[2017-11-12] MEDS ORDERED: LACTULOSE SYRUP 20 GM/30 ML CUP PO PRN (01:45)
[2017-11-12] MEDS ORDERED: ONDANSETRON ODT 4 MG TAB PO PRN (01:45)
[2017-11-12] MEDS ORDERED: MAGNESIUM HYDROXIDE SUSP 30 ML CUP PO PRN (01:45)
[2017-11-12] MEDS ORDERED: SENNOSIDES 8.6 MG TAB PO PRN (01:45)
[2017-11-12] MEDS ORDERED: BISACODYL 10 MG SUPP RECTAL PRN (01:45)
[2017-11-12] MEDS ORDERED: RESP: ALBUTEROL 2.5 MG/IPRATROPIUM 0.5 MG NEB (PRN) INH (01:45)
--- NOTE | 2017-11-12 01:46 | HHI.HP ---
HPI Service Critical Care Medicine Primary Care Physician Unknown Admission Diagnosis Diagnosis: Chief Complaint: hypotension Travel History International Travel<30 Days: No Contact w/Intl Traveler <30 Da: No Traveled to Known Affected Are: No History of Present Illness 77yM presents from SNF after being found hypotensive on vitals check tonight. in the ER was 70s/30s, received 2L crystalloid bolus ivf and had improved blood pressure. patient is a very poor historian and unable to provide any reliable history. he denies any complaints. the only thing he tells me is "I missed my eye doctor appointment last week." denies chest pain, sob, abdominal pain, frequency or urgency of urination, or any other symptoms. However, answers "no" to every question I ask him, so difficult to assess accuracy of his answers. in the ER, u/a is positive and has an elevated wbc count to 21k with bandemia and neutrophil predominance. cr elevated a 2.32 (baseline 0.6). CT chest/abd/pelvis positive for RLL infiltrate, however patient has no cough and is on room air. given organ dysfunction and hypotension, patient is admitted to the hospital for severe sepsis likely of urinary origin. remainder of the ROS is negative, but as described above, unclear the accuracy of the patient's answers. Review of Systems ROS Limitations: Clinical Condition, Poor Historian Constitutional: DENIES: Fatigue, Fever, Chills Ears, nose, mouth, throat: DENIES: Throat pain Respiratory: DENIES: Cough, Snoring, Wheezing, Sputum production, Shortness of breath Cardiovascular: DENIES: Chest pain, Palpitations, Syncope, Dyspnea on Exertion , PND, Lower Extremity Edema Gastrointestinal: DENIES: Abdominal pain, Bloody stools, Constipation, Diarrhea , Nausea, Vomiting Genitourinary: DENIES: Urinary frequency, Urinary incontinence, Urgency, Hematuria Musculoskeletal: DENIES: Back pain, Neck pain Neurologic: DENIES: Abnormal gait, Headache, Localized weakness Psychiatric: DENIES: Anxiety, Confusion, Mood changes Past Family Social History Allergies: Coded Allergies: No Known Allergies (Unverified Allergy, Unknown, 11/11/17) Past Medical History Hypertension Hyperlipidemia Schizophrenia Past Surgical History Tonsillectomy Reported Medications Lactinex (Lactobacillus Acidophilus) 1 Chew 1 Tab CHEW DAILY 30 Days Ceftin (Cefuroxime Axetil) 250 Mg Tab 250 Mg PO BID Carafate (Sucralfate) 1 Gram Tab 1 Gm PO BIDAC Pantoprazole (Pantoprazole Sodium) 40 Mg Tab 40 Mg PO DAILY Cetirizine (Cetirizine HCl) 10 Mg Chew 10 Mg CHEW DAILY Zinc Sulfate 220 Mg Tab 220 Mg PO DAILY Calcium 600 with Vitamin D (Calcium Carbonate-Cholecalciferol) 600-400 mg-Unit Tab 1 Tab PO DAILY Pro-Stat (Amino Acids-Protein Hydrolysat) 15 Gram-100 Kcal/30 Ml Liq BID Vitamin C Sr (Ascorbic Acid) 500 Mg Caper 500 Mg PO BID Tylenol (Acetaminophen) 325 Mg Tab 650 Mg PO Q6H PRN Acetazolamide 250 Mg Tab 500 Mg PO BID Levocetirizine 5 Mg Tab 5 Mg PO DAILY Colace (Docusate Sodium) 100 Mg Capsule 100 Mg PO HS Risperidone 1 Mg Tab 1 Mg PO HS Lisinopril 10 Mg Tab 10 Mg PO DAILY Active Ordered Medications See MAR Family History Denies any family history of CAD, hypertension, cancer Social History denies tob, etoh, doa. Physical Exam Vital Signs Vital Signs Date Time Temp Pulse Resp B/P (MAP) Pulse Ox O2 Delivery O2 Flow Rate FiO2 11/12/17 00:08 124 16 132/77 (95) 99 Room Air 11/11/17 22:34 99.9 120 16 78/37 (51) 100 11/11/17 22:30 16 99 Room Air Physical Exam gen: elderly male, lying in bed, no acute distress. heent: nc. at. perrl. mmm. neck: trachea midline. no jvd. chest: unlabored. on room air. equal chest rise. cv: tachycardic rate, regular rhythm. HR 119 on my eval. sinus by telemetry. abd: soft, nontender, nondistended. no guarding. gu: resendiz in place with dark yellow urine. extr: no peripheral edema. distal pulses 2+. neuro: RASS 0. follows commands. no focal deficits. Laboratory Laboratory Tests Test 11/11/17 22:45 White Blood Count 21.9 Red Blood Count 4.41 Hemoglobin 12.4 Hematocrit 37.8 Mean Corpuscular Volume 85.7 Mean Corpuscular Hemoglobin 28.1 Mean Corpuscular Hemoglobin Concent 32.8 Red Cell Distribution Width 15.3 Platelet Count 189 Mean Platelet Volume 9.4 Neutrophils (%) (Auto) 88.6 Lymphocytes (%) (Auto) 2.9 Monocytes (%) (Auto) 7.9 Eosinophils (%) (Auto) 0.3 Basophils (%) (Auto) 0.3 Neutrophils # (Auto) 19.4 Lymphocytes # (Auto) 0.6 Monocytes # (Auto) 1.7 Eosinophils # (Auto) 0.1 Basophils # (Auto) 0.1 CBC Comment AUTO DIFF Differential Total Cells Counted 100 Neutrophils % (Manual) 84 Band Neutrophils % 8 Lymphocytes % 1 Monocytes % 7 Neutrophils # (Manual) 20.1 Differential Comment FINAL DIFF MANUAL Platelet Estimate NORMAL Platelet Morphology Comment NORMAL Ovalocytes 1+ [place] Cells 2+ Prothrombin Time 11.6 Prothromb Time International Ratio 1.1 Activated Partial Thromboplast Time 27.3 Urine Color [place] Urine Turbidity CLOUDY Urine pH 5.0 Urine Specific [place] 1.025 Urine Protein 30 Urine Glucose (UA) NEG Urine Ketones NEG Urine Occult Blood NEG Urine Nitrite NEG Urine Bilirubin NEG Urine Urobilinogen LESS THAN 2 Urine Leukocyte Esterase TRACE Urine RBC 9 Urine WBC 17 Urine Squamous Epithelial Cells 2 Urine Amorphous Sediment RARE Urine Bacteria RARE Urine Hyaline Casts 165 Urine Waxy Casts 7 Urine Mucus MANY Microscopic Urinalysis Comment CATH-CULTURE IND Blood Urea Nitrogen 47 Creatinine 2.32 Random Glucose 106 Total Protein 5.8 Albumin 2.4 Calcium Level 7.5 Alkaline Phosphatase 85 Aspartate Amino Transf (AST/SGOT) 33 Alanine Aminotransferase (ALT/SGPT) 25 Total Bilirubin 0.4 Sodium Level 138 Potassium Level 3.7 Chloride Level 108 Carbon Dioxide Level 19.7 Anion Gap 10 Estimat Glomerular Filtration Rate 27 Lactic Acid Level 1.9 Ammonia 38 Date/Time Source Procedure Growth Status 11/11/17 22:50 Blood Peripheral Aerobic Blood Culture Pending Received 11/11/17 22:50 Blood Peripheral Anaerobic Blood Culture Pending Received 11/11/17 22:45 Urine Catheterized Urine Urine Culture Pending Received Result Diagram: 11/11/[id number]/11/[id number] Imaging Last Impressions Chest CT 11/12/17 0000 Signed Impressions: CONCLUSION: 1. Mild patchy infiltrate in the right lower lobe could indicate early pneumon ia. 2. Cardiomegaly with small amount of pericardial fluid present. 3. Mild coronary artery calcifications. Abdomen/Pelvis CT 11/12/17 0000 Signed Impressions: CONCLUSION: 1. Small pericardial effusion again noted. 2. Patchy mild opacity is again noted in the right lower lobe. 3. Mildly nonspecific bowel gas pattern with no evidence of obstruction. Chest X-Ray 11/11/17 0000 Signed Impressions: CONCLUSION: No acute cardiopulmonary disease. Septic Shock Reassessment Septic shock perfusion: reassessment completed Caprini VTE Risk Assessment Caprini VTE Risk Assessment: Mod/High Risk (score >= 2) Caprini Risk Assessment Model Point Value = 1 Point Value = 2 Point Value = 3 Point Value = 5 Age 41-60 Minor surgery BMI > 25 kg/m2 Swollen legs Varicose veins or History of unexplained or recurrent spontaneous Oral contraceptives or hormone replacement Sepsis (< 1 month) Serious lung disease, including pneumonia (< 1 month) Abnormal pulmonary function Acute myocardial infarction Congestive heart failure (< 1 month) History of inflammatory bowel disease Medical patient at bed rest Age 61-74 Arthroscopic surgery Major open surgery (> 45 min) Laparoscopic surgery (> 45 min) Malignancy Confined to bed (> 72 hours) Immobilizing plaster cast Central venous access Age >= 75 History of VTE Family history of VTE Factor V Leiden Prothrombin [id number] Lupus anticoagulant Anticardiolipin antibodies Elevated serum homocysteine Heparin-induced thrombocytopenia Other congenital or acquired thrombophilia Stroke (< 1 month) Elective arthroplasty Hip, pelvis, or leg fracture Acute spinal cord injury (< 1 month) Prophylaxis Regimen Total Risk Factor Score Risk Level Prophylaxis Regimen 0-1 Low Early ambulation 2 Moderate Order ONE of the following: *Sequential Compression Device (SCD) *Heparin 5000 units SQ BID 3-4 Higher Order ONE of the following medications: *Heparin 5000 units SQ TID *Enoxaparin/Lovenox 40 mg SQ daily (WT < 150 kg, CrCl > 30 mL/min) *Enoxaparin/Lovenox 30 mg SQ daily (WT < 150 kg, CrCl > 10-29 mL/min) *Enoxaparin/Lovenox 30 mg SQ BID (WT < 150 kg, CrCl > 30 mL/min) AND/OR *Sequential Compression Device (SCD) 5 or more Highest Order ONE of the following medications: *Heparin 5000 units SQ TID (Preferred with Epidurals) *Enoxaparin/Lovenox 40 mg SQ daily (WT < 150 kg, CrCl > 30 mL/min) *Enoxaparin/Lovenox 30 mg SQ daily (WT < 150 kg, CrCl > 10-29 mL/min) *Enoxaparin/Lovenox 30 mg SQ BID (WT < 150 kg, CrCl > 30 mL/min) AND *Sequential Compression Device (SCD) Assessment and Plan Assessment and Plan Assessment: 77yM who is admitted with severe sepsis (leukocytosis, fever, tachycardia with hypotension and evidence of end-organ hypoperfusion/damage with acute kidney injury) likely secondary to urinary tract infection. admit to inpatient. given patient age and organ dysfunction, will need at least 2 midnights inpatient. will ask hospitalist service to assume care. Severe Sepsis with organ dysfunction - vancomycin with pharmacy dosing - zosyn 3.375gm iv q8h (given renal dysfunction) - additional 1L LR bolus - LR mivf - blood cultures, sputum culture, urine culture - likely urine is the source. unclear significance of chest infiltrate, but patient is without cough or oxygen requirement, so pneumonia is unlikely. will send urine legionella and pneumococcus ag to rule out. Urinary Tract Infection - abx as above. - urine culture Acute kidney injury - secondary to UTI and severe sepsis - ivf as above - trend on daily bmp - keep resendiz today. if Cr improves as expected as illness improves, would d/c resendiz tomorrow. Sinus tachycardia - secondary to SIRS response. will not beta blockade at this time. 1L LR bolus and LR mivf. - telemetry unit Fever - secondary to SIRS response and UTI - tylenol prn. Schizophrenia - continue home meds Hypertension - hold home antihypertensives in the setting of recent hypotension. - add back prn for goal sbp < 180. Heart healthy diet as tolerated after bedside swallow eval. SCDs [facility] dispo: admit to med/surg with tele. I certify that inpatient services are necessary. transfer to hospitalist services. Joe House MD Nov 12, 2017 01:46
[2017-11-12] MEDS ORDERED: ACETAMINOPHEN 325 MG TAB PO PRN (02:00)
[2017-11-12] MEDS ORDERED: LACTATED RINGER'S 1000 ML INJ 1,000 ML IV ONE (02:00)
[2017-11-12] MEDS ORDERED: NEED HT & WT SCH (02:00)
[2017-11-12] MEDS: HEPARIN SODIUM - SQ 10,000 UNITS/ML VIAL SQ SCH ×3 (02:11→17:19)
[2017-11-12] MEDS: LACTATED RINGER'S 1000 ML INJ 1,000 ML IV SCH ×3 (03:59→21:45)
--- NOTE | 2017-11-12 04:15 | PD ---
HPI . hypotension sepsis Chief Complaint: Cardiac Complaint Time Seen by Provider: 22:29 Travel History International Travel<30 days: No Contact w/Intl Traveler<30days: No Traveled to known affect area: No History of Present Illness HPI pt is from a prison where they found him to be hypotensive and minimally responsive paramedics were called BP was 70/50 paramedics tried in route to get access they were unable to use the IV that was from the prison and they were unable to get access themselves patient arrives minimally conscious lethargic BP is 50 over palp immediately we assess the need for access I put an emergent central line in his left femoral area and start 2 L normal saline wide open based on the fact that there was report that he was on Ceftin p.o. in the prison for possible pneumonia. Patient is unable to provide history as he is altered most likely due to sepsis and hypotension patient 2 L placed in his BP balance up to 130/70 however he remains tachycardic I rectal temp was 99.9 I gave him a 650 dose of IV Tylenol to help with a low-grade fever causing tachycardia and after 2 L he is much improved and his mentation however he still is demented or possibly delirium from sepsis Zosyn and Vanco empirically given urine returns with moderate amount of white blood cells chest x-ray was read as negative by the radiologist to review it in order CAT scan to look for chest possible retrocardiac pneumonia on the left or possible bowel ischemia causing the white count his WBCs serum is 21, I call Dr House of ICU and he accepts pt, Admit to ICU for continued resusitation PFSH Past Medical History Hx Anticoagulant Therapy: No Blood Disorders: Yes (GI) Cardiovascular Problems: Yes (HTN, EDEMA) High Cholesterol: Yes Diabetes: No Diminished Hearing: No Gastrointestinal Disorders: Yes (CONSTIPATION) GERD: Yes Genitourinary: Yes (BPH) Hypertension: Yes Musculoskeletal: Yes (WEAKNESS) Neurologic: Yes (DYSPHAGIA) Psychiatric: Yes (PSYCHOSIS) Respiratory: Yes (ALL RHINITIS) Integumentary: Yes (PRESSURE ULCERS L/R HEELS, SACRUM) Immunizations Current: Yes Pneumonia: Yes Schizophrenia: Yes Past Surgical History Tonsillectomy: Yes Other Surgery: Yes (TONSILS) Social History Alcohol Use: No Tobacco Use: No Substance Use: No Allergies-Medications (Allergen,Severity, Reaction): Coded Allergies: No Known Allergies (Unverified Allergy, Unknown, 11/11/17) Reported Meds & Prescriptions Reported Meds & Active Scripts Active Lactinex (Lactobacillus Acidophilus) 1 Chew 1 Tab CHEW DAILY 30 Days Ceftin (Cefuroxime Axetil) 250 Mg Tab 250 Mg PO BID Carafate (Sucralfate) 1 Gram Tab 1 Gm PO BIDAC Pantoprazole (Pantoprazole Sodium) 40 Mg Tab 40 Mg PO DAILY Reported Cetirizine (Cetirizine HCl) 10 Mg Chew 10 Mg CHEW DAILY Zinc Sulfate 220 Mg Tab 220 Mg PO DAILY Calcium 600 with Vitamin D (Calcium Carbonate-Cholecalciferol) 600-400 mg-Unit Tab 1 Tab PO DAILY Pro-Stat (Amino Acids-Protein Hydrolysat) 15 Gram-100 Kcal/30 Ml Liq BID Vitamin C Sr (Ascorbic Acid) 500 Mg Caper 500 Mg PO BID Tylenol (Acetaminophen) 325 Mg Tab 650 Mg PO Q6H PRN Acetazolamide 250 Mg Tab 500 Mg PO BID Levocetirizine 5 Mg Tab 5 Mg PO DAILY Colace (Docusate Sodium) 100 Mg Capsule 100 Mg PO HS Risperidone 1 Mg Tab 1 Mg PO HS Lisinopril 10 Mg Tab 10 Mg PO DAILY Physical Exam Narrative GENERAL: hypotensive AMS SKIN: Warm and dry. HEAD: Atraumatic. Normocephalic. EYES: Pupils equal and round. No scleral icterus. No injection or drainage. ENT: No nasal bleeding or discharge. Mucous membranes pink and moist. NECK: Trachea midline. No JVD. CARDIOVASCULAR: tachycardia 128 BP 50 / palp. RESPIRATORY: No accessory muscle use. Clear to auscultation. Breath sounds equal bilaterally. GASTROINTESTINAL: Abdomen soft, non-tender, nondistended. Hepatic and splenic margins not palpable. MUSCULOSKELETAL: Extremities without clubbing, cyanosis, or edema. No obvious deformities. non working IV in left froearm. NEUROLOGICAL: Lethargic minimally responsive , after 2 liters NS improved mentation but continues disoriented . Data Data Last Documented VS Vital Signs Date Time Temp Pulse Resp B/P (MAP) Pulse Ox O2 Delivery O2 Flow Rate FiO2 11/12/17 01:53 120 16 115/56 (75) 98 Room Air 11/11/17 22:34 99.9 Orders Orders Sepsis Workup Initiated (11/11/17 ) Complete Blood Count With Diff (11/11/17 22:43) Comprehensive Metabolic Panel (11/11/17 22:43) Urinalysis - C+S If Indicated (11/11/17 22:43) Lactic Acid Sepsis Protocol (11/11/17 22:43) Blood Culture (11/11/17 22:43) Iv Access Insert/Monitor (11/11/17 22:43) Oxygen Administration (11/11/17 22:43) Oximetry (11/11/17 22:43) Blood Glucose (11/11/17 22:43) Ammonia (11/11/17 22:44) Prothrombin Time / Inr (Pt) (11/11/17 22:49) Act Partial Throm Time (Ptt) (11/11/17 22:49) Chest, Single Ap (11/11/17 ) Urine Culture (11/11/17 22:45) Piperacil-Tazo 3.375 Gm Premix (Zosyn 3. (11/11/17 23:30) Vancomycin Inj (Vancomycin Inj) (11/11/17 23:30) Ct Abdomen W/O Iv Contrast (11/12/17 ) Ct Thorax/ Chest Wo Iv Contras (11/12/17 ) Electrocardiogram (11/12/17 ) Acetaminophen 1000 Mg/100 Ml (Ofirmev 10 (11/12/17 01:30) Ct Abd/Pel W/O Iv Contrast (11/12/17 ) Inpatient Certification (11/12/17 01:42) Resp Ezpap/Pep Therapy (11/12/17 01:42) Resp Acapella/Pep/Chest Vibra (11/12/17 01:42) Resp Incentive Spirometry (11/12/17 01:42) Lactated Ringer's 1000 Ml Inj (Lr 1000 M (11/12/17 01:45) Vancomycin Consult Pharmacy (Vancomycin (11/12/17 01:45) Piperacil-Tazo 3.375 Gm Premix (Zosyn 3. (11/12/17 07:00) Code Status (11/12/17 01:42) Elevate Head Of Bed (11/12/17 01:42) Activity Oob With Assistance (11/12/17 01:42) Neuro Checks . ORDERED (11/12/17 01:42) Diet Heart Healthy (11/12/17 Breakfast) Famotidine (Pepcid) (11/12/17 09:00) Albuterol-Ipratropium Neb (Duoneb Neb) (11/12/17 01:45) Sputum Culture And Gram Stain (11/12/17 01:42) Ms Sql Dba / Telemetry JAZMYN.Q8H (11/12/17 01:42) Heparin Inj (Heparin Inj) (11/12/17 01:45) Scd Bilateral/Knee High JAZMYN.BID (11/12/17 01:42) Docusate Sodium-Senna (Rufina-Colace) (11/12/17 09:00) Magnesium Hydroxide Liq (Milk Of Magnesi (11/12/17 01:45) Sennosides (Senokot) (11/12/17 01:45) Bisacodyl Supp (Dulcolax Supp) (11/12/17 01:45) Lactulose Liq (Lactulose Liq) (11/12/17 01:45) Nursing Information ([facility] Nursing Inform (11/12/17 02:00) Ondansetron Odt (Zofran Odt) (11/12/17 01:45) Lactated Ringer's 1000 Ml Inj (Lr 1000 M (11/12/17 02:00) Patient Transfer (11/12/17 ) Vital Signs (Adult) JAZMYN.Q4H (11/12/17 01:53) Admit Order (Ed Use Only) (11/12/17 01:53) Labs Laboratory Tests Test 11/11/17 22:45 White Blood Count 21.9 TH/MM3 Red Blood Count 4.41 MIL/MM3 Hemoglobin 12.4 GM/DL Hematocrit 37.8 % Mean Corpuscular Volume 85.7 FL Mean Corpuscular Hemoglobin 28.1 PG Mean Corpuscular Hemoglobin Concent 32.8 % Red Cell Distribution Width 15.3 % Platelet Count 189 TH/MM3 Mean Platelet Volume 9.4 FL Neutrophils (%) (Auto) 88.6 % Lymphocytes (%) (Auto) 2.9 % Monocytes (%) (Auto) 7.9 % Eosinophils (%) (Auto) 0.3 % Basophils (%) (Auto) 0.3 % Neutrophils # (Auto) 19.4 TH/MM3 Lymphocytes # (Auto) 0.6 TH/MM3 Monocytes # (Auto) 1.7 TH/MM3 Eosinophils # (Auto) 0.1 TH/MM3 Basophils # (Auto) 0.1 TH/MM3 CBC Comment AUTO DIFF Differential Total Cells Counted 100 Neutrophils % (Manual) 84 % Band Neutrophils % 8 % Lymphocytes % 1 % Monocytes % 7 % Neutrophils # (Manual) 20.1 TH/MM3 Differential Comment FINAL DIFF MANUAL Platelet Estimate NORMAL Platelet Morphology Comment NORMAL Ovalocytes 1+ [place] Cells 2+ Prothrombin Time 11.6 SEC Prothromb Time International Ratio 1.1 RATIO Activated Partial Thromboplast Time 27.3 SEC Urine Color [place] Urine Turbidity CLOUDY Urine pH 5.0 Urine Specific [place] 1.025 Urine Protein 30 mg/dL Urine Glucose (UA) NEG mg/dL Urine Ketones NEG mg/dL Urine Occult Blood NEG Urine Nitrite NEG Urine Bilirubin NEG Urine Urobilinogen LESS THAN 2 mg/dL Urine Leukocyte Esterase TRACE Urine RBC 9 /hpf Urine WBC 17 /hpf Urine Squamous Epithelial Cells 2 /hpf Urine Amorphous Sediment RARE Urine Bacteria RARE /hpf Urine Hyaline Casts 165 /lpf Urine Waxy Casts 7 /lpf Urine Mucus MANY /lpf Microscopic Urinalysis Comment CATH-CULTURE IND Blood Urea Nitrogen 47 MG/DL Creatinine 2.32 MG/DL Random Glucose 106 MG/DL Total Protein 5.8 GM/DL Albumin 2.4 GM/DL Calcium Level 7.5 MG/DL Alkaline Phosphatase 85 U/L Aspartate Amino Transf (AST/SGOT) 33 U/L Alanine Aminotransferase (ALT/SGPT) 25 U/L Total Bilirubin 0.4 MG/DL Sodium Level 138 MEQ/L Potassium Level 3.7 MEQ/L Chloride Level 108 MEQ/L Carbon Dioxide Level 19.7 MEQ/L Anion Gap 10 MEQ/L Estimat Glomerular Filtration Rate 27 ML/MIN Lactic Acid Level 1.9 mmol/L Ammonia 38 MCMOL/L [facility] Medical Decision Making Medical Screen Exam Complete: Yes Emergency Medical Condition: Yes Medical Record Reviewed: Yes Critical Care Narrative 45 minutes critical care time -->fluid resusitation [facility] emperically given mentation reassessed BP hypotension severe pre renal dehydration corrected cardiac activity closely monitored Procedures Procedure Narrative After the risks and benefits were outweighed by emergent need for access as pt was severely hypotensive and AMS CENTRAL VENOUS LINE: The site was prepped with Betadine and sterilely draped. It was infiltrated with 1% lidocaine plain. The deep vein was cannulated using normal Seldinger technique. A central line was placed in the [LEFT FEMORAL site and secured with pre-ivola adhesive snap securing apparatus . The site was sterilely dressed. The patient tolerated the procedure well. Diagnosis Primary Impression: Dehydration Additional Impressions: Sepsis UTI (urinary tract infection) RLL pneumonia Brian Gao MD Nov 12, 2017 04:15
[2017-11-12] MEDS: PIPERACIL-TAZO 3.375 GM PREMIX 50 ML IV SCH ×3 (07:40→23:56)
[2017-11-12] MEDS: DOCUSATE SODIUM 50 MG/SENNA 8.6 MG TAB PO SCH ×2 (07:40→21:28)
[2017-11-12] MEDS: FAMOTIDINE 20 MG TAB PO SCH ×2 (07:40→21:28)
--- NOTE | 2017-11-12 10:48 | HHI.PR ---
Subjective Remarks in no acute distress. awake and alert. denies pain or sob. T max 99.9. BP trend noted. Objective Vitals Vital Signs Date Time Temp Pulse Resp B/P (MAP) Pulse Ox O2 Delivery O2 Flow Rate FiO2 11/12/17 09:00 98.0 102 18 116/67 (83) 98 11/12/17 07:30 98.1 109 18 111/57 (75) 97 Room Air 11/12/17 07:30 110 18 97 Room Air 11/12/17 07:30 18 97 Room Air 11/12/17 04:34 114 16 116/74 (88) 98 Room Air 11/12/17 01:53 120 16 115/56 (75) 98 Room Air 11/12/17 00:08 124 16 132/77 (95) 99 Room Air 11/11/17 22:34 99.9 120 16 78/37 (51) 100 11/11/17 22:30 16 99 Room Air I/O 11/11/17 11/11/17 11/11/17 11/12/17 11/12/17 11/12/17 07:00 15:00 23:00 07:00 15:00 23:00 Intake Total 350 ml Output Total 500 ml Balance -150 ml Intake Oral 300 ml IV Total 50 ml Output Urine Total 500 ml # Voids 0 # Bowel Movements 0 Result Diagram: 11/11/175 11/11/175 Imaging Last Impressions Chest CT 11/12/17 0000 Signed Impressions: CONCLUSION: 1. Mild patchy infiltrate in the right lower lobe could indicate early pneumon ia. 2. Cardiomegaly with small amount of pericardial fluid present. 3. Mild coronary artery calcifications. Abdomen/Pelvis CT 11/12/17 0000 Signed Impressions: CONCLUSION: 1. Small pericardial effusion again noted. 2. Patchy mild opacity is again noted in the right lower lobe. 3. Mildly nonspecific bowel gas pattern with no evidence of obstruction. Chest X-Ray 11/11/17 0000 Signed Impressions: CONCLUSION: No acute cardiopulmonary disease. Objective Remarks GENERAL:elderly male, in no apparent distress. CARDIOVASCULAR: Regular rate and regular rhythm without murmurs, gallops, or rubs. RESPIRATORY: Clear to auscultation. Breath sounds equal bilaterally. No wheezes , rales, or rhonchi. GASTROINTESTINAL: Abdomen soft, non-tender, nondistended. Normal, active bowel sounds MUSCULOSKELETAL: Extremities without clubbing, cyanosis, or edema. NEURO: awake and alert Medications and IVs Inpatient Medications Acetaminophen (Tylenol) 650 mg Q6H PRN PO PAIN SCALE 1 TO 10; Start 11/12/17 at 02:00 Albuterol/ Ipratropium (Duoneb Neb) 1 ampule Q2HR NEB PRN INH WHEEZING; Start 11/12/17 at 01:45 Bisacodyl (Dulcolax Supp) 10 mg DAILY PRN RECTAL SEVERE CONSITIPATION; Start at 01:45 Famotidine (Pepcid) 20 mg Q12HR PO Last administered on 11/12/17at 07:40; Start 11/12/17 at 09:00 Heparin Sodium (Porcine) (Heparin Inj) 5,000 units Q8H SQ Last administered on 11/12/17at 09:27; Start 11/12/17 at 01:45 Lactated Ringer's 1,000 ml @ 999 mls/hr BOLUS ONCE IV Last administered on at 02:12; Start 11/12/17 at 02:00; Stop 11/12/17 at 03:00; Status DC Lactulose (Lactulose Liq) 30 ml DAILY PRN PO SEVERE CONSITIPATION; Start at 01:45 Magnesium Hydroxide (Milk Of Magnesia Liq) 30 ml Q12H PRN PO Mild constipation ; Start 11/12/17 at 01:45 Miscellaneous Information ([facility] [place] Nursing Information) "NEED HT & WT FOR VANCOMY... Q15M .XX ; Start 11/12/17 at 02:00; Stop 11/12/17 at 07:01; Status DC Ondansetron HCl (Zofran Odt) 4 mg Q6H PRN PO NAUSEA OR VOMITING; Start at 01:45 Pharmacy Profile Note 0 ml @ 0 mls/hr UNSCH OTHER ; Start 11/12/17 at 01:45 Piperacillin Sod/ Tazobactam Sod 50 ml @ 100 mls/hr Q8H IV Last administered on 11/12/17at 07:40; Start 11/12/17 at 07:00; Stop 11/19/17 at 06:59 Risperidone (risperDAL) 1 mg HS PO ; Start 11/12/17 at 21:00 Senna/Docusate Sodium (Rufina-Colace) 1 tab BID PO Last administered on at 07:40; Start 11/12/17 at 09:00 Sennosides (Senokot) 17.2 mg Q12H PRN PO Moderate constipation; Start 11/12/17 at 01:45 Vancomycin HCl 1000 mg/Sodium Chloride 250 ml @ 250 mls/hr ONCE ONCE IV Last administered on 11/12/17at 01:40; Start 11/11/17 at 23:30; Stop 11/12/17 at 00:29 ; Status DC A/P Assessment and Plan A/P Severe Sepsis with organ dysfunction- suspect pneumonia/ UTI - vancomycin with pharmacy dosing - zosyn 3.375gm iv q8h (given renal dysfunction) -continue IV fluid - blood cultures, sputum culture, urine culture- pending. Urinary Tract Infection - abx as above. - urine culture Acute kidney injury - ivf as above - trend on daily bmp - keep resendiz today. if Cr improves as expected as illness improves, would d/c resendiz tomorrow. Sinus tachycardia - secondary to SIRS response. will not beta blockade at this time. continue IV fluid. - telemetry unit Schizophrenia - continue home meds Hypertension - hold home antihypertensives in the setting of recent hypotension. - add back prn for goal sbp < 180. Heart healthy diet as tolerated after bedside swallow eval. SCDs [facility] Kevin Sauceda MD Nov 12, 2017 10:48
[2017-11-12 14:38] LABS: BICARBONATE 18.7 MEQ/L (21.0-32.0); CALCIUM 7.4 MG/DL (8.5-10.1); CREATININE 1.47 MG/DL (0.60-1.30)
[2017-11-12 15:12] LABS: CALCIUM-PROTEIN CORRECTED 8.4 MG/DL (8.5-10.1); TOTAL PROTEIN 5.3 GM/DL (6.4-8.2)
--- NOTE | 2017-11-12 17:11 | EKG ---
Date Performed: 11/12/2017 Time Performed: 00:48:45 PTAGE: 77 years EKG: Sinus tachycardia Atrial premature complexes Left axis deviation Left anterior fascicular b lock Compared to previous tracing, heart rate has increased. ABNORMAL ECG PREVIOUS TRACING : 07/18/2017 14.38 DOCTOR: Lux Doshi Interpretating Date/Time 11/12/2017 17:10:10
[2017-11-12] MEDS: risperiDONE 1 MG TAB PO SCH (21:28)
[2017-11-13] VITALS: BP 108/79; PULSE 100; RESP 23; TEMP 98.8; O2SAT 96
[2017-11-13] MEDS ORDERED: VANCOMYCIN 1,000 MG/NS 250 ML IV ONE ×2
[2017-11-13] MEDS: LACTATED RINGER'S 1000 ML INJ 1,000 ML IV SCH ×2 (00:06→07:40)
[2017-11-13] MEDS: HEPARIN SODIUM - SQ 10,000 UNITS/ML VIAL SQ SCH ×3 (03:36→17:55)
[2017-11-13 04:00] VITALS: BP 116/81; PULSE 102; RESP 16; TEMP 98.6; O2SAT 97
[2017-11-13 04:52] LABS: HEMATOCRIT 33.4 % (39.0-51.0); HEMOGLOBIN 11.2 GM/DL (13.0-17.0); MEAN CELL VOLUME 84.3 FL (80.0-100.0); MEAN CORPUSCULAR HEMOGLOBIN 28.2 PG (27.0-34.0); MEAN CORPUSCULAR HGB CONC 33.5 % (32.0-36.0); MEAN PLATELET VOLUME 8.8 FL (7.0-11.0); PLATELET COUNT 174 TH/MM3 (150-450); RED BLOOD COUNT 3.96 MIL/MM3 (4.50-5.90); RED CELL DISTRIBUTION WIDTH 15.1 % (11.6-17.2); WHITE BLOOD COUNT 17.1 TH/MM3 (4.0-11.0)
[2017-11-13 05:17] LABS: BICARBONATE 17.7 MEQ/L (21.0-32.0); CALCIUM 7.2 MG/DL (8.5-10.1); CREATININE 1.05 MG/DL (0.60-1.30)
[2017-11-13 06:24] LABS: CALCIUM-PROTEIN CORRECTED 8.7 MG/DL (8.5-10.1); TOTAL PROTEIN 4.4 GM/DL (6.4-8.2)
[2017-11-13] MEDS: PIPERACIL-TAZO 3.375 GM PREMIX 50 ML IV SCH ×3 (06:28→22:49)
[2017-11-13] MEDS: DOCUSATE SODIUM 50 MG/SENNA 8.6 MG TAB PO SCH ×2 (07:25→21:46)
[2017-11-13 08:00] VITALS: BP 110/57; PULSE 97; PULSE 99; RESP 17; TEMP 98.3; O2SAT 96
[2017-11-13] MEDS: FAMOTIDINE 20 MG TAB PO SCH ×2 (08:31→21:46)
[2017-11-13] MEDS ORDERED: POTASSIUM CHLORIDE 25 MEQ EFFERVESCENT TAB PO ONE ×2 (08:45→13:00)
--- NOTE | 2017-11-13 08:52 | HHI.PR ---
Subjective Remarks in no acute distress. remains afebrile. denies pain pr sob. noted some pinkish urine in the resendiz bag. had some loose BM's. d/w the RN at the bedside. Objective Vitals Vital Signs Date Time Temp Pulse Resp B/P (MAP) Pulse Ox O2 Delivery O2 Flow Rate FiO2 11/13/17 08:00 98.3 99 17 110/57 (74) 96 11/13/17 04:00 98.6 102 16 116/81 (93) 97 11/13/17 00:00 98.8 100 23 108/79 (89) 96 11/12/17 20:20 97.9 102 25 116/55 (75) 97 11/12/17 20:00 100 11/12/17 16:00 98.2 104 22 110/57 (74) 98 11/12/17 12:00 97.7 107 18 116/61 (79) 98 11/12/17 10:44 98.1 111 23 119/57 (77) 99 11/12/17 10:10 97.9 102 18 112/67 (82) 98 11/12/17 09:00 98.0 102 18 116/67 (83) 98 I/O 11/12/17 11/12/17 11/12/17 11/13/17 11/13/17 11/13/17 07:00 15:00 23:00 07:00 15:00 23:00 Intake Total 350 ml 120 ml 1478 ml Output Total 1000 ml 800 ml Balance -650 ml 120 ml 678 ml Intake Oral 300 ml 120 ml 240 ml IV Total 50 ml 1238 ml Output Urine Total 1000 ml 800 ml # Voids 1 # Bowel Movements 1 1 Result Diagram: 11/13/17 0357 11/13/17 0357 Imaging Last Impressions Chest CT 11/12/17 0000 Signed Impressions: CONCLUSION: 1. Mild patchy infiltrate in the right lower lobe could indicate early pneumon ia. 2. Cardiomegaly with small amount of pericardial fluid present. 3. Mild coronary artery calcifications. Abdomen/Pelvis CT 11/12/17 0000 Signed Impressions: CONCLUSION: 1. Small pericardial effusion again noted. 2. Patchy mild opacity is again noted in the right lower lobe. 3. Mildly nonspecific bowel gas pattern with no evidence of obstruction. Chest X-Ray 11/11/17 0000 Signed Impressions: CONCLUSION: No acute cardiopulmonary disease. Objective Remarks GENERAL:elderly male, in no apparent distress. CARDIOVASCULAR: Regular rate and regular rhythm without murmurs, gallops, or rubs. RESPIRATORY: Clear to auscultation. Breath sounds equal bilaterally. No wheezes , rales, or rhonchi. GASTROINTESTINAL: Abdomen soft, non-tender, nondistended. Normal, active bowel sounds MUSCULOSKELETAL: Extremities without clubbing, cyanosis, or edema. NEURO: awake and alert Medications and IVs Inpatient Medications Acetaminophen (Tylenol) 650 mg Q6H PRN PO PAIN SCALE 1 TO 10; Start 11/12/17 at 02:00 Albuterol/ Ipratropium (Duoneb Neb) 1 ampule Q2HR NEB PRN INH WHEEZING; Start 11/12/17 at 01:45 Bisacodyl (Dulcolax Supp) 10 mg DAILY PRN RECTAL SEVERE CONSITIPATION; Start at 01:45 Famotidine (Pepcid) 20 mg Q12HR PO Last administered on 11/13/17at 08:31; Start 11/12/17 at 09:00 Heparin Sodium (Porcine) (Heparin Inj) 5,000 units Q8H SQ Last administered on 11/13/17at 08:31; Start 11/12/17 at 01:45 Lactated Ringer's 1,000 ml @ 999 mls/hr BOLUS ONCE IV Last administered on at 02:12; Start 11/12/17 at 02:00; Stop 11/12/17 at 03:00; Status DC Lactulose (Lactulose Liq) 30 ml DAILY PRN PO SEVERE CONSITIPATION; Start at 01:45 Magnesium Hydroxide (Milk Of Magnesia Liq) 30 ml Q12H PRN PO Mild constipation ; Start 11/12/17 at 01:45 Miscellaneous Information ([facility] [place] Nursing Information) "NEED HT & WT FOR VANCOMY... Q15M .XX ; Start 11/12/17 at 02:00; Stop 11/12/17 at 07:01; Status DC Ondansetron HCl (Zofran Odt) 4 mg Q6H PRN PO NAUSEA OR VOMITING; Start at 01:45 Pharmacy Profile Note 0 ml @ 0 mls/hr UNSCH OTHER ; Start 11/12/17 at 01:45 Piperacillin Sod/ Tazobactam Sod 50 ml @ 100 mls/hr Q8H IV Last administered on 11/13/17 06:28; Start 11/12/17 at 07:00; Stop 11/19/17 at 06:59 Risperidone (risperDAL) 1 mg HS PO Last administered on 11/12/17at 21:28; Start 11/12/17 at 21:00 Senna/Docusate Sodium (Rufina-Colace) 1 tab BID PO Last administered on at 21:28; Start 11/12/17 at 09:00 Sennosides (Senokot) 17.2 mg Q12H PRN PO Moderate constipation; Start 11/12/17 at 01:45 Vancomycin HCl 1000 mg/Sodium Chloride 250 ml @ 250 mls/hr ONCE ONCE IV Last administered on 11/13/17 00:00; Start 11/13/17 at 00:00; Stop 11/13/17 at 00:59 ; Status DC A/P Assessment and Plan A/P Severe Sepsis - suspect pneumonia/ UTI - vancomycin with pharmacy dosing - zosyn 3.375gm iv q8h (given renal dysfunction) -will deescalate the antibiotic regimen within the next 24 hrs- pending the clinical course and cultures. -continue IV fluid Urinary Tract Infection hematuria - abx as above. - follow the urine culture -continue with resendiz for now to monitor the urine output and hematuria Acute kidney injury- resolved - will decrease the IV fluid -continue to monitor. Hypokalemia - will replace and monitor. -check magnesium level. Sinus tachycardia - secondary to SIRS response. will not beta blockade at this time. continue IV fluid. - telemetry unit Schizophrenia - continue home meds Hypertension - hold home antihypertensives in the setting of recent hypotension. -BP controlled. - add back prn for goal sbp < 180. left heel wound - consult wound care diarrhea -check for c-diff. - DVT prophylaxis with subq Heparin -consult PT/ST Discharge Planning dc planning; within the next 2-3 days if stable- pending PT evaluation. Kevin Sauceda MD Nov 13, 2017 08:52
[2017-11-13] MEDS ORDERED: POTASSIUM CHLOR 20 MEQ PREMIX 100 ML IV ONE (09:00)
[2017-11-13 12:00] VITALS: BP 113/64; PULSE 99; RESP 17; TEMP 98.2; O2SAT 97
[2017-11-13] MEDS: SODIUM CHLOR 0.9% 1000 ML INJ 1,000 ML IV SCH (14:55)
[2017-11-13 16:00] VITALS: BP 115/60; PULSE 92; RESP 20; TEMP 97.9; O2SAT 98
[2017-11-13 20:00] VITALS: BP 116/58; PULSE 107; RESP 24; TEMP 98; O2SAT 98
[2017-11-13] MEDS: risperiDONE 1 MG TAB PO SCH (21:46)
[2017-11-14] VITALS (9 sets, daily range): BP systolic 126–193; BP diastolic 63–95; PULSE 52–99; RESP 12–28; TEMP 97.4–98.5; O2SAT 95–98
[2017-11-14] MEDS ORDERED: VANCOMYCIN INJ 1,250 MG in SODIUM CHLOR 0.9% 250 ML INJ 250 ML IV SCH ×2
[2017-11-14] MEDS: SODIUM CHLOR 0.9% 1000 ML INJ 1,000 ML IV SCH ×2 (02:16→08:01)
[2017-11-14] MEDS: PIPERACIL-TAZO 3.375 GM PREMIX 50 ML IV SCH ×3 (06:09→22:30)
[2017-11-14 06:12] LABS: BASOPHIL # 0.1 TH/MM3 (0-0.2); BASOPHIL % 0.7 % (0.0-2.0); EOSINOPHIL # 0.2 TH/MM3 (0-0.4); EOSINOPHIL % 2.1 % (0.0-4.0); HEMATOCRIT 32.4 % (39.0-51.0); HEMOGLOBIN 10.9 GM/DL (13.0-17.0); LYMPH % 10.2 % (9.0-44.0); MEAN CELL VOLUME 85.2 FL (80.0-100.0); MEAN CORPUSCULAR HEMOGLOBIN 28.6 PG (27.0-34.0); MEAN CORPUSCULAR HGB CONC 33.6 % (32.0-36.0); MEAN PLATELET VOLUME 8.8 FL (7.0-11.0); MONO % 8.3 % (0.0-8.0); MONOCYTE # 0.8 TH/MM3 (0-0.9); NEUT % 78.7 % (16.0-70.0); PLATELET COUNT 173 TH/MM3 (150-450); RED CELL DISTRIBUTION WIDTH 15.5 % (11.6-17.2); WHITE BLOOD COUNT 10.2 TH/MM3 (4.0-11.0)
[2017-11-14 06:55] LABS: CALCIUM 7.1 MG/DL (8.5-10.1); CREATININE 0.75 MG/DL (0.60-1.30)
[2017-11-14 07:08] LABS: CALCIUM-PROTEIN CORRECTED 8.7 MG/DL (8.5-10.1); TOTAL PROTEIN 4.2 GM/DL (6.4-8.2)
[2017-11-14] MEDS: DOCUSATE SODIUM 50 MG/SENNA 8.6 MG TAB PO SCH ×2 (08:01→22:30)
[2017-11-14] MEDS: FAMOTIDINE 20 MG TAB PO SCH ×2 (08:01→22:30)
--- NOTE | 2017-11-14 08:53 | HHI.PR ---
Subjective Remarks in no acute distress. overall looks better. hematuria has resolved. reported by the RN that some blood was noticed with the the stool last night. denies abdominal pain. Objective Vitals Vital Signs Date Time Temp Pulse Resp B/P (MAP) Pulse Ox O2 Delivery O2 Flow Rate FiO2 11/14/17 08:00 98.3 92 12 127/63 (84) 98 11/14/17 04:00 97.8 99 21 145/67 (93) 96 11/14/17 00:05 97.6 96 21 127/66 (86) 97 11/13/17 20:00 98.0 107 24 116/58 (77) 98 11/13/17 16:00 97.9 92 20 115/60 (78) 98 11/13/17 12:00 98.2 99 17 113/64 (80) 97 I/O 11/13/17 11/13/17 11/13/17 11/14/17 11/14/17 11/14/17 07:00 15:00 23:00 07:00 15:00 23:00 Intake Total 1478 ml 360 ml 1810 ml Output Total 800 ml 325 ml 400 ml Balance 678 ml 35 ml 1410 ml Intake Oral 240 ml 360 ml 460 ml IV Total 1238 ml 1350 ml Output Urine Total 800 ml 325 ml 400 ml # Bowel Movements 4 1 Result Diagram: 11/14/17 0530 11/14/17 0530 Objective Remarks GENERAL:elderly male, in no apparent distress. CARDIOVASCULAR: Regular rate and regular rhythm without murmurs, gallops, or rubs. RESPIRATORY: Clear to auscultation. Breath sounds equal bilaterally. No wheezes , rales, or rhonchi. GASTROINTESTINAL: Abdomen soft, non-tender, nondistended. Normal, active bowel sounds MUSCULOSKELETAL: Extremities without clubbing, cyanosis, or edema. NEURO: awake and alert Medications and IVs Inpatient Medications Acetaminophen (Tylenol) 650 mg Q6H PRN PO PAIN SCALE 1 TO 10; Start 11/12/17 at 02:00 Albuterol/ Ipratropium (Duoneb Neb) 1 ampule Q2HR NEB PRN INH WHEEZING; Start 11/12/17 at 01:45 Bisacodyl (Dulcolax Supp) 10 mg DAILY PRN RECTAL SEVERE CONSITIPATION; Start at 01:45 Famotidine (Pepcid) 20 mg Q12HR PO Last administered on 11/14/17at 08:01; Start 11/12/17 at 09:00 Heparin Sodium (Porcine) (Heparin Inj) 5,000 units Q8H SQ Last administered on 11/13/17at 17:55; Start 11/12/17 at 01:45; Status Future Hold Lactated Ringer's 1,000 ml @ 999 mls/hr BOLUS ONCE IV Last administered on at 02:12; Start 11/12/17 at 02:00; Stop 11/12/17 at 03:00; Status DC Lactulose (Lactulose Liq) 30 ml DAILY PRN PO SEVERE CONSITIPATION; Start at 01:45 Magnesium Hydroxide (Milk Of Magnesia Liq) 30 ml Q12H PRN PO Mild constipation ; Start 11/12/17 at 01:45 Miscellaneous Information [place] [place] "NEED HT & WT FOR VANCOMY... Q15M .XX ; Start 11/12/17 at 02:00; Stop 11/12/17 at 07:01; Status DC Miscellaneous Information [place] [place] Info) SPECIFIC LAB TO BE DRAWN:VANCOMYCIN TROUGH DATE TO... ONCE ONCE .XX ; Start 11/14/17 at 23:45; Stop 11/14/17 at 23:46 Ondansetron HCl (Zofran Odt) 4 mg Q6H PRN PO NAUSEA OR VOMITING; Start at 01:45 Pharmacy Profile Note 0 ml @ 0 mls/hr UNSCH OTHER ; Start 11/12/17 at 01:45 Piperacillin Sod/ Tazobactam Sod 50 ml @ 100 mls/hr Q8H IV Last administered on 11/14/17at 06:09; Start 11/12/17 at 07:00; Stop 11/19/17 at 06:59 Potassium Bicarb/ Potassium Chloride (K-Lyte Cl Eff) 25 meq ONCE ONCE PO Last administered on 11/13/17at 12:46; Start 11/13/17 at 13:00; Stop 11/13/17 at 13:01; Status DC Potassium Chloride 100 ml @ 50 mls/hr BOLUS ONCE IV Last administered on 11/13at 09:43; Start 11/13/17 at 09:00; Stop 11/13/17 at 10:59; Status DC Risperidone (risperDAL) 1 mg HS PO Last administered on 11/13/17at 21:46; Start 11/12/17 at 21:00 Senna/Docusate Sodium (Rufina-Colace) 1 tab BID PO Last administered on at 08:01; Start 11/12/17 at 09:00 Sennosides (Senokot) 17.2 mg Q12H PRN PO Moderate constipation; Start 11/12/17 at 01:45 Sodium Chloride 1,000 ml @ 100 mls/hr Q10H IV Last administered on 11/14/17at 02:16; Start 11/13/17 at 14:45 Vancomycin HCl 1000 mg/Sodium Chloride 250 ml @ 250 mls/hr ONCE ONCE IV Last administered on 11/13/17at 00:00; Start 11/13/17 at 00:00; Stop 11/13/17 at 00:59 ; Status DC Vancomycin HCl 1250 mg/Sodium Chloride 262.5 ml @ 250 mls/hr Q24H IV Last administered on 11/13/17at 23:44; Start 11/14/17 at 00:00 A/P Assessment and Plan A/P Severe Sepsis - suspect pneumonia - on zosyn 3.375gm iv q8h (given renal dysfunction) - will dc Vancomycin. -one bottle of blood cultures positive for staph epidermidis; likely contamination. -continue IV fluid hematuria-resolved. -resendiz has been replaced- will likely dc resendiz cath tomorrow if good urine output with no recurrent hematurai. Acute kidney injury- resolved - will decrease the IV fluid -continue to monitor. -rectal bleed - patient had recent EGD with multiple esophageal ulcers. - continue to monitor H/H- will consult GI -stool negative for C-diff. Hypokalemia - will replace and monitor. Sinus tachycardia - secondary to SIRS response. will not beta blockade at this time. continue IV fluid. - telemetry unit Schizophrenia - continue home meds Hypertension - hold home antihypertensives in the setting of recent hypotension. -BP controlled. - add back prn for goal sbp < 180. left heel wound - consult wound care - hold subq Heaprin due to rectal bleed. -SCD's -consulted PT/ST Discharge Planning dc planning; within the next 1-2 days if stable- Kevin Sauceda MD Nov 14, 2017 08:53
[2017-11-14] MEDS ORDERED: POTASSIUM CHLOR 20 MEQ PREMIX 100 ML IV ONE (09:00)
[2017-11-14] MEDS ORDERED: SODIUM BICARBONATE 8.4% INJ 50 MEQ in SODIUM CHLOR 0.45% 1000 ML INJ 1,000 ML IV ONE (09:00)
[2017-11-14] MEDS ORDERED: POTASSIUM CHLORIDE 20 MEQ CONTROLLED RELEASE TAB PO ONE ×3 (09:00→17:00)
--- NOTE | 2017-11-14 12:02 | PD.CONS ---
HPI History of Present Illness This is a 77 year old M with PMH significant for HTN, hyperlipidemia, schizophrenia here for eye pain. GI consulted for rectal bleeding. Pt is a poor historian, history was obtained from pt, nurse and chart. Pt denies emesis , abd pain, melena, hematochezia, diarrhea or constipation. Per nurse, pt had streaks of blood with mucus from the rectum. Pt denies having previous colonoscopy and not interested in having one. hgb today is 10.9, this is a decline from 12.4 on (11/11). CT of A/P on 11/12/17 showed small pericardial effusion, patchy mild opacity is ago right lower lobe, nonspecific bowel gas pattern with no evidence of obstruction. Pt had hematuria but resolved. Pt was seen by our GI services early October for hematemesis. EGD on 10/25/17 1. Multiple large ulcers were found in the lower third of the esophagus; biopsies were taken 2. Normal duodenal mucosa in the bulb and second portion of the duodenum and 3rd part duodenum 3. Retroflexion was performed and was normal BX showed severe acute esophagitis with features of reflux ulceration associated epithelial atypia, (+) few fungal hypae and spores, consistent with randy ([place]) PFSH Past Medical History Hypertension Hyperlipidemia Schizophrenia Past Surgical History Tonsillectomy EGD ([place]) Coded Allergies: No Known Allergies (Unverified Allergy, Unknown, 11/11/17) Medications Current Medications Medications (Trade) Dose Ordered Sig/Cristo Route Start Time Stop Time Status Last Admin Piperacillin Sod/ Tazobactam Sod 50 ml @ 100 mls/hr Q8H IV 11/12/17 07:00 11/19/17 06:59 11/14/17 06:09 (Pepcid) 20 mg Q12HR PO 11/12/17 09:00 11/14/17 08:01 (Zofran Odt) 4 mg Q6H PRN PO 11/12/17 01:45 (Duoneb Neb) 1 ampule Q2HR NEB PRN INH 11/12/17 01:45 (Heparin Inj) 5,000 units Q8H SQ 11/12/17 01:45 Future Hold 11/13/17 17:55 (Rufina-Colace) 1 tab BID PO 6/23/18 09:00 11/14/17 08:01 (Milk Of Magnesia Liq) 30 ml Q12H PRN PO 11/12/17 01:45 (Senokot) 17.2 mg Q12H PRN PO 11/12/17 01:45 (Dulcolax Supp) 10 mg DAILY PRN RECTAL 11/12/17 01:45 (Lactulose Liq) 30 ml DAILY PRN PO 11/12/17 01:45 (Tylenol) 650 mg Q6H PRN PO 11/12/17 02:00 (risperDAL) 1 mg HS PO 11/12/17 21:00 11/13/17 21:46 (KCl) 40 meq ONCE ONCE PO 11/14/17 13:00 11/14/17 13:01 (KCl) 20 meq ONCE ONCE PO 11/14/17 17:00 11/14/17 17:01 Sodium Bicarbonate 50 meq/Sodium Chloride 1,050 ml @ 42 mls/hr Q24H ONCE IV 11/14/17 09:00 11/15/17 08:59 11/14/17 09:41 Family History Denies any family history colon cancer Social History denies tob, etoh, doa. ([place]) Review of Systems Constitutional: DENIES: Fever Endocrine: DENIES: Polyuria Eyes: DENIES: Double Vision Ears, nose, mouth, throat: DENIES: Hoarseness Respiratory: DENIES: Shortness of breath Cardiovascular: DENIES: Lower Extremity Edema Gastrointestinal: DENIES: Abdominal pain, Black stools, Bloody stools, Constipation, Diarrhea, Nausea, Vomiting, Difficulty Swallowing, Anorexia, Odynophagia, Swelling of Abdomen, Heartburn, Hematemesis Genitourinary: DENIES: Hematuria Musculoskeletal: DENIES: Back pain Integumentary: DENIES: Jaundice Immunologic/allergic: DENIES: Eczema Neurologic: DENIES: Abnormal gait Psychiatric: DENIES: Anxiety ([place]) GI Exam Vitals I&O Vital Signs Date Time Temp Pulse Resp B/P (MAP) Pulse Ox O2 Delivery O2 Flow Rate FiO2 11/14/17 08:00 98.3 92 12 127/63 (84) 98 11/14/17 04:00 97.8 99 21 145/67 (93) 96 11/14/17 00:05 97.6 96 21 127/66 (86) 97 11/13/17 20:00 98.0 107 24 116/58 (77) 98 11/13/17 16:00 97.9 92 20 115/60 (78) 98 11/13/17 12:00 98.2 99 17 113/64 (80) 97 I/O 11/13/17 11/13/17 11/13/17 11/14/17 11/14/17 11/14/17 07:00 15:00 23:00 07:00 15:00 23:00 Intake Total 1478 ml 360 ml 1810 ml Output Total 800 ml 325 ml 400 ml Balance 678 ml 35 ml 1410 ml Intake Oral 240 ml 360 ml 460 ml IV Total 1238 ml 1350 ml Output Urine Total 800 ml 325 ml 400 ml # Bowel Movements 4 1 Imaging Last Impressions Chest CT 11/12/17 0000 Signed Impressions: CONCLUSION: 1. Mild patchy infiltrate in the right lower lobe could indicate early pneumon ia. 2. Cardiomegaly with small amount of pericardial fluid present. 3. Mild coronary artery calcifications. Abdomen/Pelvis CT 11/12/17 0000 Signed Impressions: CONCLUSION: 1. Small pericardial effusion again noted. 2. Patchy mild opacity is again noted in the right lower lobe. 3. Mildly nonspecific bowel gas pattern with no evidence of obstruction. Chest X-Ray 11/11/17 0000 Signed Impressions: CONCLUSION: No acute cardiopulmonary disease. Laboratory Test 11/13/17 22:10 11/14/17 05:30 Stool C. difficile Toxin (PCR) NEGATIVE Stl C. difficile Toxin Epiderm 027 PRESUMPTIVE NEGATIVE White Blood Count 10.2 TH/MM3 Red Blood Count 3.80 MIL/MM3 Hemoglobin 10.9 GM/DL Hematocrit 32.4 % Mean Corpuscular Volume 85.2 FL Mean Corpuscular Hemoglobin 28.6 PG Mean Corpuscular Hemoglobin Concent 33.6 % Red Cell Distribution Width 15.5 % Platelet Count 173 TH/MM3 Mean Platelet Volume 8.8 FL Neutrophils (%) (Auto) 78.7 % Lymphocytes (%) (Auto) 10.2 % Monocytes (%) (Auto) 8.3 % Eosinophils (%) (Auto) 2.1 % Basophils (%) (Auto) 0.7 % Neutrophils # (Auto) 8.0 TH/MM3 Lymphocytes # (Auto) 1.0 TH/MM3 Monocytes # (Auto) 0.8 TH/MM3 Eosinophils # (Auto) 0.2 TH/MM3 Basophils # (Auto) 0.1 TH/MM3 CBC Comment DIFF FINAL Differential Comment Blood Urea Nitrogen 25 MG/DL Creatinine 0.75 MG/DL Random Glucose 80 MG/DL Total Protein 4.2 GM/DL Calcium Level 7.1 MG/DL Sodium Level 146 MEQ/L Potassium Level 2.7 MEQ/L Chloride Level 116 MEQ/L Carbon Dioxide Level 17.0 MEQ/L Anion Gap 13 MEQ/L Estimat Glomerular Filtration Rate 100 ML/MIN Protein Corrected Calcium 8.7 MG/DL Date/Time Source Procedure Growth Status 11/11/17 22:50 Blood Peripheral Aerobic Blood Culture - Preliminary NO GROWTH IN 3 DAYS Resulted 11/11/17 22:50 Blood Peripheral Anaerobic Blood Culture - Preliminary NO GROWTH IN 3 DAYS Resulted 11/11/17 22:45 Urine Catheterized Urine Legionella Antigen - Final PRESUMPTIVE NEGATIVE FOR LEGIONELLA P... Complete 11/11/17 22:45 Urine Catheterized Urine Streptococcus pneumoniae Antigen (M - Final PRESUMPTIVE NEGATIVE FOR STREPTOCOCCU... Complete Physical Examination HEENT: normocephalic; atraumatic; no jaundice. CHEST: Chest is clear to auscultation and percussion. CARDIAC: Regular rate and rhythm with no murmur gallop or rubs. ABDOMEN: Soft, nondistended, nontender; no hepatosplenomegaly; bowel sounds are present in all four quadrants. EXTREMITIES: No clubbing, cyanosis, or edema. SKIN: Normal; no rash; no jaundice. 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 ([place]) Assessment and Plan Plan - Rectal bleed/anemia- This is a 77 year old M with PMH significant for HTN, hyperlipidemia, schizophrenia here for severe sepsis. GI consulted for rectal bleeding. Pt is a poor historian, history was obtained from pt, nurse and chart. Pt denies emesis, abd pain, melena, hematochezia, diarrhea or constipation. Per nurse, pt had streaks of blood with mucus from the rectum. Pt denies having previous colonoscopy and not interested in having one. hgb today is 10.9, this is a decline from 12.4 on (11/11). CT of A/P on 11/12/17 showed small pericardial effusion, patchy mild opacity is ago right lower lobe, nonspecific bowel gas pattern with no evidence of obstruction. Pt had hematuria but resolved. Pt was seen by our GI services early October for hematemesis. EGD on 10/25/17 1. Multiple large ulcers were found in the lower third of the esophagus; biopsies were taken 2. Normal duodenal mucosa in the bulb and second portion of the duodenum and 3rd part duodenum 3. Retroflexion was performed and was normal BX showed severe acute esophagitis with features of reflux ulceration associated epithelial atypia, (+) few fungal hypae and spores, consistent with randy - Severe Sepsis - improving suspect pneumonia on abx - hematuria-resolved. - HTN, hyperlipidemia, schizophrenia per attending Plan: - Diet per attending - Pt is refusing EGD/colonoscopy, will monitor for now - Monitor hh - Transfuse as needed - Notify GI for active bleed, this was discussed with nurse - Famotidine Further recommendations based on findings of above Pt has been seen and examined by myself and Dr. Estrella and this note is written on her behalf ([place]) Physician Comments seen, examined agree with above (Krissy Estrella MD) [place] Nov 14, 2017 12:01 Krissy Estrella MD Nov 14, 2017 20:44
--- NOTE | 2017-11-14 12:20 | PD.WCN.NOT ---
Wound Consult Description: Consult for WOUND MANAGEMENT of left heel per Dr Sauceda Communicated with: CONNOR Velazco CNA Dr Minouei Recommendation: Left lateral heel Q3D: - Maxorb Extra AG - Gauze - Dagoberto - Float heels at all times Right heel Stage I: - Float heels at all times - Leave open to air and free of pressure Sacral Stage II/Bilateral buttocks moisture and friction related skin loss BID and PRN: - Calazime skin protectant paste - Strict 2 hour turns Additional Information: Patient seen on for wound evaluation of left lateral heel. Bordered gauze dressing removed to reveal a partial thickness skin loss open wound measuring 2cm x 1.2cm x ~0.2cm of moist red non granulating tissue with sharp open wound margins with minimal serosang drainage noted to removed dressing. Periwound is noted with diffuse non blanching purple discoloration indicating DTI that was skin prepped and allowed to dry prior to placing a Maxorb Extra AG primary dressing in wound bed that was covered with gauze and secured with dagoberto and tape dated today. Right heel was visualized with red non blanching erythema indicating a Stage I pressure injury that was floated off mattress surface along with the left heel using a pillow until blue heel raiser boots could be ordered and obtained. Patient was then positioned to his right side for assessment of sacrum, coccyx, and bilateral buttocks. Calazime skin protectant paste is noted with patient being incontinent of bowels. There are partial thickness skin loss areas are noted on the sacrum and gluteal cleft. Gluteal cleft wound measures 1cm x 0.3cm x 0.1cm of red non granulating tissue with jagged wound margins and no drainage or odor. Wound on sacrum measures 0.5cm x 0.5cm x 0.1cm with red non granulating tissue, no odor and no drainage with sharp well defined wound margins indicating a Stage II pressure injury. Recommend to continue Calazime skin protectant for incontinence and moisture with strict Q2H turn schedule. Siomara Dolan [facility] Nov 14, 2017 12:20
[2017-11-14] MEDS: risperiDONE 1 MG TAB PO SCH (22:30)
[2017-11-14] MEDS ORDERED: PHARMACY ORDERED LAB ONE (23:45)
[2017-11-15] VITALS: BP 133/63; PULSE 82; PULSE 85; RESP 20; TEMP 99.4; O2SAT 97
[2017-11-15 04:00] VITALS: BP 132/71; PULSE 83; RESP 18; TEMP 99; O2SAT 97
[2017-11-15 07:00] LABS: HEMATOCRIT 33.5 % (39.0-51.0); HEMOGLOBIN 11.2 GM/DL (13.0-17.0); MEAN CELL VOLUME 84.2 FL (80.0-100.0); MEAN CORPUSCULAR HEMOGLOBIN 28.1 PG (27.0-34.0); MEAN CORPUSCULAR HGB CONC 33.4 % (32.0-36.0); MEAN PLATELET VOLUME 8.1 FL (7.0-11.0); PLATELET COUNT 191 TH/MM3 (150-450); RED BLOOD COUNT 3.98 MIL/MM3 (4.50-5.90); RED CELL DISTRIBUTION WIDTH 15.5 % (11.6-17.2); WHITE BLOOD COUNT 7.8 TH/MM3 (4.0-11.0)
[2017-11-15 07:15] LABS: BICARBONATE 19.9 MEQ/L (21.0-32.0); CALCIUM 7.7 MG/DL (8.5-10.1); CREATININE 0.68 MG/DL (0.60-1.30)
[2017-11-15 08:00] VITALS: BP 127/71; PULSE 73; PULSE 86; PULSE 87; RESP 23; TEMP 98.1; O2SAT 98
--- NOTE | 2017-11-15 08:50 | HHI.PR ---
Subjective Remarks in no acute distress. no sob or fever. no reported recurrent rectal bleed. no acute issues over night. d/w the RN. Objective Vitals Vital Signs Date Time Temp Pulse Resp B/P (MAP) Pulse Ox O2 Delivery O2 Flow Rate FiO2 11/15/17 04:00 99.0 83 18 132/71 (91) 97 11/15/17 00:00 82 11/15/17 00:00 99.4 85 20 133/63 (86) 97 11/14/17 20:00 97.8 83 22 131/63 (85) 98 11/14/17 20:00 84 11/14/17 16:00 98.3 89 23 134/66 (88) 98 11/14/17 12:00 98.5 92 27 126/70 (88) 96 I/O 11/14/17 11/14/17 11/14/17 11/15/17 11/15/17 11/15/17 07:00 15:00 23:00 07:00 15:00 23:00 Intake Total 1810 ml 480 ml 360 ml Output Total 400 ml 400 ml 450 ml Balance 1410 ml 80 ml -90 ml Intake Oral 460 ml 480 ml 360 ml IV Total 1350 ml Output Urine Total 400 ml 400 ml 450 ml # Bowel Movements 1 3 2 Result Diagram: 11/15/17 0551 11/15/17 0551 Objective Remarks GENERAL:elderly male, in no apparent distress. CARDIOVASCULAR: Regular rate and regular rhythm without murmurs, gallops, or rubs. RESPIRATORY: Clear to auscultation. Breath sounds equal bilaterally. No wheezes , rales, or rhonchi. GASTROINTESTINAL: Abdomen soft, non-tender, nondistended. Normal, active bowel sounds MUSCULOSKELETAL: Extremities without clubbing, cyanosis, or edema. NEURO: awake and alert Procedures none Medications and IVs Inpatient Medications Acetaminophen (Tylenol) 650 mg Q6H PRN PO PAIN SCALE 1 TO 10; Start 11/12/17 at 02:00 Albuterol/ Ipratropium (Duoneb Neb) 1 ampule Q2HR NEB PRN INH WHEEZING; Start 11/12/17 at 01:45 Bisacodyl (Dulcolax Supp) 10 mg DAILY PRN RECTAL SEVERE CONSITIPATION; Start at 01:45 Famotidine (Pepcid) 20 mg Q12HR PO Last administered on 11/14/17at 22:30; Start 11/12/17 at 09:00 Heparin Sodium (Porcine) (Heparin Inj) 5,000 units Q8H SQ Last administered on 11/13/17at 17:55; Start 11/12/17 at 01:45; Status Future Hold Lactated Ringer's 1,000 ml @ 999 mls/hr BOLUS ONCE IV Last administered on at 02:12; Start 11/12/17 at 02:00; Stop 11/12/17 at 03:00; Status DC Lactulose (Lactulose Liq) 30 ml DAILY PRN PO SEVERE CONSITIPATION; Start at 01:45 Magnesium Hydroxide (Milk Of Magnesia Liq) 30 ml Q12H PRN PO Mild constipation ; Start 11/12/17 at 01:45 Miscellaneous Information ([facility] Nursing Information) "NEED HT & WT FOR VANCOMY... Q15M .XX ; Start 11/12/17 at 02:00; Stop 11/12/17 at 07:01; Status DC Miscellaneous Information ([facility] Pharmacy Ordered Lab Info) SPECIFIC LAB TO BE DRAWN:VANCOMYCIN TROUGH DATE TO... ONCE ONCE .XX ; Start 11/14/17 at 23:45; Stop 11/14/17 at 23:45; Status DC Ondansetron HCl (Zofran Odt) 4 mg Q6H PRN PO NAUSEA OR VOMITING; Start at 01:45 Pharmacy Profile Note 0 ml @ 0 mls/hr UNSCH OTHER ; Start 11/12/17 at 01:45; Stop 11/14/17 at 08:58; Status DC Piperacillin Sod/ Tazobactam Sod 50 ml @ 100 mls/hr Q8H IV Last administered on 11/14/17at 22:30; Start 11/12/17 at 07:00; Stop 11/19/17 at 06:59 Potassium Bicarb/ Potassium Chloride (K-Lyte Cl Eff) 25 meq ONCE ONCE PO Last administered on 11/13/17at 12:46; Start 11/13/17 at 13:00; Stop 11/13/17 at 13:01; Status DC Potassium Chloride (KCl) 20 meq ONCE ONCE PO Last administered on 11/14/17at 17 :32; Start 11/14/17 at 17:00; Stop 11/14/17 at 17:01; Status DC Risperidone (risperDAL) 1 mg HS PO Last administered on 11/14/17at 22:30; Start 11/12/17 at 21:00 Senna/Docusate Sodium (Rufina-Colace) 1 tab BID PO Last administered on at 22:30; Start 11/12/17 at 09:00 Sennosides (Senokot) 17.2 mg Q12H PRN PO Moderate constipation; Start 11/12/17 at 01:45 Sodium Bicarbonate 50 meq/Sodium Chloride 1,050 ml @ 42 mls/hr Q24H ONCE IV Last administered on 11/14/17at 09:41; Start 11/14/17 at 09:00; Stop 11/15/17 at 08:59 Sodium Chloride 1,000 ml @ 100 mls/hr Q10H IV Last administered on 11/14/17at 02:16; Start 11/13/17 at 14:45; Stop 11/14/17 at 08:59; Status DC Vancomycin HCl 1000 mg/Sodium Chloride 250 ml @ 250 mls/hr ONCE ONCE IV Last administered on 11/13/17at 00:00; Start 11/13/17 at 00:00; Stop 11/13/17 at 00:59 ; Status DC Vancomycin HCl 1250 mg/Sodium Chloride 262.5 ml @ 250 mls/hr Q24H IV Last administered on 11/13/17at 23:44; Start 11/14/17 at 00:00; Stop 11/14/17 at 08:58 ; Status DC A/P Assessment and Plan A/P Severe Sepsis - suspect pneumonia - on zosyn 3.375gm iv q8h (given renal dysfunction) - will switch to po antibiotic upon discharge. -one bottle of blood cultures positive for staph epidermidis; likely contamination. hematuria-resolved. -resendiz has been replaced- will dc resendiz cath today. Acute kidney injury- resolved -rectal bleed with no further recurrence - patient had recent EGD with multiple esophageal ulcers. - H/H stable- GI consulted; the patient declined GI w/u; d/w today and the patient was cleared for discharge by GI. -stool negative for C-diff. Hypokalemia -better- Sinus tachycardia- resolved. - secondary to SIRS response. will not beta blockade at this time. continue IV fluid. Schizophrenia - continue home meds Hypertension - BP controlled- off his home meds- will monitor for now. left heel wound - consulted wound care Discharge Planning dc to SNF today. see med list. f/u ; pcp and GI. d/w the patient and RN. d/w . time spent 35 min. Kevin Sauceda MD Nov 15, 2017 08:50
--- NOTE | 2017-11-15 08:51 | HHI.DS ---
Discharge Summary Admission Date Nov 12, 2017 at 01:54 Discharge Date: Nov 15, 2017 Admitting Diagnosis pneumonia (1) Pneumonia ICD Code: J18.9 - Pneumonia, unspecified organism Diagnosis: Principal (2) Dehydration ICD Code: E86.0 - Dehydration Diagnosis: Principal Status: Acute Procedures none Brief History - From Admission [id number] presents from SNF after being found hypotensive on vitals check tonight. in the ER was 70s/30s, received 2L crystalloid bolus ivf and had improved blood pressure. patient is a very poor historian and unable to provide any reliable history. he denies any complaints. the only thing he tells me is "I missed my eye doctor appointment last week." denies chest pain, sob, abdominal pain, frequency or urgency of urination, or any other symptoms. However, answers "no" to every question I ask him, so difficult to assess accuracy of his answers. in the ER, u/a is positive and has an elevated wbc count to 21k with bandemia and neutrophil predominance. cr elevated a 2.32 (baseline 0.6). CT chest/abd/pelvis positive for RLL infiltrate, however patient has no cough and is on room air. given organ dysfunction and hypotension, patient is admitted to the hospital for severe sepsis likely of urinary origin. remainder of the ROS is negative, but as described above, unclear the accuracy of the patient's answers. CBC/BMP: 11/15/17 0551 11/15/17 0551 Significant Findings Laboratory Tests Test 11/12/17 13:57 11/13/17 03:57 11/13/17 22:10 11/14/17 05:30 Blood Urea Nitrogen 40 MG/DL (7-18) 34 MG/DL (7-18) 25 MG/DL (7-18) Creatinine 1.47 MG/DL (0.60-1.30) Total Protein 5.3 GM/DL (6.4-8.2) 4.4 GM/DL (6.4-8.2) 4.2 GM/DL (6.4-8.2) Calcium Level 7.4 MG/DL (8.5-10.1) 7.2 MG/DL (8.5-10.1) 7.1 MG/DL (8.5-10.1) Potassium Level 3.0 MEQ/L (3.5-5.1) 2.8 MEQ/L (3.5-5.1) 2.7 MEQ/L (3.5-5.1) Chloride Level 111 MEQ/L (98-107) 114 MEQ/L (98-107) 116 MEQ/L (98-107) Carbon Dioxide Level 18.7 MEQ/L (21.0-32.0) 17.7 MEQ/L (21.0-32.0) 17.0 MEQ/L (21.0-32.0) Estimat Glomerular Filtration Rate 46 ML/MIN (>89) 68 ML/MIN (>89) Protein Corrected Calcium 8.4 MG/DL (8.5-10.1) White Blood Count 17.1 TH/MM3 (4.0-11.0) Red Blood Count 3.96 MIL/MM3 (4.50-5.90) 3.80 MIL/MM3 (4.50-5.90) Hemoglobin 11.2 GM/DL (13.0-17.0) 10.9 GM/DL (13.0-17.0) Hematocrit 33.4 % (39.0-51.0) 32.4 % (39.0-51.0) Neutrophils (%) (Auto) 78.7 % (16.0-70.0) Monocytes (%) (Auto) 8.3 % (0.0-8.0) Neutrophils # (Auto) 8.0 TH/MM3 (1.8-7.7) Sodium Level 146 MEQ/L (136-145) Test 11/15/17 05:51 Red Blood Count 3.98 MIL/MM3 (4.50-5.90) Hemoglobin 11.2 GM/DL (13.0-17.0) Hematocrit 33.5 % (39.0-51.0) Calcium Level 7.7 MG/DL (8.5-10.1) Sodium Level 147 MEQ/L (136-145) Potassium Level 3.3 MEQ/L (3.5-5.1) Chloride Level 117 MEQ/L (98-107) Carbon Dioxide Level 19.9 MEQ/L (21.0-32.0) Imaging Last Impressions Chest CT 11/12/17 Signed Impressions: CONCLUSION: 1. Mild patchy infiltrate in the right lower lobe could indicate early pneumon ia. 2. Cardiomegaly with small amount of pericardial fluid present. 3. Mild coronary artery calcifications. Abdomen/Pelvis CT 11/12/17 Signed Impressions: CONCLUSION: 1. Small pericardial effusion again noted. 2. Patchy mild opacity is again noted in the right lower lobe. 3. Mildly nonspecific bowel gas pattern with no evidence of obstruction. Chest X-Ray 11/11/17 Signed Impressions: CONCLUSION: No acute cardiopulmonary disease. PE at Discharge GENERAL:elderly male, in no apparent distress. CARDIOVASCULAR: Regular rate and regular rhythm without murmurs, gallops, or rubs. RESPIRATORY: Clear to auscultation. Breath sounds equal bilaterally. No wheezes , rales, or rhonchi. GASTROINTESTINAL: Abdomen soft, non-tender, nondistended. Normal, active bowel sounds MUSCULOSKELETAL: Extremities without clubbing, cyanosis, or edema. NEURO: awake and alert Hospital Course Severe Sepsis - suspect pneumonia - on zosyn 3.375gm iv q8h (given renal dysfunction) - will switch to po antibiotic upon discharge. -one bottle of blood cultures positive for staph epidermidis; likely contamination. hematuria-resolved. -resendiz has been replaced- will dc resendiz cath today. Acute kidney injury- resolved -rectal bleed with no further recurrence - patient had recent EGD with multiple esophageal ulcers. - H/H stable- GI consulted; the patient declined GI w/u; d/w today and the patient was cleared for discharge by GI. -stool negative for C-diff. Hypokalemia -better- Sinus tachycardia- resolved. - secondary to SIRS response. will not beta blockade at this time. continue IV fluid. Schizophrenia - continue home meds Hypertension - BP controlled- off his home meds- will monitor for now. left heel wound - consulted wound care Pt Condition on Discharge: Fair Discharge Disposition: Discharge to SNF Discharge Time: > 30 minutes Discharge Instructions DIET: Follow Instructions for: Heart Healthy Diet Activities you can perform: Regular-No Restrictions Kevin Sauceda MD Nov 15, 2017 08:51
[2017-11-15] MEDS ORDERED: LEVA500T33 PO (08:53)
[2017-11-15] MEDS ORDERED: POTASSIUM CHLORIDE 10 MEQ CONTROLLED RELEASE TAB PO ONE (09:00)
[2017-11-15] MEDS: PIPERACIL-TAZO 3.375 GM PREMIX 50 ML IV SCH (11:20)
[2017-11-15] MEDS: DOCUSATE SODIUM 50 MG/SENNA 8.6 MG TAB PO SCH (11:21)
[2017-11-15] MEDS: FAMOTIDINE 20 MG TAB PO SCH (11:21)
[2017-11-15 12:00] VITALS: BP 141/73; PULSE 84; PULSE 88; RESP 20; TEMP 98; O2SAT 98
--- NOTE | 2017-11-15 14:56 | HHI.GIFU ---
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 Pt denies any bleeding or GI issues, hh stable. (Lu [place]) Objective Vitals I&O Vital Signs Date Time Temp Pulse Resp B/P (MAP) Pulse Ox O2 Delivery O2 Flow Rate FiO2 11/15/17 12:00 98.0 88 20 141/73 (95) 98 11/15/17 08:00 98.1 87 23 127/71 (89) 98 11/15/17 04:00 99.0 83 18 132/71 (91) 97 11/15/17 00:00 82 11/15/17 00:00 99.4 85 20 133/63 (86) 97 11/14/17 20:00 97.8 83 22 131/63 (85) 98 11/14/17 20:00 84 11/14/17 16:00 98.3 89 23 134/66 (88) 98 I/O 11/14/17 11/14/17 11/14/17 11/15/17 11/15/17 11/15/17 06:59 14:59 22:59 06:59 14:59 22:59 Intake Total 1810 ml 480 ml 360 ml Output Total 400 ml 400 ml 450 ml Balance 1410 ml 80 ml -90 ml Intake Oral 460 ml 480 ml 360 ml IV Total 1350 ml Output Urine Total 400 ml 400 ml 450 ml # Bowel Movements 1 3 2 Laboratory Laboratory Tests Test 11/15/17 05:51 White Blood Count 7.8 Red Blood Count 3.98 Hemoglobin 11.2 Hematocrit 33.5 Mean Corpuscular Volume 84.2 Mean Corpuscular Hemoglobin 28.1 Mean Corpuscular Hemoglobin Concent 33.4 Red Cell Distribution Width 15.5 Platelet Count 191 Mean Platelet Volume 8.1 Blood Urea Nitrogen 17 Creatinine 0.68 Random Glucose 86 Calcium Level 7.7 Sodium Level 147 Potassium Level 3.3 Chloride Level 117 Carbon Dioxide Level 19.9 Anion Gap 10 Estimat Glomerular Filtration Rate 112 Date/Time Source Procedure Growth Status 11/11/17 22:50 Blood Peripheral Aerobic Blood Culture - Preliminary NO GROWTH IN 4 DAYS Resulted 11/11/17 22:50 Blood Peripheral Anaerobic Blood Culture - Preliminary NO GROWTH IN 4 DAYS Resulted 11/11/17 22:45 Urine Catheterized Urine Legionella Antigen - Final PRESUMPTIVE NEGATIVE FOR LEGIONELLA P... Complete 11/11/17 22:45 Urine Catheterized Urine Streptococcus pneumoniae Antigen (M - Final PRESUMPTIVE NEGATIVE FOR STREPTOCOCCU... Complete Imaging Last Impressions Chest CT 11/12/17 0000 Signed Impressions: CONCLUSION: 1. Mild patchy infiltrate in the right lower lobe could indicate early pneumon ia. 2. Cardiomegaly with small amount of pericardial fluid present. 3. Mild coronary artery calcifications. Abdomen/Pelvis CT 11/12/17 0000 Signed Impressions: CONCLUSION: 1. Small pericardial effusion again noted. 2. Patchy mild opacity is again noted in the right lower lobe. 3. Mildly nonspecific bowel gas pattern with no evidence of obstruction. Chest X-Ray 11/11/17 0000 Signed Impressions: CONCLUSION: No acute cardiopulmonary disease. Physical Exam HEENT: normocephalic; atraumatic; no jaundice. CHEST: Chest is clear to auscultation and percussion. CARDIAC: Regular rate and rhythm with no murmur gallop or rubs. ABDOMEN: Soft, nondistended, nontender; no hepatosplenomegaly; bowel sounds are present in all four quadrants. EXTREMITIES: No clubbing, cyanosis, or edema. SKIN: Normal; no rash; no jaundice. BUGGYMAN: Alert and oriented (Lu V[place]la) Assessment and Plan Plan - Rectal bleed/anemia- HH stable with some improvement. no more bleeding reported. Pt denies having previous colonoscopy and not interested in having one. CT of A/P on 11/12/17 showed small pericardial effusion, patchy mild opacity is ago right lower lobe, nonspecific bowel gas pattern with no evidence of obstruction. Pt had hematuria but resolved. Pt was seen by our GI services early October for hematemesis. EGD on 10/25/17 1. Multiple large ulcers were found in the lower third of the esophagus; biopsies were taken 2. Normal duodenal mucosa in the bulb and second portion of the duodenum and 3rd part duodenum 3. Retroflexion was performed and was normal BX showed severe acute esophagitis with features of reflux ulceration associated epithelial atypia, (+) few fungal hypae and spores, consistent with randy - Severe Sepsis - improving suspect pneumonia on abx - hematuria-resolved. - HTN, hyperlipidemia, schizophrenia per attending Plan: - Diet per attending - Pt is refusing EGD/colonoscopy, will monitor for now - Monitor hh - Transfuse as needed - Notify GI for active bleed, this was discussed with nurse - Famotidine Further recommendations based on findings of above Pt has been seen and examined by myself and Dr. Estrella and this note is written on her behalf (Lu V[place]la) Physician Comments gi will sign off call us as needed if dc fu office (Krissy Estrella MD) [place]la Nov 15, 2017 14:56 Krissy Estrella MD Nov 15, 2017 16:45
[2017-11-15] MEDS ORDERED: PIPERACIL-TAZO 3.375 GM PREMIX 50 ML IV SCH (19:00)
== END 2017-11-15 16:30 | DRG 871 ==
LOC: NEPC 22:25 → NEDA 11-12 01:54 → NEDH 11-12 07:23 → N03B 11-12 10:44
PROVIDERS: ADMIT Internal Medicine; ATTEND Internal Medicine
PROC: 04HL33Z Insertion of Infusion Device into Left Femoral Artery, Percutaneous Approach (ICD-10-PCS; principal; 2017-11-12)
DX: A41.9 Sepsis, unspecified organism (principal); J18.9 Pneumonia, unspecified organism; N17.9 Acute kidney failure, unspecified; L89.152 Pressure ulcer of sacral region, stage 2; I95.9 Hypotension, unspecified; N39.0 Urinary tract infection, site not specified; F03.90 Unspecified dementia, unspecified severity, without behavioral disturbance, psychotic disturbance, mood disturbance, and anxiety; L89.621 Pressure ulcer of left heel, stage 1; L89.611 Pressure ulcer of right heel, stage 1; K62.5 Hemorrhage of anus and rectum; E86.0 Dehydration; D64.9 Anemia, unspecified; R65.20 Severe sepsis without septic shock; I10 Essential (primary) hypertension; E78.5 Hyperlipidemia, unspecified; F20.9 Schizophrenia, unspecified; R00.0 Tachycardia, unspecified; E87.6 Hypokalemia; K21.0 Gastro-esophageal reflux disease with esophagitis; N40.0 Benign prostatic hyperplasia without lower urinary tract symptoms; F29 Unspecified psychosis not due to a substance or known physiological condition; R15.9 Full incontinence of feces; R19.7 Diarrhea, unspecified; R31.9 Hematuria, unspecified
CPT/HCPCS: 36556; 71045; 71250; 74150; 74176; 80048; 80053; 81001; 82140; 83605; 83735; 84155; 85007; 85025; 85027; 85610; 85730; 87040; 87070; 87086; 87186; 87205; 87449; 87493; 93005; 94150; 94640; 94667; 94668; 96365; 96375; J0131; J1644; J2543; J3370; J3480; J7030; J7050; J7120